=== PATIENT | female | born 1970 | race Caucasian/White ===

== ENCOUNTER 2017-09-28 15:01 | Emergency (ER) | payer OTHER, MEDICARE ==
[~2017-09-28] VITALS: Ht 165.1 cm; Wt 90.7 kg
[~2017-09-28 15:01] MED LIST: AMOXICILLIN125 MG PO; DEPLIN15 MG PO; DIAZEPAM2 MG PO; DOXYCYCLINE HY100 MG PO; FLAGYL500 MG PO; HYDROCODON-ACE1 EAC8 PO; KEPPRA500 MG PO; LEVEMIR FL100 UNIT/1 SQ; LEVEMIR100 UNIT/1 SUB-Q; LEVOTHYROXINE75 MCG PO; LYRICA75 MG PO; METANX CAPSULE1 EACH PO; METOPROLOL SUCC25 MG PO; OXYCODONE HCL5 M1 PO; PERCOCET 5-3251 EACH PO; SIMVASTATIN40 MG PO; UNIVASC15 MG PO; VALACYCLOVIR1000 MG PO; VERAPAMIL ER120 M1 PO; VITAMIN D5000 UNIT; [UNRECOGNIZED DRUG - OTHER] IM; [UNRECOGNIZED DRUG - OTHER] PO
== END 2017-09-28 18:55 | disposition home or self-care (01) ==
LOC: ED 15:01
DX: G43.909 Migraine, unspecified, not intractable, without status migrainosus (principal); F17.200 Nicotine dependence, unspecified, uncomplicated; Z90.710 Acquired absence of both cervix and uterus; Z90.49 Acquired absence of other specified parts of digestive tract; Z88.5 Allergy status to narcotic agent; Z88.8 Allergy status to other drugs, medicaments and biological substances; Z79.4 Long term (current) use of insulin; Z79.899 Other long term (current) drug therapy
CPT/HCPCS: 96374; 96375; 99282; J1200; J1885; J2405; J2765; J7030

== ENCOUNTER 2017-10-10 12:14 | Emergency (ER) | payer OTHER, MEDICARE ==
[~2017-10-10] VITALS: Ht 165.1 cm; Wt 86.2 kg
--- OUTSIDE RECORDS SUMMARY | ~2017-10-10 | XMS | Clinical Summary ---
Demographics + + + | Address | [address] | | | [place] [address] | + + + | Home Phone | | + + + | Preferred Language | Unknown | + + + | Marital Status | | + + + | Gnosticist Affiliation | Unknown | + + + | Race | White | + + + | Ethnic Group | Not or | + + + Author + + + | Author | [facility] | + + + | Organization | [facility] | + + + | Address | Unknown | + + + | Phone | Unavailable | + + + Support +------+ +---------+ + | Name | Relationship | Address | Phone | +------+ +---------+ + ECON | Unknown | | +------+ +---------+ + Care Team Providers + +------+ + | Care Performance Consultant Name | Role | Phone | + +------+ + PP | Unavailable | + +------+ + Source Comments [facility] is fully live on both [facility] and [facility] InPatient[facility] Allergies + + + + + + | Active Allergy | Reactions | Severity | Noted | Comments | | | | | Date | | + + + + + + | Codeine | | High | 12/26/19 | | | | | | 07 | | + + + + + + Current Medications + + +-------+---------+------+------+-------+ | Prescription | Sig. | Disp. | Refills | Star | End | Statu | | | | | | t | Date | s | | | | | | Date | | | + + +-------+---------+------+------+-------+ | INSULIN 70/30 SC | None Entered | | | | | Activ | | | | | | | | e | + + +-------+---------+------+------+-------+ | TOPAMAX 25 MG TAB | 2 tabs q am, 3 tabs | | | | | Activ | | | q hs | | | | | e | + + +-------+---------+------+------+-------+ | UNIVASC OR | 30 mg qd | | | | | Activ | | | | | | | | e | + + +-------+---------+------+------+-------+ | GABAPENTIN 100 MG | 2 tabs qid | | | | | Activ | | TAB | | | | | | e | + + +-------+---------+------+------+-------+ | CYMBALTA 30 MG CAP | 3 caps qd | | | | | Activ | | | | | | | | e | + + +-------+---------+------+------+-------+ | SEROQUEL 300 MG | take 1 tablet | | | | | Activ | | TAB | (300mg) by oral | | | | | e | | | route once daily | | | | | | + + +-------+---------+------+------+-------+ | VICODIN HP 10 | take 1 tablet by | | | | | Activ | | MG-660 MG TAB | oral route every 4-6 | | | | | e | | | hours as needed for | | | | | | | | pain | | | | | | + + +-------+---------+------+------+-------+ | alprazolam (XANAX) | Take 1 mg by mouth | | | | | Activ | | 1 mg Oral Tablet | as needed. | | | | | e | + + +-------+---------+------+------+-------+ | levothyroxine 75 | Take 75 mcg by mouth | | | | | Activ | | mcg Oral Tablet | once daily. | | | | | e | + + +-------+---------+------+------+-------+ | Albuterol, Refill, | Inhale. | | | | | Activ | | 90 mcg/Actuation | | | | | | e | | Inhalation Aerosol | | | | | | | + + +-------+---------+------+------+-------+ | pregabalin | Take by mouth two | | | | | Activ | | (LYRICA) 75 mg Oral | times daily. Max: | | | | | e | | Capsule | 600 mg/day | | | | | | + + +-------+---------+------+------+-------+ | tizanidine | Take 4 mg by mouth | | | | | Activ | | (ZANAFLEX) 4 mg Oral | every six hours as | | | | | e | | Tablet | needed. Max: 36 mg / | | | | | | | | day. | | | | | | + + +-------+---------+------+------+-------+ | metoprolol 25 mg | Take 25 mg by mouth | | | | | Activ | | Oral Tablet | two times daily. | | | | | e | + + +-------+---------+------+------+-------+ | promethazine | Take 25 mg by mouth | | | | | Activ | | (PHENERGAN) 25 mg | four times daily as | | | | | e | | Oral Tablet | needed for | | | | | | | | nausea/vomiting. | | | | | | + + +-------+---------+------+------+-------+ | immune globulin, | Inject into the | | | | | Activ | | IGG, 10 % | vein (IV) once. | | | | | e | | Intravenous | | | | | | | | Injectable | | | | | | | + + +-------+---------+------+------+-------+ | lansoprazole | Take 30 mg by mouth | | | | | Activ | | (PREVACID) 30 mg | once daily in the | | | | | e | | Oral Capsule, | morning. Administer | | | | | | | Delayed | before food; best if | | | | | | | Release(E.C.) | taken before | | | | | | | | breakfast. | | | | | | + + +-------+---------+------+------+-------+ | ergocalciferol | Take 1 Cap by mouth | 5 | 3 | 12/ | | Activ | | (VITAMIN D) 50,000 | every seven days. | | | 08/14 | | e | | unit Oral Capsule | | | | 09 | | | + + +-------+---------+------+------+-------+ Active Problems + + + | Problem | Noted Date | + + + | Myositis | 10/28/2009 | + + + | Acid reflux | | + + + Social History + +-------+ [...] on file | | + + + Last Filed Vital Signs + + + + | Vital Sign | Reading | Time Taken | + + + + | Blood Pressure | 157/73 | 10/28/2009 8:01 AM PST | + + + + | Pulse | 82 | 10/28/2009 8:01 AM PST | + + + + | Temperature | 37.3 C (99.1 F) | 12/26/2006 10:31 AM PST | + + + + | Respiratory Rate | 16 | 10/28/2009 8:01 AM PST | + + + + | Oxygen Saturation | - | - | + + + + | Inhaled Oxygen | - | - | | Concentration | | | + + + + | Weight | 112 kg (247 lb) | 10/28/2009 8:01 AM PST | + + + + | Height | 165.1 cm (5' 5") | 12/26/2006 10:31 AM PST | + + + + | Body Mass Index | 41.1 | 10/28/2009 8:01 AM PST | + + + + Plan of Treatment + + + + + | Health Maintenance | Due Date | Last Done | Comments | + + + + + | INFLUENZA VACCINE | | | | | (FLU SHOT) | 7 | | | + + + + + Results Not on filefrom Last 3 Months
[2017-10-10] MEDS ORDERED: ZITHROMAX250 MG PO (13:14)
--- NOTE | 2017-10-10 20:42 | EKG ---
[facility] [address] [facility] [facility] [address] [place] [address] Signed Normal sinus rhythm Normal ECG No previous ECGs available Confirmed by YOLIE SAAB MD ([id number]) on 10/10/2017 8:42:41 PM Electronically Signed By: YOLIE SAAB MD 10/10/172041 PATIENT NAME: RUCHI PRAJAPATI Electrocardiogram DATE OF : 68 PHYSICIAN: YOLIE SAAB MD REPORT #: [id number] REPORT IS CONFIDENTIAL AND NOT TO BE RELEASED WITHOUT AUTHORIZATION
== END 2017-10-10 13:32 | disposition home or self-care (01) ==
LOC: ED 12:14
DX: J40 Bronchitis, not specified as acute or chronic (principal); E11.65 Type 2 diabetes mellitus with hyperglycemia; F41.9 Anxiety disorder, unspecified; F17.200 Nicotine dependence, unspecified, uncomplicated; Z90.49 Acquired absence of other specified parts of digestive tract; Z88.5 Allergy status to narcotic agent; Z88.8 Allergy status to other drugs, medicaments and biological substances; Z79.899 Other long term (current) drug therapy; Z79.4 Long term (current) use of insulin
CPT/HCPCS: 71010; 80053; 84484; 85025; 93005; 93010; 99284

== ENCOUNTER 2019-01-07 06:50 | Day surgery (SDC) | payer OTHER, MEDICARE ==
[~2019-01-07] VITALS: Ht 165.1 cm; Wt 89.8 kg
[~2019-01-07 06:50] MED LIST changes: +ZITHROMAX250 MG PO
[2019-01-07] MEDS ORDERED: HYDROCODON-ACE1 EA11 PO (10:28)
[2019-01-07] MEDS ORDERED: CELECOXIB200 MG PO (10:28)
[2019-01-07] MEDS ORDERED: SENNA LAX8.6 MG PO (10:28)
--- NOTE | 2019-01-07 10:55 | NUR ---
01/07/19 1055 Uyen Hoyos 1033 PT ARRIVED IN PACU SLEEPY WITH NO C/O'S. L SHOULDER HAS IMMOBILIZER IN PLACE ON ARRIVAL. PLACED CRYO CUFF PER DR ORDERS. BLOOD SUGAR 91.
--- NOTE | 2019-01-07 12:56 | NUR ---
1115 PT ARRIVES FROM PACU. REPORT GIVEN TO WES RN. PT DOING WELL. AWAKE WATCHING TV. PT TOLERATING WATER AND CRACKER. NO FURTHER NEEDS AT THIS TIME, CALL LIGHT IN REACH.
--- NOTE | 2019-01-07 12:58 | NUR ---
1215 IN TO CHECK ON PT, DOING WELL. ASSISTED UP TO BATHROOM, PT TOLERATED WELL. STEADY ON FEET. PT DENIES PAIN AND NAUSEA. OFFERED FOOD, PT DECLINED. DISCUSS DISCHARGE CRITERIA, PT WOULD LIKE TO GO HOME. IV DC'D. PT DRESSED WITH ASSISTANCE FROM . DS DISCHARGE ALONG WITH DR. MCDANIELS DISCHARGE INSTRUCTIONS GIVEN. PT WHEELED OUT TO WAITING CAR.
--- NOTE | 2019-01-08 07:41 | OR ---
[facility] [address] [place] [address] Signed DATE OF OPERATION: 01/07/2019 SURGEON: Avila Bobo MD PREOPERATIVE DIAGNOSIS: Rotator cuff tear, left shoulder. POSTOPERATIVE DIAGNOSIS: Rotator cuff tear, left shoulder. PROCEDURE PERFORMED: Left shoulder arthroscopy with rotator cuff repair. MONOMER RECOVERY OPERATOR: Billie Mercado PA-C. Billie was present and critical for positioning, camera holding, and closure. ANESTHESIA: General with interscalene block. BLOOD LOSS: Minimal. IMPLANTS: One 4.75 SwiveLock with FiberTape. BRIEF HISTORY: Bing is a 48-year-old female with pain in her shoulder. Nonoperative treatment had failed to control symptoms. We did get an MRI, which showed a small full-thickness rotator cuff tear in the anterior supraspinatus. Risks and benefits of operative treatment were discussed with her and she elected to proceed. DESCRIPTION OF PROCEDURE: Once consent was obtained, she was taken to the operating room. After adequate anesthesia, she was placed in a beach chair position. All downside pressure points were well padded. The left shoulder was prepped and draped in a standard sterile fashion. Shoulder was injected with 15 mL 0.25% Marcaine with epinephrine under alcohol prep as was the subacromial space. The standard posterior portal was made and the scope was introduced in the shoulder. There was significant arthroscopic finding with some hemosiderin staining. There was a minor tear to the biceps right at the rotator cuff Electronically Signed By: AVILA BOBO MD 01/08/19 0741 PATIENT NAME: RUCHI PRAJAPATI OPERATIVE REPORT DATE OF : 68 REPORT #: [id number] PHYSICIAN: AVILA BOBO MD PCP: AMANDA SEVILLA MD REPORT IS CONFIDENTIAL AND NOT TO BE RELEASED WITHOUT AUTHORIZATION [facility] [address] [place], [place] [address] Signed interval. The glenohumeral surface was intact, a biceps anchor was intact, and the labrum was intact. Undersurface of the rotator cuff showed a full-thickness 1 cm to 1.5 cm tear. The diagnostic arthroscopy was undertaken as noted above. Standard anterior portal was made and partial synovectomy was performed. The rotator cuff tear was debrided on its undersurface of all the loose and devitalized tissue. Scope was then withdrawn, placed in subacromial space and the standard lateral and anterior lateral portals were made and the bursa was removed. The rotator cuff was easily identifiable. Bone was trimmed again any devitalized tissue. The tuberosity was then cleaned of soft tissue and decorticated slightly to create a bleeding bed. A FiberTape was then placed in inverted mattress configuration of the rotator cuff with about 1 cm of separation to the two limbs. The anchor was then placed in the tuberosity and under appropriate tension, the anchor was driven until it was well seated and it was screwed in. The FiberTape ends were then cut. There was still a little bit of a dog-ear rotator cuff in the posterior aspect. A suture passer was then placed through this and one of the #2 anchor sutures from the anchor were placed through this and it was tied using standard arthroscopic knot-tying techniques. The suture ends were cut. At the end of the procedure, we rotated the shoulder the cuff tear was quite stable and there was excellent crimson duvet. The scope was withdrawn. Portals closed with 3-0 nylon and dressed with ProWick dressing. She was awakened and taken to recovery room in satisfactory condition. All sponge, needle, and instrument counts were correct. Avila Bobo MD BA/MODL /[id number] Copies: ~ Electronically Signed By: AVILA BOBO MD 01/08/19 0741 PATIENT NAME: RUCHI PRAJAPATI OPERATIVE REPORT DATE OF : 68 REPORT #: [id number] PHYSICIAN: AVILA BOBO MD PCP: AMANDA SEVILLA MD REPORT IS CONFIDENTIAL AND NOT TO BE RELEASED WITHOUT AUTHORIZATION
== END 2019-01-07 12:45 | disposition home or self-care (01) ==
LOC: OPS 06:50 → DS 06:50 → OPS 11:15 → DS 11:15 → OPS 12:45
PROVIDERS: Specialist
PROC: 0LQ24ZZ Repair Left Shoulder Tendon, Percutaneous Endoscopic Approach (ICD-10-PCS; principal; 2019-01-07 11:15)
DX: S46.012A Strain of muscle(s) and tendon(s) of the rotator cuff of left shoulder, initial encounter (principal); E11.9 Type 2 diabetes mellitus without complications; I10 Essential (primary) hypertension; J45.909 Unspecified asthma, uncomplicated; G43.009 Migraine without aura, not intractable, without status migrainosus; M79.7 Fibromyalgia; G89.4 Chronic pain syndrome; E03.9 Hypothyroidism, unspecified; F33.9 Major depressive disorder, recurrent, unspecified; M17.11 Unilateral primary osteoarthritis, right knee; M81.8 Other osteoporosis without current pathological fracture; Z88.5 Allergy status to narcotic agent; Z88.8 Allergy status to other drugs, medicaments and biological substances; Z79.899 Other long term (current) drug therapy; Z79.4 Long term (current) use of insulin; Z87.891 Personal history of nicotine dependence; Z88.2 Allergy status to sulfonamides; W06.XXXA Fall from bed, initial encounter
CPT/HCPCS: 01630; 64415; 76942; C1713; J0690; J2250; J2405; J2704; J2765; J2795; J3010; J7120

== ENCOUNTER 2019-11-12 18:07 | Emergency (ER) | payer OTHER, MEDICARE ==
[~2019-11-12] VITALS: Ht 165.1 cm; Wt 89.8 kg
--- OUTSIDE RECORDS SUMMARY | ~2019-11-12 | XMS | Encounter Summary ---
Demographics + + + | Address | [address] | | | [place] [address] | + + + | Home Phone | | + + + | Preferred Language | Unknown | + + + | Marital Status | | + + + | Protestant Affiliation | Unknown | + + + | Race | White | + + + | Ethnic Group | Not or | + + + Author + + + | Organization | Unknown | + + + | Address | Unknown | + + + | Phone | Unavailable | + + + Support + + +---------+ + | Name | Relationship | Address | Phone | + + +---------+ + | Kourtney Galeas | ECON | Unknown | | + + +---------+ + Care Team Providers + +------+ + | Care Behavioral Sciences Instructor Name | Role | Phone | + +------+ + | Macho Graf MD | PCP | | + +------+ + Encounter Details +--------+ + + + + | Date | Type | Department | Care Team | Description | +--------+ + + + + | 02/12/ | [facility] | | Letter, Clinic | Letters | | 2006 | scribed | | | | +--------+ + + + + Social History + +-------+ +--------+------+ | Tobacco Use | Types | Packs/Day | Years | Date | | | | | Used | | + +-------+ +--------+------+ | Never Assessed | | | | | + +-------+ +--------+------+ + + + | Sex Assigned at | Date Recorded | | | | + + + | Not on file | | + + + + + + + | Job Start Date | Occupation | Industry | + + + + | Not on file | Not on file | Not on file | + + + + + + + + | Travel History | Travel Start | Travel End | + + + + + + | No recent travel history available. | + + documented as of this encounter Progress Notes Interface, Cow Puncher In - 02/14/2006 2:09 AM PST [id number] 02/12/2006 02/12/2006 [id number] GAIL [place] [address] [place] [address] or February 13, 2006 Juaquin Maguire MD [address] [place] [address]., [address] [place] [address] RE: HALI REYNOLDS MR #: [id number] Dear Dr. Maguire, Dr. Andrew Jones and I had the opportunity to see Hali Reynolds in the [facility] today. As you know, Mrs. Reynolds is a 35-year-old woman, with diabetes, hypothyroidism, migraines, history of carpal tunnel, as well as depression and anxiety, who presents with a 3-4 year history of ongoing weakness. She is referred for further evaluation for her weakness, and management of possible polymyositis. Per Mrs. Reynolds, she initially had a decline in her motor functioning in 2000, following a back injury. At that time, she was moving a heavy bale of papers, and subsequently sustained a back injury. Her initial symptoms included left hip pain. This later evolved to also include right hip pain. Since that time, she has been unable to work. One year later, Mrs. Reynolds began experiencing weakness throughout her body. She states that her weakness is both proximal and distal, and involves all four extremities. This weakness can randomly worsen, and does seem to fluctuate from day to day. On her bad days, she is unable to humble. She states that if she were to squat to garden for ten minutes, this would be followed by three days of worsening leg weakness, and back pain. Associated with her weakness, she also describes numbness and other sensory changes. Her numbness is mainly in her feet, but occasionally she also has symptoms in her hands. She has pins and needles sensations in the back of her legs. She denies any tingling in her fingers. A muscle biopsy was performed in July of 2005, and did reveal some inflammatory changes. At this time, given her weakness and muscle and inflammatory changes, there was a concern for polymyositis. She has now been on methotrexate for the last six months. She was not started on steroids secondary to her difficult to control diabetes. She states that she has not noted any improvement in her weakness while on methotrexate. Two weeks ago, she received an IVIG, a one-day treatment. She states that after receiving IVIG, her symptoms did improve for two days, and then returned. She was scheduled for a second treatment two days ago, but cancelled, awaiting this appointment. REVIEW OF SYSTEMS: As described above, from a neurological standpoint, she endorses frequent falls, incoordination, clumsiness, and a decline in her handwriting. She also notes mood changes. Her ongoing weakness and fatigue, is associated with sweats and chills. She feels that she "sweats too much." She will experience dizziness with postural changes. She continues to have ongoing headaches, which did improve when she was taking Topamax. She was recently seen by an toppiece chopper, and prescribed a new pair of glasses, which she has been unable to fill. She states that her current symptoms are associated with vision changes. She denies double vision. She does endorse some swallowing difficulties, particularly with solids, such as bread or rice. From a musculoskeletal standpoint, she describes pain in her joints, and occasional swelling, redness, and stiffness in her joints. Associated with her symptoms, which began in 2000, she has had a recurring "rash." These are small recurring papules, which are present both on her extremities, as well as in her scalp. The remainder of the ten-point review of systems are reviewed, and pertinents are as described above. PAST MEDICAL HISTORY: 1. Diabetes. This was diagnosed six years ago. She is insulin dependent. She notes that she has been difficult to control. 2. Hypertension for ten years. 3. Hypothyroidism for 15 years. 4. Asthma. 5. Lumpectomy, benign. 6. Cholecystectomy. 7. Hysterectomy. 8. Stomach ulcers. 9. Depression, anxiety, and PTSD. 10. Bipolar disorder. 11. History of sinus reconstruction. 12. Migraines. 13. Bilateral carpal tunnel release in . 14. A skin and muscle biopsy. MEDICATIONS: 1. Byetta 5 mg b.i.d. 2. Lantus insulin 40 mg b.i.d. 3. Humalog sliding scale three times a day. 4. Hydrocodone/APAP 10/325 mg, one tablet every 3-4 hours. 5. Alprazolam 0.5 mg, three per day. 6. Gabapentin 800 mg four times a day. 7. Clonazepam 0.5 mg as needed. 8. Topamax one in the morning, and two at night. 9. Zanaflex 4 mg as needed. 10. Seroquel 200 mg three times a day, and 400 mg at bedtime. 11. Prevacid 30 mg daily. 12. Paxil 60 mg daily. 13. Univasc 15 mg daily. 14. Synthroid 0.5 mg q.a.m. 15. Methotrexate eight pills once a week. ALLERGIES: CODEINE CAUSES HIVES, AND ITCHING. FAMILY HISTORY: There are no family members with known weakness or neuropathy. SOCIAL HISTORY: Currently, Mrs. Reynolds is disabled. 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 She does have a ten-pack year history of smoking, but has since quit. She was never a heavy drinker. She denies any HIV risk factors, and does endorse some stress. PHYSICAL EXAMINATION: Weight 227 pounds, height 5 feet 5 inches, blood pressure 122/78, pulse 82, respiratory rate of 20. GENERAL: Mrs. Reynolds was pleasant and cooperative. HEENT: Neck was supple. SKIN: There were discreet, erythematous papules noted on the extremities and the face. Some of these papules did appear pustular. They were not contiguous. NEUROLOGIC EXAMINATION: Mental Status - Alert and oriented x3, she was a good historian. She answered questions appropriately. Her speech was clear and fluent. Cranial Nerves - Funduscopic examination revealed normal disks. Pupils were equal, round, and reactive to light. Extraocular movements were intact. There was no evidence of ptosis or eye closure weakness. Ptosis could not be induced with sustained upgaze. No facial sensation loss. Her smile was symmetric. Hearing was normal to bedside testing. The palate lifted symmetrically. No dysphonia or dysarthria. Sternocleidomastoid strength was 5/5. The tongue was midline without atrophy or vesiculations. Motor - Normal tone and muscle bulk. No fasciculations were appreciated. Strength by manual muscle testing did reveal some mild weakness at 5 minus in the deltoids, biceps, and triceps. No distal upper extremity weakness was appreciated. In the lower extremities, again, mild weakness was present in the hip flexors at 5 minus. Leg extension and flexion, as well as ankle dorsiflexion and plantar flexion were 5/5. Reflexes - Reflexes were 2+ in the upper extremities. In the lower extremities, 3+ patellar reflexes were present. One plus ankle jerks were appreciated. Toes were downgoing. No clonus. Sensation - Sensation was reduced distally to vibration, pin prick, and position. Coordination - Xdmajt-un-xewl testing did not reveal any dysmetria. Fine finger movements were intact. Romberg was negative. Gait - She had a slow and more cautious gait, with no clear asymmetries noted. Functionally, she was unable to walk on her heels, as her left heel was painful. DIAGNOSTIC STUDIES: Prior investigations have included several laboratory studies. Her chemistries have been significant for an elevation in glucose at 229. Her AST and ALT were also elevated at 87 and 74 respectively. Her CBC has been normal. CPK was normal at 168. Sedimentation rate was elevated at 21, with a range of 0-20, and her aldolase was elevated at 15.8, with a range of 1-8. These laboratories were obtained in October of 2005. A prior CPK from August of 2005, was mildly elevated at 226, with a range of 27-210, however, a CK obtained two days prior, was in a normal range at 80. Her sedimentation rate from August of 2005, was in a normal range. An EMG performed in April of 2005 did not reveal any evidence of myopathy. I do not see where nerve conduction studies were performed. Her muscle biopsy from June of 2005, was read by Dr. Piper and noted to have rare lymphocytic collections, as well as some degenerating and regenerating fibers. There was a concern for inflammatory myositis, however, these changes were small in number, and not felt to be sufficient for a diagnosis of inflammatory myopathy. IMPRESSION: 1. Weakness. 2. Numbness and sensory changes. 3. Back and hip pain. Mrs. Reynolds is a 35-year-old lady, with difficult to control diabetes, hypothyroidism, and history of a back injury, who presents with a roughly three-year history of ongoing weakness, numbness, and sensory changes. With regards to her weakness, she has had a prior muscle biopsy, which was concerning for inflammatory features. Her EMG, however, did not reveal myopathic changes. Her CPK has only been mildly elevated on one occasion. Her examination and course is somewhat atypical for polymyositis. At this point, I would like to review her muscle biopsy in her upcoming conference, now knowing her clinical course, before deciding whether any other diagnostic testing should be performed. However, as mentioned, clinically she is atypical for polymyositis. Until her diagnosis can be further confirmed, interventions such as methotrexate or IVIG may not be warranted. From a motor function standpoint, Mrs. Reynolds seems to be most limited by her pain. She currently ambulates with a cane. I will have our physical therapist see her today. She may also be a good candidate for a pain clinic in the future. In addition, Mrs. Reynolds does endorse some numbness and dysesthesias in her distal extremities. Her examination is notable for distal sensory changes. She would have several reasons for having a neuropathy, including her history of difficult to control diabetes, as well as hypothyroidism. If she has not already been evaluated for a neuropathy, then we would recommend nerve conduction studies. This could be done locally. Should she have an underlying neuropathy, this may help with regards to choosing a neuropathic medication to treat her pain. Lastly, Mrs. Reynolds did describe some swallowing difficulty today. She primarily has difficulty with swallowing solids. I am uncertain at this point, if clinically, neurological dysphagia typically presents with difficulty with liquids. I have asked her to follow up with her primary care physician, with regards to her swallowing difficulty, as this may be related to her stomach and esophageal disease. RECOMMENDATIONS: 1. Review muscle biopsy. 2. Therapy assessment. 3. Follow up and further evaluation to be determined pending review of the biopsy. This patient was seen and examined with Dr. Andrew Jones. Eighty (80) minutes of clinic time was spent in consultation, with the patient, half of which was in counseling. Thank you for the opportunity to see Mrs. Reynolds today. Please feel free to contact us should you have any further questions. Sincerely, Karina Michelle M.D. Andrew Jones M.D. / [id number] / [id number] / [id number] / cc: Macho Graf MD P[address]OMar[address] [place] [address] Atul Pepper MD [address] [place] [address] Garry Ojeda MD [address] [place] [address] Jacques sweeney [address] [place] [id number] documented i n this encounter Plan of Treatment Not on filedocumented as of this encounter Visit Diagnoses Not on filedocumented in this encounter
--- OUTSIDE RECORDS SUMMARY | ~2019-11-12 | XMS | Encounter Summary ---
Demographics + + + | Address | [address] | | | [place] [address] | + + + | Home Phone | | + + + | Preferred Language | Unknown | + + + | Marital Status | | + + + | Uatsdin Affiliation | Unknown | + + + | Race | White | + + + | Ethnic Group | Not or | + + + Author + + + | Author | [facility] | + + + | Organization | [facility] | + + + | Address | Unknown | + + + | Phone | Unavailable | + + + Support + + +---------+ + | Name | Relationship | Address | Phone | + + +---------+ + | Kourtney Galeas | ECON | Unknown | | + + +---------+ + Care Team Providers + +------+ + | Care Sales Porter Name | Role | Phone | + +------+ + | Macho Graf MD | PCP | | + +------+ + Reason for Visit + + + | Reason | Comments | + + + | Return Patient | | + + + Encounter Details +--------+---------+ + + + | Date | Type | Department | Care Team | Description | +--------+---------+ + + + | 12/26/ | Office | Neurology at | Andrew Jones MD | Fibromyalgia | | 2006 | Visit | [facility] & | [address] | Syndrome (Primary | | | | [address] | [place], [place] | Dx) | | | | [address] [place] Mailcode: | [address] | | | | | [facility] | [phone] | | | | | Health and Healing, | | | | | | Building [address], | | | | | | Floor [place], [place] | | | | | | [address] | | | | | | [phone] | | | +--------+---------+ + + + Social History + +-------+ [...] + + documented as of this encounter Last Filed Vital Signs + + + + + | Vital Sign | Reading | Time Taken | Comments | + + + + + | Blood Pressure | 148/83 | 12/26/2006 10:31 AM | | | | | PST | | + + + + + | Pulse | 105 | 12/26/2006 10:31 AM | | | | | PST | | + + + + + | Temperature | 37.3 C (99.1 F) | 12/26/2006 10:31 AM | | | | | PST | | + + + + + | Respiratory Rate | 20 | 12/26/2006 10:31 AM | | | | | PST | | + + + + + | Oxygen Saturation | - | - | | + + + + + | Inhaled Oxygen | - | - | | | Concentration | | | | + + + + + | Weight | 102.5 kg (226 lb) | 12/26/2006 10:31 AM | | | | | PST | | + + + + + | Height | 165.1 cm (5' 5") | 12/26/2006 10:31 AM | | | | | PST | | + + + + + | Body Mass Index | 37.61 | 12/26/2006 10:31 AM | | | | | PST | | + + + + + documented in this encounter Progress Andrew Stephen - 12/26/2006 11:00 AM PSTThis office note has been dictated. documented in this encount er Plan of Treatment Not on filedocumented as of this encounter Visit Diagnoses + + | Diagnosis | + + | Fibromyalgia syndrome - Primary Mylagia and myositis, unspecified | + + documented in this encounter
--- OUTSIDE RECORDS SUMMARY | ~2019-11-12 | XMS | Encounter Summary ---
Demographics + + + | Address | [address] | | | [place] [address] | + + + | Home Phone | | + + + | Preferred Language | Unknown | + + + | Marital Status | | + + + | Anabaptist Affiliation | Unknown | + + + | Race | White | + + + | Ethnic Group | Not or | + + + Author + + + | Author | [facility] | + + + | Organization | [facility] | + + + | Address | Unknown | + + + | Phone | Unavailable | + + + Support + + +---------+ + | Name | Relationship | Address | Phone | + + +---------+ + | Kourtney Galeas | ECON | Unknown | | + + +---------+ + Care Team Providers + +------+ + | Care Access Database Developer Name | Role | Phone | + +------+ + | Macho Graf MD | PCP | | + +------+ + Encounter Details +--------+ + + + + | Date | Type | Department | Care Team | Description | +--------+ + + + + | 11/10/ | Clinical Education Academic Coordinator | Neurology at | Alexey Read MD | Myopathy (Primary | | 2008 | | [facility] & | | Dx) | | | | [address]aling [address] | | | | | | [place] Mailcode: | | | | | | [facility] | | | | | | Health and Healing, | | | | | | [facility] | | | | | | [place], [place] | | | | | | [address] | | | | | | [phone] | | | +--------+ + + + [...] + + documented as of this encounter Plan of Treatment Not on filedocumented as of this encounter Visit Diagnoses + + | Diagnosis | + + | Myopathy - Primary Myopathy, unspecified | + + documented in this encounter"
--- OUTSIDE RECORDS SUMMARY | ~2019-11-12 | XMS | Encounter Summary ---
Demographics + + + | Address | [address] | | | [place] [address] | + + + | Home Phone | | + + + | Preferred Language | Unknown | + + + | Marital Status | | + + + | Jew Affiliation | Unknown | + + + [...] Team Providers + +------+ + | Care Middle School Director Name | Role | Phone | + +------+ + | Macho Graf MD | PCP | | + +------+ + Encounter Details +--------+ + + + + | Date | Type | Department | Care Team | Description | +--------+ + + + + | 02/12/ | Office | | Rehab Therapist, P | | | 2005 | Visit - | | T | | | | Rehab | | | | +--------+ + + [...] Not on filedocumented as of this encounter Procedures + +--------+ + + + | Procedure Name | Priori | Date/Time | Associated Diagnosis | Comments | | | ty | | | | + +--------+ + + + | PHYSICAL THERAPY | Routin | 02/12/2006 | | Results for this | | EVAL | e | 5:43 PM | | procedure are in the | | | | PST | | results section. | + +--------+ + + + documented in this encounter Results PHYSICAL THERAPY EVVIRGILIO (02/12/2006 5:43 PM PST) + + + + + + | Component | Value | Ref Range | Performed | Pathologist | | | | | At | Signature | + + + + + + | PHYSICAL | [facility] | | [facility] | | | THERAPY | EVALUATION GAIL , | | REHABILITAT | | | EVAL | HALI [place] MR # [id number] | | [facility] | | | | Referring Practioner: | | | | | | MD Andrew Duarte | | | | | | MD Robert | | | | | | Referral/Treatment | | | | | | Diagnosis/ICD-9: 359.1 | | | | | | Primary | | | | | | Diagnosis/ICD-9: 359.1 | | | | | | Insurance: Commercial | | | | | | Start of care: | | | | | | 02/12/2006 Date of | | | | | | onset/surgery date: | | | | | | 11/25/2005 Visits | | | | | | used/authorized: 1/? | | | | | | | | | | | | Subjective: History of | | | | | | Presenting Problem: | | | | | | Additional problems: | | | | | | IDDM, hypothyroidism | | | | | | Patients current | | | | | | complaints are: | | | | | | weakness, numbness, | | | | | | tingling and | | | | | | pain,falling, dropping | | | | | | things, problems | | | | | | swallowing and choking, | | | | | | problems talkingat | | | | | | times, problems with | | | | | | memory. Previous | | | | | | treatment: medical | | | | | | care Concurrent | | | | | | treatment: PT and OT | | | | | | Current functional | | | | | | status: Lives in | | | | | | [place] with | | | | | | and threechildren, | | | | | | disabled and not | | | | | | employed, no longer able | | | | | | to do ADL's | | | | | | orrecreational things | | | | | | like crafts due to | | | | | | problems with fine motor | | | | | | skills.Reports DM is | | | | | | not well controlled in | | | | | | spite of multiple | | | | | | injectable insulinmeds. 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 Functional | | | | | | status prior to onset | | | | | | date: independent | | | | | | Patient's goals: | | | | | | decrease pain, safe | | | | | | walking/mobility, able | | | | | | to do more ADL and fine | | | | | | motor activities. | | | | | | Objective: Walks with | | | | | | cane slowly and point to | | | | | | left hip as site of | | | | | | pain. Treatment Today: | | | | | | brief eval | | | | | | Identified need for PT | | | | | | and OT for complete | | | | | | assessment and | | | | | | recommendations.Also | | | | | | needs ST for swallow | | | | | | eval and treatment. | | | | | | [place] [facility] [place]. | | | | | | Will get ST swallow eval | | | | | | there or here if not | | | | | | able to get itdone in | | | | | | [place]. | | | | | | Assessment: Treatment | | | | | | Diagnosis: same as | | | | | | above weakness, | | | | | | numbness, tingling and | | | | | | pain, falling, dropping | | | | | | things, | | | | | | problemsswallowing and | | | | | | choking, problems | | | | | | talking at times, | | | | | | problems with memory. | | | | | | Goals discussed with | | | | | | patient. Individual | | | | | | cultural needs | | | | | | addressed. Rehab | | | | | | Potential Good. | | | | | | Critical | | | | | | behavior/Cognitive | | | | | | Status: Patient | | | | | | understands treatment | | | | | | plan.Patient understands | | | | | | and follows directions. | | | | | | Co-morbidities that | | | | | | affect goals and | | | | | | treatment plan/Obstacles | | | | | | torehabilitation: | | | | | | medical condition. | | | | | | Patient's knowledge of | | | | | | disease process: | | | | | | fair. Plan: PT | | | | | | and OT and ST in | | | | | | [place] or [place] | | | | | | Frequency/Duration: as | | | | | | determined Treatment | | | | | | began: 2 Treatment | | | | | | ended: 2:30 This | | | | | | note is to serve as the | | | | | | discharge summary if the | | | | | | patient fails toattend | | | | | | further Physical | | | | | | Therapy appointments or | | | | | | contact the | | | | | | therapistregarding any | | | | | | change in their status. | | | | | | Yumiko Lawler, MS, PT | | | | | | License | | | | | | Number [id number] | | | | + + + + + + + + | Specimen | + + | | + + + + + + + | Performing | Address | City/State/Zipcode | Phone Number | | Organization | | | | + + + + + | [facility] | [address] | [place], [place] | | | REHABILITATION | [facility] | [address] | | | THERAPY | | | | + + + + + | [facility] | [address] | [place], [place] | | | REHABILITATION | [facility] | [address] | | | THERAPY | | | | + + + + + documented in this encounter Visit Diagnoses Not on filedocumented in this encounter"
--- OUTSIDE RECORDS SUMMARY | ~2019-11-12 | XMS | Encounter Summary ---
Demographics + + + | Address | [address] | | | [place] [address] | + + + | Home Phone | | + + + | Preferred Language | Unknown | + + + | Marital Status | | + + + | Christianity Affiliation | Unknown | + + + | Race | White | + + + | Ethnic Group | Not or | + + + Author + + + | Author | [facility] | + + + | Organization | [facility] | + + + | Address | Unknown | + + + | Phone | Unavailable | + + + Support + + +---------+ + | Name | Relationship | Address | Phone | + + +---------+ + | Kourtney Galeas | ECON | Unknown | | + + +---------+ + Care Team Providers + +------+ + | Care Meterman Name | Role | Phone | + +------+ + | Macho Graf MD | PCP | | + +------+ + Encounter Details +--------+ + + + + | Date | Type | Department | Care Team | Description | +--------+ + + + + | 10/28/ | Hospital | LAB REFERRED TESTS | | | | 2009 | Encounter | [address] | | | | | | [address] | | | | | | [place], [place] | | | | | | [address] | | | +--------+ + + + [...] + + documented as of this encounter Medications at Time of Discharge + + + +---------+ + + | Medication | Sig | Dispensed | Refills | Start | End Date | | | | | | Date | | + + + +---------+ + + | Albuterol, Refill, | Inhale. | | 0 | | | | 90 mcg/Actuation | | | | | | | Inhalation Aerosol | | | | | | + + + +---------+ + + | alprazolam (XANAX) | Take 1 mg by mouth | | 0 | | | | 1 mg Oral Tablet | as needed. | | | | | + + + +---------+ + + | CYMBALTA 30 MG CAP | 3 caps qd | | 0 | | | + + + +---------+ + + | ergocalciferol | Take 1 Cap by mouth | 5 | 3 | 11/02/20 | | | (VITAMIN D) 50,000 | every seven days. | | | 09 | | | unit Oral Capsule | | | | | | + + + +---------+ + + | GABAPENTIN 100 MG | 2 tabs qid | | 0 | | | | TAB | | | | | | + + + +---------+ + + | immune globulin, | Inject into the | | 0 | | | | IGG, 10 % | vein (IV) once. | | | | | | Intravenous | | | | | | | Injectable | | | | | | + + + +---------+ + + | INSULIN 70/30 SC | None Entered | | 0 | | | + + + +---------+ + + | lansoprazole | Take 30 mg by mouth | | 0 | | | | (PREVACID) 30 mg | once daily in the | | | | | | Oral Capsule, | morning. Administer | | | | | | Delayed | before food; best if | | | | | | Release(E.C.) | taken before | | | | | | | breakfast. | | | | | + + + +---------+ + + | levothyroxine 75 | Take 75 mcg by mouth | | 0 | | | | mcg Oral Tablet | once daily. | | | | | + + + +---------+ + + | metoprolol 25 mg | Take 25 mg by mouth | | 0 | | | | Oral Tablet | two times daily. | | | | | + + + +---------+ + + | pregabalin | Take by mouth two | | 0 | | | | (LYRICA) 75 mg Oral | times daily. Max: | | | | | | Capsule | 600 mg/day | | | | | + + + +---------+ + + | promethazine | Take 25 mg by mouth | | 0 | | | | (PHENERGAN) 25 mg | four times daily as | | | | | | Oral Tablet | needed for | | | | | | | nausea/vomiting. | | | | | + + + +---------+ + + | SEROQUEL 300 MG | take 1 tablet | | 0 | | | | TAB | (300mg) by oral | | | | | | | route once daily | | | | | + + + +---------+ + + | tizanidine | Take 4 mg by mouth | | 0 | | | | (ZANAFLEX) 4 mg Oral | every six hours as | | | | | | Tablet | needed. Max: 36 mg / | | | | | | | day. | | | | | + + + +---------+ + + | TOPAMAX 25 MG TAB | 2 tabs q am, 3 tabs | | 0 | | | | | q hs | | | | | + + + +---------+ + + | UNIVASC OR | 30 mg qd | | 0 | | | + + + +---------+ + + | VICODIN HP 10 | take 1 tablet by | | 0 | | | | MG-660 MG TAB | oral route every 4-6 | | | | | | | hours as needed for | | | | | | | pain | | | | | + + + +---------+ + + documented as of this encounter Plan of Treatment Not on filedocumented as of this encounter Procedures + +--------+ + + + | Procedure Name | Priori | Date/Time | Associated Diagnosis | Comments | | | ty | | | | + +--------+ + + + | LAB REPORTS | | 10/28/2009 | | Results for this | | | | 12:00 AM | | procedure are in the | | | | PST | | results section. | + +--------+ + + + documented in this encounter Results LAB REPORTS (10/28/2009 12:00 AM PST) + + + | Narrative | Performed At | + + + | | | + + + + + | Procedure Note | + + | Marcelo Castellon - 10/28/2009 12:00 AM PST | | | + + documented in this encounter Visit Diagnoses Not on filedocumented in this encounter"
--- OUTSIDE RECORDS SUMMARY | ~2019-11-12 | XMS | Encounter Summary ---
Demographics + + + | Address | [address] | | | [place] [address] | + + + | Home Phone | | + + + | Preferred Language | Unknown | + + + | Marital Status | | + + + | Mandaeism Affiliation | Unknown | + + + | Race | White | + + + | Ethnic Group | Not or | + + + Author + + + | Author | [facility] | + + + | Organization | [facility] | + + + | Address | Unknown | + + + | Phone | Unavailable | + + + Support + + +---------+ + | Name | Relationship | Address | Phone | + + +---------+ + | Kourtney Galeas | ECON | Unknown | | + + +---------+ + Care Team Providers + +------+ + | Care Mortgage Originator Name | Role | Phone | + +------+ + | Macho Graf MD | PCP | | + +------+ + Encounter Details +--------+ + + + + | Date | Type | Department | Care Team | Description | +--------+ + + + + | 01/23/ | Ancillary | Registration [id number] | Andrew Jones MD | | | 2005 | Registratio | [address] [facility] | [address] | | | | [address] | [address] Mailcode: [id number] | [place], [place] | | | | | [place], [place] | [address] | | | | | [address] | [phone] | | | | | [phone] | | | +--------+ + + + [...]
--- OUTSIDE RECORDS SUMMARY | ~2019-11-12 | XMS | Encounter Summary ---
Demographics + + + | Address | [address] | | | [place] [address] | + + + | Home Phone | | + + + | Preferred Language | Unknown | + + + | Marital Status | | + + + | Samaritan Affiliation | Unknown | + + + [...] Team Providers + +------+ + | Care Entry Level Truck Driver Name | Role | Phone | + [...] as of this encounter Progress Notes Interface, Generating Station Mechanic In - 02/14/2006 2:09 AM PST [id number] 02/12/2006 02/12/2006 [id number] [place] [address] [place] [address] or February 13, 2006 Juaquin Maguire MD [address] [place] [address]., [address] [place] [address] RE: HALI REYNOLDS MR #: [id number] Dear Dr. Maguire, Dr. Andrew Jones and [...] Topamax. She was recently seen by an afternoon nanny, and prescribed a new pair of glasses, [...] vibration, pin prick, and position. Coordination - Nzlshd-xk-nfzh testing did not reveal any dysmetria. Fine [...] Karina Michelle M.D. Andrew Jones M.D. / [id number] / [id number] / [id number] / cc: Macho Graf MD [address] [place] [address] Atul Pepper MD [address] [place] [address] Garry Ojeda MD [address] [place] [address] Jacques sweeney [address] [place] [id number] documented i n this encounter Plan of Treatment Not on filedocumented as of this encounter Visit Diagnoses Not on filedocumented in this encounter
--- OUTSIDE RECORDS SUMMARY | ~2019-11-12 | XMS | Encounter Summary ---
Demographics + + + | Address | [address] | | | [place] [address] | + + + | Home Phone | | + + + | Preferred Language | Unknown | + + + | Marital Status | | + + + | Mandaen Affiliation | Unknown | + + + [...] Team Providers + +------+ + | Care Telegraph Lineman Name | Role | Phone | + +------+ + | Macho Graf MD | PCP | | + +------+ + Encounter Details +--------+ + + + + | Date | Type | Department | Care Team | Description | +--------+ + + + + | 12/26/ | Telephone | Neurology at | Alexey Read MD | | | 2009 | | [facility] & | | | | | | [address] | | | | | [address] Mailcode: | | | | | | [facility] | | | | | | Health and Healing, | | | | | | [facility] | | | | | | [place], [place] | | | | | | [address] | | | | | | [phone] | | | +--------+ + + + [...]
--- OUTSIDE RECORDS SUMMARY | ~2019-11-12 | XMS | Encounter Summary ---
Demographics + + + | Address | [address] | | | [place] [address] | + + + | Home Phone | | + + + | Preferred Language | Unknown | + + + | Marital Status | | + + + | Anabaptism Affiliation | Unknown | + + + | Race | White | + + + | Ethnic Group | Not or | + + + Author + + + | Author | [facility] | + + + | Organization | [facility] | + + + | Address | Unknown | + + + | Phone | Unavailable | + + + Support + + +---------+ + | Name | Relationship | Address | Phone | + + +---------+ + | Kourtney Galeas | ECON | Unknown | | + + +---------+ + Care Team Providers + +------+ + | Care Mainspring Strip Gauger Name | Role | Phone | + +------+ + | Macho Graf MD | PCP | | + +------+ + Encounter Details +--------+ + + + + | Date | Type | Department | Care Team | Description | +--------+ + + + + | 10/23/ | Telephone | Neurology at | Karina Michelle MD | | | 2005 | | [facility] & | [address] | | | | | [address] | | | | | [address] Mailcode: | [place] [address] | | | | | [address] | [phone] | | | | | Health and Healing, | | | | | | | | | | | | Floor [place], [place] | | | | | | [address] | | | | | | [phone] | | | +--------+ + + + [...]
--- OUTSIDE RECORDS SUMMARY | ~2019-11-12 | XMS | Encounter Summary ---
Demographics + + + | Address | [address] | | | [place] [address] | + + + | Home Phone | | + + + | Preferred Language | Unknown | + + + | Marital Status | | + + + | Anabaptism Affiliation | Unknown | + + + | Race | White | + + + | Ethnic Group | Not or | + + + Author + + + | Author | [facility] | + + + | Organization | [facility] | + + + | Address | Unknown | + + + | Phone | Unavailable | + + + Support + + +---------+ + | Name | Relationship | Address | Phone | + + +---------+ + | Kourtney Galeas | ECON | Unknown | | + + +---------+ + Care Team Providers + +------+ + | Care Chip Loft Worker Name | Role | Phone | + +------+ + | Macho Graf MD | PCP | | + +------+ + Encounter Details +--------+ + + + + | Date | Type | Department | Care Team | Description | +--------+ + + + + | 11/14/ | District Leader | Neurology at | Alexey Read MD | Unspecified myalgia | | 2008 | | [facility] & | | and myositis | | | | [address] | | (Primary Dx) | | | | [address] Mailcode: | | | | | | [facility] | | | | | | Health and Healing, | | | | | | Building | | | | | | Floor [place], [place] | | | | | | [address] | | | | | | [phone] | | | +--------+ + + + [...] + | Diagnosis | + + | Myalgia and myositis, unspecified - Primary Mylagia and myositis, unspecified | + + documented in this encounter"
--- OUTSIDE RECORDS SUMMARY | ~2019-11-12 | XMS | Encounter Summary ---
Demographics + + + | Address | [address] | | | [place] [address] | + + + | Home Phone | | + + + | Preferred Language | Unknown | + + + | Marital Status | | + + + | Evangelical Affiliation | Unknown | + + + | Race | White | + + + | Ethnic Group | Not or | + + + Author + + + | Author | [facility] | + + + | Organization | [facility] | + + + | Address | Unknown | + + + | Phone | Unavailable | + + + Support + + +---------+ + | Name | Relationship | Address | Phone | + + +---------+ + | Kourtney Galeas | ECON | Unknown | | + + +---------+ + Care Team Providers + +------+ + | Care Bulb Brander Name | Role | Phone | + +------+ + | Macho Graf MD | PCP | | + +------+ + Encounter Details +--------+ + + + + | Date | Type | Department | Care Team | Description | +--------+ + + + + | 11/10/ | Documentati | Neurology at | Alexey Read MD | | | 2008 | on | [facility] & | | | | | | [address]aling [address] | | | | | | [address] Mailcode: | | | | | | [facility] | | | | | | Health and Healing, | | | | | | | | | | | | [place], [place] | | | | | | [address] | | | | | | [phone] | | | +--------+ + + + [...]
--- OUTSIDE RECORDS SUMMARY | ~2019-11-12 | XMS | Encounter Summary ---
Demographics + + + | Address | [address] | | | [place] [address] | + + + | Home Phone | | + + + | Preferred Language | Unknown | + + + | Marital Status | | + + + | Confucianism Affiliation | Unknown | + + + | Race | White | + + + | Ethnic Group | Not or | + + + Author + + + | Author | [facility] | + + + | Organization | [facility] | + + + | Address | Unknown | + + + | Phone | Unavailable | + + + Support + + +---------+ + | Name | Relationship | Address | Phone | + + +---------+ + | Kourtney Galeas | ECON | Unknown | | + + +---------+ + Care Team Providers + +------+ + | Care Belt Notcher Name | Role | Phone | + [...] | 2005 | Registratio | [address] [facility] | [address] | | | | [address] | [address] Mail[address]: [id number] | [place], [place] | | | | | [place], [place] | [address] | | | | | [address] | [phone] | | | | | [phone] | | | +--------+ + + + [...]
--- OUTSIDE RECORDS SUMMARY | ~2019-11-12 | XMS | Encounter Summary ---
Demographics + + + | Address | [address] | | | [place] [address] | + + + | Home Phone | | + + + | Preferred Language | Unknown | + + + | Marital Status | | + + + | Episcopal Affiliation | Unknown | + + + | Race | Unknown | + + + | Ethnic Group | Unknown | + + + Author + + + | Author | [facility] | | | and [place] | + + + | Organization | [facility] | | | and [place] | + + + | Address | Unknown | + + + | Phone | Unavailable | + + + Care Team Providers + +------+ + | Care Regional Clinical Research Associate Name | Role | Phone | + +------+ + PCP | Unavailable | + +------+ + Encounter Details +--------+ + + + + | Date | Type | Department | Care Team | Description | +--------+ + + + + | 01/25/ | Hospital | [facility] | Unknown, | | | 1991 | Encounter | MED CTR XRAY [address] | MD [place] | | | | | [place] | | | | | | [place] [address] | (Fax) | | | | | [phone] | | | +--------+ + + + [...]
--- OUTSIDE RECORDS SUMMARY | ~2019-11-12 | XMS | Clinical Summary ---
Demographics + + + | Address | [address] | | | [place] [address] | + + + | Home Phone | | + + + | Preferred Language | Unknown | + + + | Marital Status | | + + + | Oriental Orthodox Affiliation | 1073 | + + + | Race | Unknown | + + + | Ethnic Group | Unknown | + + + Author + + + | Author | [facility] (Historical as of | | | 07-11-19) | + + + | Organization | [facility] (Historical as of | | | 07-11-19) | + + + | Address | Unknown | + + + | Phone | Unavailable | + + + Support + + + + + | Name | Relationship | Address | Phone | + + + + + | Paul Reynolds | ECON | [address] | | | | | [place] | | | | | [address] | | + + + + + Care Team Providers + +------+ + | Care Electric Meter Repairer Apprentice Name | Role | Phone | + +------+ + | Macho Graf MD | PP | | + +------+ + Allergies Not on File Current Medications Not on file Active Problems Not on file Social History + +-------+ +--------+------+ | Tobacco [...] on file | | + + + Plan of Treatment + + + + + | Health Maintenance | Due Date | Last Done | Comments | + + + + + | Vaccine: | | | | | Dtap/Tdap/Td (1 - | 8 | | | | Tdap) | | | | + + + + + | Cervical Cancer | | | | | Screening (Pap) | 9 | | | + + + + + | Vaccine: Zoster (1 | | | | | of 2) | 9 | | | + + + + + | Vaccine: Influenza | | | | | (#1) | 9 | | | + + + + + Results Not on filefrom Last 3 Months"
--- OUTSIDE RECORDS SUMMARY | ~2019-11-12 | XMS | Encounter Summary ---
Demographics + + + | Address | [address] | | | [place] [address] | + + + | Home Phone | | + + + | Preferred Language | Unknown | + + + | Marital Status | | + + + | Pentecostal Affiliation | Unknown | + + + | Race | White | + + + | Ethnic Group | Not or | + + + Author + + + | Author | [facility] | + + + | Organization | [facility] | + + + | Address | Unknown | + + + | Phone | Unavailable | + + + Support + + +---------+ + | Name | Relationship | Address | Phone | + + +---------+ + | Kourtney Galeas | ECON | Unknown | | + + +---------+ + Care Team Providers + +------+ + | Care Lime Burner Name | Role | Phone | + +------+ + | Macho Graf MD | PCP | | + +------+ + Encounter Details +--------+ + + + + | Date | Type | Department | Care Team | Description | +--------+ + + + + | 06/11/ | Ancillary | Registration [id number] | Andrew Jones MD | | | 2005 | Registratio | [facility] | [address] | | | | [address] | [address] Mailcode: [address] | [place], [place] | | | | | [place], [place] | [address] | | | | | [address] | [phone] | | | | | [phone] | | | +--------+ + + + [...]
--- OUTSIDE RECORDS SUMMARY | ~2019-11-12 | XMS | Clinical Summary ---
Demographics + + + | Address | [address] | | | [place] [address] | + + + | Home Phone | | + + + | Preferred Language | Unknown | + + + | Marital Status | | + + + | Denominational Affiliation | Unknown | + + + | Race | Unknown | + + + | Ethnic Group | Unknown | + + + Author + + + | Author | [facility] | | | and [place] | + + + | Organization | [facility] | | | and [place] | + + + | Address | Unknown | + + + | Phone | Unavailable | + + + Care Team Providers + +------+ + | Care Roofing Subcontractor Name | Role | Phone | + +------+ + | Macho Graf | PCP | | | MD | | | + +------+ + Allergies Not on File Medications Not on file Active Problems Not [...] recent travel history available. | + + Last Filed Vital Signs Not on file Plan of Treatment + + + + + | Health Maintenance | Due Date | Last Done | Comments | + + + + + | Vaccine: | | | | | Dtap/Tdap/Td (1 - | 0 | | | | Tdap) | | | | + + + + + | Cervical Cancer | | | | | Screening (Pap) | 9 | | | + + + + + | Breast Cancer | | | | | Screening | 4 | | | + + + + + | Vaccine: Zoster (1 | | | | | of 2) | 9 | | | + + + + + | Vaccine: Influenza | | | | | (#1) | 9 | | | + + + + + Results Not on filefrom Last 3 Months"
--- OUTSIDE RECORDS SUMMARY | ~2019-11-12 | XMS | Encounter Summary ---
Demographics + + + | Address | [address] | | | [place] [address] | + + + | Home Phone | | + + + | Preferred Language | Unknown | + + + | Marital Status | | + + + | Restorationism Affiliation | Unknown | + + + | Race | White | + + + | Ethnic Group | Not or | + + + Author + + + | Author | [facility] | + + + | Organization | [facility] | + + + | Address | Unknown | + + + | Phone | Unavailable | + + + Support + + +---------+ + | Name | Relationship | Address | Phone | + + +---------+ + | Kourtney Galeas | ECON | Unknown | | + + +---------+ + Care Team Providers + +------+ + | Care Child Nutrition Director Name | Role | Phone | + +------+ + | Macho Graf MD | PCP | | + +------+ + Encounter Details +--------+ + + + + | Date | Type | Department | Care Team | Description | +--------+ + + + + | 02/14/ | Ancillary | Registration [id number] | | | | 2005 | Registrjessicao | [address] [address] | | | | | n | [address] Mailcode: [address] | | | | | | [place], [place] | | | | | | [address] | | | | | | [phone] | | | +--------+ + + + [...]
--- OUTSIDE RECORDS SUMMARY | ~2019-11-12 | XMS | Encounter Summary ---
Demographics + + + | Address | [address] | | | [place] [address] | + + + | Home Phone | | + + + | Preferred Language | Unknown | + + + | Marital Status | | + + + | Sikhism Affiliation | Unknown | + + + | Race | White | + + + | Ethnic Group | Not or | + + + Author + + + | Author | [facility] | + + + | Organization | [facility] | + + + | Address | Unknown | + + + | Phone | Unavailable | + + + Support + + +---------+ + | Name | Relationship | Address | Phone | + + +---------+ + | Kourtney Galeas | ECON | Unknown | | + + +---------+ + Care Team Providers + +------+ + | Care Hearing Instrument Specialist Name | Role | Phone | + +------+ + | Macho Graf MD | PCP | | + +------+ + Encounter Details +--------+ + + + + | Date | Type | Department | Care Team | Description | +--------+ + + + + | 10/19/ | Learning Support Services Director | Neurology at | Alexey Read MD | Pre-procedure lab | | 2008 | | [facility] & | | exam (Primary Dx) | | | | [address] | | | | | | [address] Mailcode: | | | | | | [facility] | | | | | | Health and Healing, | | | | | | Building | | | | | | Floor [place], [place] | | | | | | [address] | | | | | | [phone] | | | +--------+ + + + [...] + | Diagnosis | + + | Pre-procedure lab exam - Primary Pre-procedural laboratory examination | + + documented in this encounter"
--- OUTSIDE RECORDS SUMMARY | ~2019-11-12 | XMS | Encounter Summary ---
Demographics + + + | Address | [address] | | | [place] [address] | + + + | Home Phone | | + + + | Preferred Language | Unknown | + + + | Marital Status | | + + + | Mormon Affiliation | Unknown | + + + | Race | White | + + + | Ethnic Group | Not or | + + + Author + + + | Author | [facility] | + + + | Organization | [facility] | + + + | Address | Unknown | + + + | Phone | Unavailable | + + + Support + + +---------+ + | Name | Relationship | Address | Phone | + + +---------+ + | Kourtney Galeas | ECON | Unknown | | + + +---------+ + Care Team Providers + +------+ + | Care Clinical Operations Manager Name | Role | Phone | + +------+ + | Macho Graf MD | PCP | | + +------+ + Encounter Details +--------+ + + + + | Date | Type | Department | Care Team | Description | +--------+ + + + + | 12/07/ | Documentati | Neurology at | Alexey eRad MD | | | 2009 | on | [facility] & | | | | | | [address] | | | | | | [address] Mailcode: | | | | | | [facility] | | | | | | Health and Healing, | | | | | | | | | | | | [place], [place] | | | | | | [address] | | | | | | [phone] | | | +--------+ + + + [...]
--- OUTSIDE RECORDS SUMMARY | ~2019-11-12 | XMS | Encounter Summary ---
Demographics + + + | Address | [address] | | | [place] [address] | + + + | Home Phone | | + + + | Preferred Language | Unknown | + + + | Marital Status | | + + + | Hindu Affiliation | Unknown | + + + | Race | Unknown | + + + | Ethnic Group | Unknown | + + + Author + + + | Author | [facility] | | | and [place] | + + + | Organization | [facility] | | | and [place] | + + + | Address | Unknown | + + + | Phone | Unavailable | + + + Care Team Providers + +------+ + | Care Hem Inspector Name | Role | Phone | + +------+ + PCP | Unavailable | + +------+ + Encounter Details +--------+ + + + + | Date | Type | Department | Care Team | Description | +--------+ + + + + | 07/26/ | Hospital | [facility] | [facility], | | | 2010 | Encounter | CONVERSION [address] | [address] | | | | | [address] | [place] | | | | | [place], [place] | [place] [address] | | | | | [address] | [phone] | | | | | [phone] | | | +--------+ + + + [...] | + +--------+ + + + | MRI BRAIN WO | Routin | 07/26/2011 | | Results for this | | CONTRAST ANGIOGRAM | e | 9:34 AM | | procedure are in the | | HEAD WO CONTRAST | | PDT | | results section. | + +--------+ + + + documented in this encounter Results MRI Brain Wo MRA Head Wo (07/26/2011 9:34 AM PDT) + + | Specimen | + + | | + + + + + | Narrative | Performed At | + + + | [facility] [address] Ph: | | | Patient Name: RUCHI REYNOLDS Date of : | | | 1970 Medical Record: [id number] Account: [id number] | | | Exam Date/Time: 07/26/2011 09:15 Ordering | | | Physician: HUMBLE DOMINGO Order Detail: [id number] Exam | | | Description: MRI BRAIN AND MRA HEAD UN | | | | | | RUCHI REYNOLDS MRI BRAIN AND MRA HEAD UN 07/26/2011 9:15 AM | | | HISTORY: 41 years. Female. Migraines headaches. TECHNIQUE: | | | Imaging was performed on a 1.5 Lizeth MRI system. Multiplanar | | | sequences according to a standard department protocol were acquired | | | without contrast. Noncontrast [id number] MRA was acquired. | | | Multiplanar MIP reconstructions were performed. COMPARISON: | | | 07/09/2010. FINDINGS: The brain parenchyma demonstrates normal | | | architectural features and signal intensity on all sequences. The | | | ventricles, cisterns and sulci are normal in size and configuration. | | | No extraaxial fluid collections are noted. The midline structures | | | including the corpus callosum, milo, cerebellar vermis and pituitary | | | are normal. No masses are seen in the region of the | | | cerebellopontine angles or internal auditory canals. The orbits and | | | their contents are normal. Mild increased T2 signal seen within the | | | superior aspect of the frontal sinus that is stable. No fluid seen | | | in the mastoids. The osseous structures of the calvaria and upper | | | cervical spine demonstrate normal bone marrow signal intensity. The | | | soft tissues of the oropharynx and upper neck appear normal on the | | | sagittal sequences. The intracranial arteries demonstrate normal | | | flow voids on the T2 sequence. No large aneurysm is noted. The | | | dural venous sinuses also demonstrate normal flow-voids. MRA | | | There is a left dominant vertebral artery. origin of the left | | | posterior cerebral artery. Suggestion of a small patent right | | | posterior communicating artery. Patent anterior communicating artery. | | | No focal stenosis, dissection, or aneurysm in the anterior or | | | posterior circulation. IMPRESSION: 1. Mild chronic frontal | | | sinus disease, otherwise unremarkable MRI of the brain. 2. | | | Anatomic variation of the [place] of [place]. No stenosis, | | | occlusion, aneurysm or vasculitis noted. | | + + + + + | Procedure Note | + + | Anderson, Rad Conversion - 07/18/2019 4:41 PM PDT | | [facility] | | [facility] [address] | | | | | | Patient Name: RUCHI REYNOLDS | | Date of : 1970 | | Medical Record: [id number] | | Account: [id number] | | | | | | Exam Date/Time: 07/26/2011 09:15 | | Ordering Physician: HUMBLE DOMINGO | | Order Detail: [id number] | | Exam Description: MRI BRAIN AND MRA HEAD UN | | | | RUCHI REYNOLDS | | MRI BRAIN AND MRA HEAD UN | | 07/26/2011 9:15 AM | | | | HISTORY: | | 41 years. Female. Migraines headaches. | | | | TECHNIQUE: | | Imaging was performed on a 1.5 Lizeth MRI system. Multiplanar sequences | | according to a standard department protocol were acquired without contrast. | | Noncontrast [id number] MRA was acquired. Multiplanar MIP | | reconstructions were performed. | | | | COMPARISON: | | 07/09/2010. | | | | FINDINGS: | | The brain parenchyma demonstrates normal architectural features and signal | | intensity on all sequences. The ventricles, cisterns and sulci are normal | | in size and configuration. No extraaxial fluid collections are noted. The | | midline structures including the corpus callosum, milo, cerebellar vermis | | and pituitary are normal. No masses are seen in the region of the | | cerebellopontine angles or internal auditory canals. The orbits and their | | contents are normal. Mild increased T2 signal seen within the superior | | aspect of the frontal sinus that is stable. No fluid seen in the mastoids. | | The osseous structures of the calvaria and upper cervical spine demonstrate | | normal bone marrow signal intensity. The soft tissues of the oropharynx | | and upper neck appear normal on the sagittal sequences. The intracranial | | arteries demonstrate normal flow voids on the T2 sequence. No large | | aneurysm is noted. The dural venous sinuses also demonstrate normal | | flow-voids. | | | | | | MRA | | There is a left dominant vertebral artery. origin of the left | | posterior cerebral artery. Suggestion of a small patent right posterior | | communicating artery. Patent anterior communicating artery. No focal | | stenosis, dissection, or aneurysm in the anterior or posterior circulation. | | | | | | IMPRESSION: | | 1. Mild chronic frontal sinus disease, otherwise unremarkable MRI of | | the brain. | | 2. Anatomic variation of the [place] of [place]. No stenosis, occlusion, | | aneurysm or vasculitis noted. | | | | | + + documented in this encounter Visit Diagnoses Not on filedocumented in this encounter"
--- OUTSIDE RECORDS SUMMARY | ~2019-11-12 | XMS | Encounter Summary ---
Demographics + + + | Address | [address] | | | [place] [address] | + + + | Home Phone | | + + + | Preferred Language | Unknown | + + + | Marital Status | | + + + | Jehovah'S Witness Affiliation | Unknown | + + + | Race | White | + + + | Ethnic Group | Not or | + + + Author + + + | Author | [facility] | + + + | Organization | [facility] | + + + | Address | Unknown | + + + | Phone | Unavailable | + + + Support + + +---------+ + | Name | Relationship | Address | Phone | + + +---------+ + | Kourtney Galeas | ECON | Unknown | | + + +---------+ + Care Team Providers + +------+ + | Care Color Maker Formulator Name | Role | Phone | + +------+ + | Macho Graf MD | PCP | | + +------+ + Encounter Details +--------+ + + + + | Date | Type | Department | Care Team | Description | +--------+ + + + + | 12/26/ | Telephone | Neurology at | Alexey Read MD | | | 2009 | | [facility] & | | | | | | [address] | | | | | | [address] Mailcode: | | | | | | [facility] | | | | | | Health and Healing, | | | | | | [facility] | | | | | | [place], [place] | | | | | | [address] | | | | | | [phone] | | | +--------+ + + + [...]
--- OUTSIDE RECORDS SUMMARY | ~2019-11-12 | XMS | Encounter Summary ---
Demographics + + + | Address | [address] | | | [place] [address] | + + + | Home Phone | | + + + | Preferred Language | Unknown | + + + | Marital Status | | + + + | Oriental Orthodox Affiliation | Unknown | + + + | Race | White | + + + | Ethnic Group | Not or | + + + Author + + + | Author | [facility] | + + + | Organization | [facility] | + + + | Address | Unknown | + + + | Phone | Unavailable | + + + Support + + +---------+ + | Name | Relationship | Address | Phone | + + +---------+ + | Kourtney Galeas | ECON | Unknown | | + + +---------+ + Care Team Providers + +------+ + | Care Senior Assistant Manager Name | Role | Phone | + +------+ + | Macho Graf MD | PCP | | + +------+ + Encounter Details +--------+ + + + + | Date | Type | Department | Care Team | Description | +--------+ + + + + | 11/14/ | Fire Fighting Equipment Specialist | Neurology at | Alexey Read MD | Unspecified myalgia | | 2008 | | [facility] & | | and myositis | | | | [address] | | (Primary Dx) | | | | [address] Mailcode: | | | | | | [facility] | | | | | | Health and Healing, | | | | | | Building | | | | | | Floor [place], [place] | | | | | | [address] | | | | | | [phone] | | | +--------+ + + + [...]
--- OUTSIDE RECORDS SUMMARY | ~2019-11-12 | XMS | Encounter Summary ---
Demographics + + + | Address | [address] | | | [place] [address] | + + + | Home Phone | | + + + | Preferred Language | Unknown | + + + | Marital Status | | + + + | Cheondoism Affiliation | Unknown | + + + [...] Team Providers + +------+ + | Care Management Associate Name | Role | Phone | [...] as of this encounter Progress Notes Interface, Rental Clerk Tool And Equipment In - 02/14/2006 2:09 AM PST [id number] 02/12/2006 02/12/2006 [id number] GAIL [facility] [address] [place] [address] or February 12, 2006 Juaquin Maguire MD [address] [place] [address], [address] [place] [address] RE: HALI REYNOLDS MR #: [id number] Dear Dr. Maguire, I had the pleasure of seeing Hali Reynolds in [facility] today. As you know, Karina Michelle M.D. Andrew Jones M.D. / [id number] / [id number] / [id number] / cc: Macho Graf MD [address] [place] [address] Atul Pepper MD [address] [place] [address] Garry Ojeda MD [address] [place] [address] [address] documented i n this encounter Plan of Treatment Not on filedocumented as of this encounter Visit Diagnoses Not on filedocumented in this encounter"
--- OUTSIDE RECORDS SUMMARY | ~2019-11-12 | XMS | Encounter Summary ---
Demographics + + + | Address | [address] | | | [place] [address] | + + + | Home Phone | | + + + | Preferred Language | Unknown | + + + | Marital Status | | + + + | Methodist Affiliation | Unknown | + + + [...] Team Providers + +------+ + | Care Greeting Card Maker Name | Role | Phone | + +------+ + PCP | Unavailable | + +------+ + Encounter Details +--------+ + + + + | Date | Type | Department | Care Team | Description | +--------+ + + + + | 07/18/ | Results | | Other, Faculty | | | 2004 | Only | | [phone] | | +--------+ + + + + [...] | + +--------+ + + + | SURGICAL PATHOLOGY | Routin | 07/18/2005 | | Results for this | | | e | | | procedure are in the | | | | | | results section. | + +--------+ + + + documented in this encounter Results SURGICAL PATHOLOGY (07/18/2005) + + + + + + | Component | Value | Ref Range | Performed | Pathologist | | | | | At | Signature | + + + + + + | SURGICAL | THIS IS AN AMENDED | | [facility] | | | PATHOLOGY | REPORT SOURCE OF | | DEPARTMENT | | | | SPECIMEN:A Muscle | | OF | | | | Biopsy, MyopathySOURCE | | PATHOLOGY | | | | OF SPECIMEN:B Skin | | | | | | Biopsy Final Pathologic | | | | | | Diagnosis:This case is | | | | | | amended to report the | | | | | | results of a Dystrophin | | | | | | panel performedon | | | | | | specimen A. The | | | | | | diagnosis remains | | | | | | unchanged. A: Skeletal | | | | | | muscle, quadriceps, | | | | | | biopsy: - Sparse | | | | | | lymphocytic collections | | | | | | and rare degenerating | | | | | | andregenerating fibers | | | | | | concerning for | | | | | | inflammatory myositis | | | | | | (see Comment) B: Skin, | | | | | | left thigh, biopsy: | | | | | | - No diagnostic | | | | | | abnormalities. Amendment | | | | | | Comment: The | | | | | | currently available | | | | | | dystrophin panel | | | | | | ofimmunoperoxidase | | | | | | stains is performed | | | | | | using the following | | | | | | epitopes:Spectrin | | | | | | control, Dystrophin (N | | | | | | terminal, C terminal, | | | | | | and cas domain),alpha, | | | | | | beta, delta, and gamma- | | | | | | Sarcoglycans, | | | | | | beta-Dystroglycan, | | | | | | Utrophin,Merosin, | | | | | | Emerin, Caveolin-3, and | | | | | | Dysferlin. The Spectrin | | | | | | positive controlshows | | | | | | appropriate staining of | | | | | | the patient's muscle | | | | | | tissue and the | | | | | | controltissue. Changes | | | | | | in the three antibodies | | | | | | to dystrophin | | | | | | (Dystrophin I, II,and | | | | | | III) show normal | | | | | | subsarcolemmal staining. | | | | | | Stains for alpha-, | | | | | | beta-,gamma-, and | | | | | | delta-sarcoglycan show | | | | | | normal membranous | | | | | | staining. The stainfor | | | | | | beta-dystroglycan, | | | | | | Merosin, Caveolin-3, and | | | | | | Dysferlin also show | | | | | | anormal pattern of | | | | | | membranous staining. | | | | | | The Emerin stain shows | | | | | | normalnuclear staining. | | | | | | The Utrophin staining | | | | | | shows normal vascular | | | | | | staining,and does not | | | | | | demonstrate an increased | | | | | | amount of this protein | | | | | | in the musclefibers. | | | | | | The negative control | | | | | | is appropriate. (Analyte | | | | | | specific reagents are | | | | | | used in many laboratory | | | | | | tests necessary | | | | | | [facility] | | | | | | and generally do not | | | | | | require FDA approval. | | | | | | This testwas developed | | | | | | and its performance | | | | | | characteristics | | | | | | determined by | | | | | | [facility]. It has | | | | | | not been cleared or | | | | | | approved by the U.S. | | | | | | Food and | | | | | | DrugAdministration.) | | | | | | Comment: The small | | | | | | numbers of endomysial | | | | | | and perivascular | | | | | | lymphocytes arenot | | | | | | associated with reactive | | | | | | changes in their | | | | | | immediate vicinity and | | | | | | are ofsuch small numbers | | | | | | that they are not | | | | | | sufficient for a | | | | | | designation as | | | | | | aninflammatory myopathy. | | | | | | Nonetheless, there | | | | | | are a small number | | | | | | ofdegenerating and | | | | | | regenerating fibers | | | | | | present that further | | | | | | suggest amyopathic | | | | | | process. | | | | | | Perifascicular atrophy | | | | | | indicative of | | | | | | dermatomyositis isnot | | | | | | seen and no evidence of | | | | | | dermatomyositis is seen | | | | | | on the skin biopsy. | | | | | | Noevidence of a | | | | | | neurogenic process is | | | | | | identified. Deeper | | | | | | level sections failto | | | | | | identify any additional | | | | | | abnormalities. Amendment | | | | | | reviewed by:Arnaud | | | | | | Daja Gan | | | | | | /Neuropathology FellowS. | | | | | | Demetrius Fuentes M.D. | | | | | | /NeuropathologistT:07/11 | | | | | | / Case reviewed | | | | | | by:Gregory Piper M.D. | | | | | | / NeuropathologistPart | | | | | | A also seen by: S. | | | | | | Demetrius Fuentes M.D. / | | | | | | NeuropathologistPart B | | | | | | also seen by: Live. | | | | | | Daja Amato / | | | | | | DermatopathologistT: | | | | | | 04/29:lab I have reviewed | | | | | | all diagnostic slides | | | | | | and have edited the | | | | | | gross and/ormicroscopic | | | | | | portion of this report | | | | | | as part of my pathologic | | | | | | assessment andfinal | | | | | | diagnosis. Clinical | | | | | | History:The patient is a | | | | | | 34-year-old female with | | | | | | multiple rheumatologic | | | | | | complaintsas well, | | | | | | generalized muscle | | | | | | fatigue, pain, and | | | | | | stiffness. She | | | | | | hasexperienced rash | | | | | | involving the facial | | | | | | areas, legs, and back; | | | | | | this has notbeen well | | | | | | characterized. | | | | | | Clinicians suspect | | | | | | possible | | | | | | dermatomyositis. Gross | | | | | | Description:The specimen | | | | | | is received from | | | | | | [facility] | [facility] [place] [facility] [place] and consists of | | | | | | two parts. Specimen A: | | | | | | A fragment ofskeletal | | | | | | beefy red tissue that | | | | | | measures approximately | | | | | | 2.0 x 1.5 x 1.0 cm | | | | | | ingreatest dimension. | | | | | | Specimen B: The | | | | | | other consists of a | | | | | | fragment of skinthat | | | | | | appears to be an ellipse | | | | | | measuring approximately | | | | | | 2.5 x 0.6 x 0.6 cm.The | | | | | | skin is placed in | | | | | | formalin while the | | | | | | skeletal muscle is | | | | | | handled in theroutine | | | | | | fashion. Microscopic | | | | | | Description:Frozen | | | | | | sections are stained | | | | | | with hematoxylin and | | | | | | eosin, a | | | | | | modifiedtrichrome | | | | | | method, and for | | | | | | cytochrome oxidase, | | | | | | NADH, succinic | | | | | | dehydrogenaseand ATPase | | | | | | (pH 4.5 and 9.4). The | | | | | | hematoxylin and | | | | | | eosin-stained sections | | | | | | of the | | | | | | formalin-fixed,paraffin- | | | | | | embedded, as well as the | | | | | | snap frozen material | | | | | | generally showssimilar | | | | | | features and are | | | | | | described together. | | | | | | There are | | | | | | minimal,nonspecific | | | | | | changes consisting | | | | | | principally of a | | | | | | variation in fiber | | | | | | sizeswith rare atrophic | | | | | | fibers of approximately | | | | | | 30 microns in diameter | | | | | | with theremaining fibers | | | | | | typically of 80-90 | | | | | | microns in diameter. | | | | | | Deeper levelsections | | | | | | of the frozen material | | | | | | reveals rare small | | | | | | endomysial collectionsof | | | | | | lymphocytes without | | | | | | degenerative changes in | | | | | | the adjacent fibers. | | | | | | Inaddition, there is a | | | | | | sparse perimysial | | | | | | perivascular collection | | | | | | oflymphocytes, again not | | | | | | associated with | | | | | | degenerative changes or | | | | | | evidence ofvasculitis. | | | | | | These collections are | | | | | | of unclear significance. | | | | | | The frozenmaterial | | | | | | additionally shows a | | | | | | rare degenerating fiber | | | | | | as well as very | | | | | | smallnumbers of | | | | | | regenerating fibers. | | | | | | Inflammation is not | | | | | | associated with | | | | | | theseparticular fibers. | | | | | | The rare atrophic | | | | | | fibers do not show | | | | | | evidence ofgrouping, and | | | | | | there is no | | | | | | perivesicular atrophy. | | | | | | There is no increase | | | | | | incentral nuclei and no | | | | | | subsarcolemmal nuclear | | | | | | collections are | | | | | | present.There is no | | | | | | significant fibrosis. | | | | | | There is no evidence | | | | | | of | | | | | | epimysialinflammation. | | | | | | Similar features are | | | | | | present on the trichrome | | | | | | stain, | | | | | | whichadditionally shows | | | | | | no evidence of ragged | | | | | | red fibers, rimmed | | | | | | vacuoles,nemaline rods, | | | | | | or intranuclear | | | | | | inclusions. The SDH | | | | | | stain shows a | | | | | | normalnumber and | | | | | | distribution of | | | | | | mitochondria. The NADH | | | | | | stain shows no | | | | | | evidenceof central | | | | | | cores, targets, or | | | | | | moth-eaten fibers. No | | | | | | cytochrome | | | | | | oxidasedeficient fibers | | | | | | are identified. ATPase | | | | | | stains show a type | | | | | | I:type II fiberratio of | | | | | | approximately 1-2:1. | | | | | | There is no evidence | | | | | | of | | | | | | neurogenicrearrangement. | | | | | | The acid phosphatase | | | | | | stain shows mild | | | | | | staining of | | | | | | theregenerative fibers, | | | | | | but there is no | | | | | | staining. Alkaline | | | | | | phosphatase showssparse | | | | | | staining with no | | | | | | significance. | | | | | | Immunoperoxidase stain | | | | | | for CD3 is performed on | | | | | | a portion of the | | | | | | skeletalmuscle reveals | | | | | | only a small collection | | | | | | of endomysial | | | | | | lymphocytes that arenot | | | | | | associated with | | | | | | degenerative changes. | | | | | | This collection is | | | | | | also ofunclear | | | | | | significance. (Analyte | | | | | | specific reagents are | | | | | | used in many laboratory | | | | | | tests necessary | | | | | | [facility] | | | | | | and generally do not | | | | | | require FDA approval. | | | | | | This testwas developed | | | | | | and its performance | | | | | | characteristics | | | | | | determined by | | | | | | [facility]. It | | | | | | has not been cleared or | | | | | | approved by the U.S. | | | | | | Food andDrug | | | | | | Administration.) | | | | | | Hematoxylin and | | | | | | eosin-stained sections | | | | | | of the portion of skin | | | | | | reveal nodiagnostic | | | | | | abnormalities. No | | | | | | inflammation or | | | | | | epidermal changes | | | | | | suggestiveof | | | | | | dermatomyositis are | | | | | | identified.Rendering | | | | | | Diagnostician: Gregory | | | | | | Feliz | | | | | | M.D.,Ph.D.PathologistEle | | | | | | ctronically Signed | | | | | | 08/03/2005Rendering | | | | | | Diagnostician: S. | | | | | | Demetrius Fuentes | | | | | | M.D.PathologistElectroni | | | | | | [place] Signed 07/15/2006 | | | | + + + + + + + + | Specimen | + + | | + + + + + | Narrative | Performed At | + + + | Ordered by Carla Nicole MD | [facility] | | | DEPARTMENT OF | | | PATHOLOGY | + + + + + + + + | Performing | Address | City/State/Zipcode | Phone Number | | Organization | | | | + + + + + | [facility] | [address] | [place] [address] | | | PATHOLOGY | [address] | | | + + + + + | [facility] | [address] | [place] [address] | | | PATHOLOGY | [address] | | | + + + + + documented in this encounter Visit Diagnoses Not on filedocumented in this encounter"
--- OUTSIDE RECORDS SUMMARY | ~2019-11-12 | XMS | Encounter Summary ---
Demographics + + + | Address | [address] | | | [place] [address] | + + + | Home Phone | | + + + | Preferred Language | Unknown | + + + | Marital Status | | + + + | Sikh Affiliation | Unknown | + + + | Race | White | + + + | Ethnic Group | Not or | + + + Author + + + | Author | [facility] | + + + | Organization | [facility] | + + + | Address | Unknown | + + + | Phone | Unavailable | + + + Support + + +---------+ + | Name | Relationship | Address | Phone | + + +---------+ + | Kourtney Galeas | ECON | Unknown | | + + +---------+ + Care Team Providers + +------+ + | Care Public Health Dietitian Name | Role | Phone | + +------+ + | Macoh Graf MD | PCP | | + +------+ + Encounter Details +--------+ + + + + | Date | Type | Department | Care Team | Description | +--------+ + + + + | 02/12/ | Ancillary | Registration [id number] | Andrew Jones MD | | | 2005 | Registratio | [facility] | [address] | | | | [address] | [address] Mailcode: [address] | [place], [place] | | | | | [place], [place] | [address] | | | | | [address] | [phone] | | | | | [phone] | | | +--------+ + + + [...]
--- OUTSIDE RECORDS SUMMARY | ~2019-11-12 | XMS | Encounter Summary ---
Demographics + + + | Address | [address] | | | [place] [address] | + + + | Home Phone | | + + + | Preferred Language | Unknown | + + + | Marital Status | | + + + | Gnosticism Affiliation | Unknown | + + + | Race | Unknown | + + + | Ethnic Group | Unknown | + + + Author + + + | Author | [facility] | | | and Abhishekana | + + + | Organization | [facility] | | | and Abhishekana | + + + | Address | Unknown | + + + | Phone | Unavailable | + + + Care Team Providers + +------+ + | Care Receiver Stocker Name | Role | Phone | + +------+ + PCP | Unavailable | + +------+ + Encounter Details +--------+ + + + + | Date | Type | Department | Care Team | Description | +--------+ + + + + | 01/25/ | Hospital | [facility] | Unknown, | | | 1991 | Encounter | MED CTR XRAY [address] | MD Eleonora | | | | | [place] | | | | | | [place] [id number] | (Fax) | | | | | [phone] | | | +--------+ + + + [...]
--- OUTSIDE RECORDS SUMMARY | ~2019-11-12 | XMS | Encounter Summary ---
Demographics + + + | Address | [address] | | | [place] [address] | + + + | Home Phone | | + + + | Preferred Language | Unknown | + + + | Marital Status | | + + + | Muslim Affiliation | Unknown | + + + | Race | White | + + + | Ethnic Group | Not or | + + + Author + + + | Author | [facility] | + + + | Organization | [facility] | + + + | Address | Unknown | + + + | Phone | Unavailable | + + + Support + + +---------+ + | Name | Relationship | Address | Phone | + + +---------+ + | Kourtney Galeas | ECON | Unknown | | + + +---------+ + Care Team Providers + +------+ + | Care Glass Pulverizer Equipment Operator Name | Role | Phone | + [...] | 2005 | Registratio | [facility] | [address] | | | | [address] | [address]: [address] | [place], [place] | | | | | [place], [place] | [address] | | | | | [address] | [phone] | | | | | [phone] | | | +--------+ + + + [...]
--- OUTSIDE RECORDS SUMMARY | ~2019-11-12 | XMS | Encounter Summary ---
Demographics + + + | Address | [address] | | | [place] [address] | + + + | Home Phone | | + + + | Preferred Language | Unknown | + + + | Marital Status | | + + + | Anabaptism Affiliation | Unknown | + + + | Race | White | + + + | Ethnic Group | Not or | + + + Author + + + | Author | [facility] | + + + | Organization | [facility] | + + + | Address | Unknown | + + + | Phone | Unavailable | + + + Support + + +---------+ + | Name | Relationship | Address | Phone | + + +---------+ + | Kourtney Galeas | ECON | Unknown | | + + +---------+ + Care Team Providers + +------+ + | Care Real Estate Legal Assistant Name | Role | Phone | + +------+ + | Macho Graf MD | PCP | | + +------+ + Encounter Details +--------+ + + + + | Date | Type | Department | Care Team | Description | +--------+ + + + + | 12/07/ | Documentati | Neurology at | Alexey Read MD | | | 2009 | on | [facility] & | | | | | | Healing [address] | | | | | | [address] Mailcode: | | | | | | [facility] | | | | | | Health and Healing, | | | | | | | | | | | | [place], [place] | | | | | | [address] | | | | | | [phone] | | | +--------+ + + + [...]
--- OUTSIDE RECORDS SUMMARY | ~2019-11-12 | XMS | Encounter Summary ---
Demographics + + + | Address | [address] | | | [place] [address] | + + + | Home Phone | | + + + | Preferred Language | Unknown | + + + | Marital Status | | + + + | Scientology Affiliation | Unknown | + + + | Race | White | + + + | Ethnic Group | Not or | + + + Author + + + | Author | [facility] | + + + | Organization | [facility] | + + + | Address | Unknown | + + + | Phone | Unavailable | + + + Support + + +---------+ + | Name | Relationship | Address | Phone | + + +---------+ + | Kourtney Galeas | ECON | Unknown | | + + +---------+ + Care Team Providers + +------+ + | Care Fell Cutter Name | Role | Phone | + +------+ + | Macho Graf MD | PCP | | + +------+ + Encounter Details +--------+------+ + + + | Date | Type | Department | Care Team | Description | +--------+------+ + + + | 10/27/ | Lab | Laboratory at [facility] | | Myalgia | | 2008 | | [address] | | | | | | [place], [place] | | | | | | [address] | | | | | | [phone] | | | +--------+------+ + + + Social History + +-------+ [...] | + +--------+ + + + | VITAMIN D, | Routin | 10/27/2009 | Myalgia | Results for this | | 25-HYDROXY, SERUM | e | 9:02 AM | | procedure are in the | | | | PST | | results section. | + +--------+ + + + | C-REACTIVE PROTEIN | Routin | 10/27/2009 | Myalgia | Results for this | | | e | 9:02 AM | | procedure are in the | | | | PST | | results section. | + +--------+ + + + | SEDIMENTATION RATE | Routin | 10/27/2009 | Myalgia | Results for this | | | e | 9:02 AM | | procedure are in the | | | | PST | | results section. | + +--------+ + + + | ALDOLASE, SERUM | Routin | 10/27/2009 | Myalgia | Results for this | | | e | 9:02 AM | | procedure are in the | | | | PST | | results section. | + +--------+ + + + | CK, PLASMA | Routin | 10/27/2009 | Myalgia | Results for this | | | e | 9:02 AM | | procedure are in the | | | | PST | | results section. | + +--------+ + + + documented in this encounter Results VITAMIN D, 25-HYDROXY, SERUM (10/27/2009 9:02 AM PST) + + + + + + | Component | Value | Ref Range | Performed | Pathologist | | | | | At | Signature | + + + + + + | VITAMIN D | 26 (L)Comment: TEST | 30 - 80 ng/mL | | | | 25 HYDROXY | INFORMATION: VITAMIN D, | | | | | | 25-HYDROXYThis assay | | | | | | accurately quantifies | | | | | | the sum of vitamin | | | | | | D3,25-hydroxy and | | | | | | vitamin D2, 25-hydroxy. | | | | | | Deficiency: Less than | | | | | | 20 ng/mL Insufficiency: | | | | | | 20-29 ng/mL Optimum | | | | | | Level: 30-80 ng/mL | | | | | | Possible Toxicity: | | | | | | Greater than 80 | | | | | | ng/mLPerformed by [facility] | | | | | | Jun,Tyron Caruso | | | | | | [address], [place] [address] | | | | | | [phone]. | | | | | | Charisse ignacio, | | | | | | , Lab. Director | | | | + + + + + + + + | Specimen | + + | Blood - Blood | + + + + + + + | Performing | Address | City/State/Zipcode | Phone Number | | Organization | | | | + + + + + | [facility] | [address] | [place], [place] | | | [facility] | | [address] | | + + + + + ALDOLASE, SERUM (10/27/2009 9:02 AM PST) + + + + + + | Component | Value | Ref Range | Performed | Pathologist | | | | | At | Signature | + + + + + + | ALDOLASE | 6.9Comment: Performed by | 1.5 - 8.1 U/L | | | | SERUM | [address] | | | | | | [address], [facility] [place] | | | | | | [address] | | | | | | [phone]. | | | | | | mateus, Charisse Victor, | | | | | | , Lab. Director New | | | | | | reference ranges | | | | | | effective 10/10/09. | | | | + + + + + + + + | Specimen | + + | Blood - Blood | + + + + + + + | Performing | Address | City/State/Zipcode | Phone Number | | Organization | | | | + + + + + | [facility] | [address] | [place], [place] | | | [facility] | | [address] | | + + + + + C-REACT PRTN (FOR INFLAMMATION) (10/27/2009 9:02 AM PST) + +-------+ + + + | Component | Value | Ref Range | Performed | Pathologist | | | | | At | Signature | + +-------+ + + + | C-REACTIVE | 0.5 | <0.6 mg/dl | [facility] | | | PROTEIN | | | REGIONAL | | | | | | LABORATORY | | + +-------+ + + + + + | Specimen | + + | Blood - Blood | + + + + + | Narrative | Performed At | + + + | Reference Range Change effective 12/21/08 | [facility] | | [facility] | REGIONAL | | [place] [address] [facility] | LABORATORY | | [place] [address] | | + + + + + + + + | Performing | Address | City/State/Zipcode | Phone Number | | Organization | | | | + + + + + | [facility] | [address] | [place] [address] | | | LABORATORY | | | | + + + + + SEDIMENTATION RATE (10/27/2009 9:02 AM PST) + +--------+ + + + | Component | Value | Ref Range | Performed | Pathologist | | | | | At | Signature | + +--------+ + + + | SEDIMENTATI | 30 (H) | <21 mm/hr | [facility] | | | ON RATE | | | DEPARTMENT | | | | | | OF | | | | | | PATHOLOGY | | + +--------+ + + + + + | Specimen | + + | Blood - Blood | + + + + + + + | Performing | Address | City/State/Zipcode | Phone Number | | Organization | | | | + + + + + | [facility] DEPARTMENT OF | [address] | [place] [address] | | | PATHOLOGY | [address] | | | + + + + + CK, PLASMA (10/27/2009 9:02 AM PST) + +-------+ + + + | Component | Value | Ref Range | Performed | Pathologist | | | | | At | Signature | + +-------+ + + + | CK | 181 | 38 - 234 U/L | [facility] | | | | | | DEPARTMENT | | | | | | OF | | | | | | PATHOLOGY | | + +-------+ + + + + + | Specimen | + + | Blood - Blood | + + + + + + + | Performing | Address | City/State/Zipcode | Phone Number | | Organization | | | | + + + + + | [facility] | [address] | [place] [address] | | | PATHOLOGY | [address] | | | + + + + + documented in this encounter Visit Diagnoses + + | Diagnosis | + + | Myalgia Mylagia and myositis, unspecified | + + documented in this encounter"
--- OUTSIDE RECORDS SUMMARY | ~2019-11-12 | XMS | Encounter Summary ---
Demographics + + + | Address | [address] | | | [place] [address] | + + + | Home Phone | | + + + | Preferred Language | Unknown | + + + | Marital Status | | + + + | Congregational Affiliation | Unknown | + + + | Race | White | + + + | Ethnic Group | Not or | + + + Author + + + | Author | [facility] | + + + | Organization | [facility] | + + + | Address | Unknown | + + + | Phone | Unavailable | + + + Support + + +---------+ + | Name | Relationship | Address | Phone | + + +---------+ + | Kourtney Galeas | ECON | Unknown | | + + +---------+ + Care Team Providers + +------+ + | Care Repair Manager Name | Role | Phone | + +------+ + | Macho Graf MD | PCP | | + +------+ + Encounter Details +--------+ + + + + | Date | Type | Department | Care Team | Description | +--------+ + + + + | 10/19/ | Night Shift Manager | Neurology at | Alexey Read MD | Pre-procedure lab | | 2008 | | [facility] & | | exam (Primary Dx) | | | | Healing [address] | | | | | | [address] Mailcode: | | | | | | [facility] | | | | | | Health and Healing, | | | | | | Building | | | | | | Floor [place], [place] | | | | | | [address] | | | | | | [phone] | | | +--------+ + + + [...]
--- OUTSIDE RECORDS SUMMARY | ~2019-11-12 | XMS | Encounter Summary ---
Demographics + + + | Address | [address] | | | [place] [address] | + + + | Home Phone | | + + + | Preferred Language | Unknown | + + + | Marital Status | | + + + | Gnosticism Affiliation | Unknown | + + + | Race | White | + + + | Ethnic Group | Not or | + + + Author + + + | Author | [facility] | + + + | Organization | [facility] | + + + | Address | Unknown | + + + | Phone | Unavailable | + + + Support + + +---------+ + | Name | Relationship | Address | Phone | + + +---------+ + | Kourtney Galeas | ECON | Unknown | | + + +---------+ + Care Team Providers + +------+ + | Care Geriatric Physical Therapist Name | Role | Phone | + +------+ + | Macho Graf MD | PCP | | + +------+ + Reason for Visit + + + | Reason | Comments | + + + | BX - Biopsy | | + + + Encounter Details +--------+ + + + + | Date | Type | Department | Care Team | Description | +--------+ + + + + | 10/28/ | Procedure | Neurology at | Alexey Read MD | BX - Biopsy | | 2008 | | [facility] & | | | | | | Healing [address] | | | | | | [place] Mailcode: | | | | | | [facility] | [facility], | | | | | | Building | | | | | | Floor [place], [place] | | | | | | [address] | | | | | | [phone] | | | +--------+ + + + [...] Pressure | 157/73 | 10/28/2009 8:01 AM | | | | | PST | | + + + + + | Pulse | 82 | 10/28/2009 8:01 AM | | | | | PST | | + + + + + | Temperature | - | - | | + + + + + | Respiratory Rate | 16 | 10/28/2009 8:01 AM | | | | | PST | | + + + + + | Oxygen Saturation | - | - | | + + + + + | Inhaled Oxygen | - | - | | | Concentration | | | | + + + + + | Weight | 112 kg (247 lb) | 10/28/2009 8:01 AM | | | | | PST | | + + + + + | Height | - | - | | + + + + + | Body Mass Index | 41.1 | 12/26/2006 10:31 AM | | | | | PST | | + + + + + documented in this encounter Patient Instructions Patient Instructions Paul Nayak MD - 10/28/2009 12:[address] [address] [email or web address] Muscle Biopsy Care Sheet Because of your symptoms you and your doctor have decided that a muscle biopsy will help diagnose the problem that you are experiencing. The biopsy was performed on a muscle either in your arm or in your leg depending on your symptoms. After having a muscle biopsy you will find the area covered with a sterile bandage wrapp ed with an elastic wrap. Prior to going to bed on the same day as the muscle biopsy, the leonardo stic wrap should be removed. The sterile bandage, however, must remain covering the incision site for 5 days. After 5 days the sterile bandage may be removed and the incision need not be covered. You will see small strips of tape covering the incision; these should NOT be pul led off. They will fall off on their own. For two weeks after the biopsy the incision should not get wet. Should you want to take a shower, you should cover the incision with plastic f ood wrap, shower quickly (1-2 minutes) and afterwards you should inspect the site. If it has gotten wet you should dry it with a blow spray drier operator helper set on the cool setting. Activities such as swimming and tub bathing should be avoided for 3-4 weeks after the biopsy. The stitches shou ld not be removed. They will dissolve on their own. The knots may need to be cut or trimmed. Mild amounts of pain may be experienced after the muscle biopsy however; Acetaminophen i s usually all that is required for relief. You should avoid aspirin or aspirin containing me dications for 7 days after the biopsy. If you notice drainage, wound separation, marked redn ess, severe pain, or other signs of infection please contact your doctor immediately. If you have any questions or concerns please call Britany Morin at [phone] or Paul Nayak MD at [phone] (Toll Free ext. [phone]). After regular business hours pleas e call [phone] and ask for the Neurology Resident auto suspension and steering mechanic. documented in this encounter Progress Notes Paul Nayak MD - 10/28/2009 12:10 PM PSTI was personally present and observed for the entire muscle biopsy procedure. Alexey Chen MD - 9:20 AM PSTName: Tosin Reynolds : 1970 Gender: female Med Rec #: [id number] Visit date: 10/28/2009 Clinic: [facility] Procedure: Left Vastus lateralis muscle biopsy Preoperative diagnosis: Myositis Postoperative diagnosis: Myositis Circulating Nurse: None Anesthesia: Lidocaine 1 without epinephrine 10 ml subcutaneously Closure: 3-0 Polysorb Estimated blood loss 3 ml Complications: None BP 157/73 | Pulse 82 | Resp 16 | Wt 112.038 kg (247 lb) Description of procedure: After obtaining informed consent, the patient was prepared in the usual sterile manner. Lidocaine 1% was injected over the belly of the Left Vastus lateralis muscle. A 4 cm incision was made. A blunt dissection was preformed. The muscle fascia was i dentified. It was sectioned with a 15-blade scalpel. 4 specimens of tissue were removed and sent to the [facility] Department of Pathology for analysis. The fascia was closed with #3-0 Polys orb. A subcutaneous suture was also placed with #3-0 Polysorb. Steri-strips and a sterile dr essing were applied. The patient tolerated the procedure well, and there were no complicatio ns. A take home care sheet was given to the patient. Follow-up was scheduled documented in this encoun ter Plan of Treatment + + +--------+ + + | Name | Type | Priori | Associated Diagnoses | Order Schedule | | | | ty | | | + + +--------+ + + | IA DEEP MUSCLE | Procedures | Routin | Myositis | Ordered: 10/28/2009 | | BIOPSY | | e | | | + + +--------+ + + documented as of this encounter Procedures + +--------+ + + + | Procedure Name | Priori | Date/Time | Associated Diagnosis | Comments | | | ty | | | | + +--------+ + + + | LAB REPORTS | | 11/15/2009 | | Results for this | | | | 12:00 AM | | procedure are in the | | | | PST | | results section. | + +--------+ + + + | ORDERS OTHER | | 11/10/2009 | | Results for this | | | | 12:00 AM | | procedure are in the | | | | PST | | results section. | + +--------+ + + + | LAB OTHER | Routin | 10/28/2009 | | Results for this | | | e | 1:26 PM | | procedure are in the | | | | PST | | results section. | + +--------+ + + + | SURGICAL PATHOLOGY | Routin | 10/28/2009 | | Results for this | | | e | | | procedure are in the | | | | | | results section. | + +--------+ + + + | LAB REPORTS | | 10/25/2009 | | Results for this | | | | 12:00 AM | | procedure are in the | | | | PST | | results section. | + +--------+ + + + documented in this encounter Results LAB REPORTS (11/15/2009 12:00 AM PST) + + + | Narrative | Performed At | + + + | | | + + + + + | Procedure Note | + + | Marcelo Castellon - 11/15/2009 12:00 AM PST | | | + + ORDERS OTHER (11/10/2009 12:00 AM PST) + + + | Narrative | Performed At | + + + | | | + + + + + | Procedure Note | + + | Other, Faculty - 11/10/2009 12:00 AM PST | | | + + LAB OTHER (10/28/2009 1:26 PM PST) + + + + + + | Component | Value | Ref Range | Performed | Pathologist | | | | | At | Signature | + + + + + + | MISC REF | Fatty Acid Transport, | | [facility] | | | TEST NAME | Muscle Biopsy collected | | DEPARTMENT | | | | 10/28/09 | | OF | | | | | | PATHOLOGY | | + + + + + + | MISC REF | Report to be scanned | | [facility] | | | TEST RESULT | into [facility]. | | DEPARTMENT | | | | | | OF | | | | | | PATHOLOGY | | + + + + + + | REFERRAL | Molecular Genetics | | [facility] | | | LAB NAME | [facility] | | DEPARTMENT | | | | [facility] | | OF | | | | [address] | | PATHOLOGY | | | | [id number], [place] [address] | | | | + + + + + + + + | Specimen | + + | | + + + + + + + | Performing | Address | City/State/Zipcode | Phone Number | | Organization | | | | + + + + + | [facility] DEPARTMENT | [address] | [place] [address] | | | PATHOLOGY | [address] | | | + + + + + SURGICAL PATHOLOGY (10/28/2009) + + + + + + | Component | Value | Ref Range | Performed | Pathologist | | | | | At | Signature | + + + + + + | SURGICAL | THIS IS AN AMENDED | | [facility] | | | PATHOLOGY | REPORT SOURCE OF | | DEPARTMENT | | | | SPECIMEN:A Muscle | | OF | | | | Biopsy, Myopathy | | PATHOLOGY | | | | Final Pathologic | | | | | | Diagnosis:Amendment: | | | | | | This case is amended | | | | | | to correct the clerical | | | | | | errors in theGross | | | | | | Description. The | | | | | | diagnosis remains | | | | | | unchanged. | | | | | | Skeletal muscle, left | | | | | | quadriceps, biopsy: | | | | | | - Skeletal muscle | | | | | | with markedly increased | | | | | | intracellular lipid | | | | | | (Seecomment) - | | | | | | Mild type II atrophy | | | | | | Comment: The muscle | | | | | | for the most part is | | | | | | histologically | | | | | | unremarkable. | | | | | | Theincreased lipid is | | | | | | probably most pronounced | | | | | | in type I fibers, but | | | | | | bothfiber types appear | | | | | | effected. The increase | | | | | | could in muscle lipid | | | | | | could be areflection of | | | | | | a lipid utilization | | | | | | disorder, such as | | | | | | carnitinepalmitoyltransf | | | | | | erase 1 deficiency. | | | | | | Increased lipid can also | | | | | | be seen inassociation | | | | | | with a mitochondrial | | | | | | disorder. However, the | | | | | | SDH and NDIAYE | | | | | | arecompletely | | | | | | unremarkable. There are | | | | | | no ragged-red fibers. | | | | | | Case seen byMark | | | | | | Daja Treviño / | | | | | | Neuropathology FellowS. | | | | | | Demetrius Fuentes M.D. / | | | | | | | | | | | | NeuropathologistT:10/28/ | | | | | | 09: Amendment | | | | | | seen by :Christopher Treviño, | | | | | | Daja/Neuropathology | | | | | | FellowS. Humsajan | | | | | | Alfredo | | | | | | MJanice/PathologistT :10/25 | | | | | | 05/03 :michelle | | | | | | Clinical History:Per | | | | | | Epic: The patient is a | | | | | | 39-year-old woman with | | | | | | a previous diagnosis | | | | | | ofpossible polymyositis | | | | | | [id number]. She | | | | | | developed fluctuating | | | | | | weakness atabout age 31 | | | | | | following a back injury | | | | | | that she sustained in | | | | | | 2000.Initially, she had | | | | | | left hip pain and later | | | | | | right hip pain. Within a | | | | | | year,she began | | | | | | experiencing a sense of | | | | | | generalized fatigue. A | | | | | | muscle biopsy | | | | | | wasperformed in | | | | | | July 2005 and | | | | | | revealed some minimal | | | | | | changes | | | | | | somewhatsuggestive of | | | | | | but certainly not | | | | | | diagnostic of | | | | | | inflammation. Based on | | | | | | that,she was put on | | | | | | methotrexate which did | | | | | | not seem to help at all. | | | | | | She was thenswitched to | | | | | | IVIG which she feels | | | | | | may help some at least | | | | | | for a day or 2 | | | | | | withmaking her feel more | | | | | | energetic overall, | | | | | | though she tends to | | | | | | worsen quickly. | | | | | | Currently, her | | | | | | complaints are mostly of | | | | | | diffuse body aches and | | | | | | pains whichseem to be | | | | | | deep rather than | | | | | | superficial in nature. | | | | | | Walking up stairs | | | | | | isdifficult because it | | | | | | increases pain | | | | | | especially in her toes, | | | | | | feet, ankles,and lower | | | | | | legs, and to a lesser | | | | | | extent in her thighs.She | | | | | | has never noticed | | | | | | rashes. Confrontational | | | | | | strength exam shows 5/5 | | | | | | inall groups. Most | | | | | | recent CK that is | | | | | | available was 159 | | | | | | units/L. ESRs havebeen | | | | | | slightly elevated in the | | | | | | past. Aldolase was | | | | | | 15.8, which is | | | | | | elevated,when checked in | | | | | | 2004. An EMG was | | | | | | performed in April 2005 | | | | | | and did not showany | | | | | | evidence of myopathy. | | | | | | EMG/NCS performed in | | | | | | 11/02 at [facility] ( | | | | | | Misti)showed no evidence | | | | | | of myopathy, neuropathy | | | | | | or polyradiculopathy. | | | | | | Theimpression is of | | | | | | possible primary | | | | | | myopathy such as | | | | | | myositis, vs vitamin | | | | | | Ddeficiency, obstructive | | | | | | sleep apnea, or other | | | | | | non-neuromuscular cause | | | | | | ofgeneralized fatigue | | | | | | and weakness. | | | | | | Gross Description:The | | | | | | specimen is received | | | | | | fresh from Dr. Miller | | | | | | [facility] Department | | | | | | ofNeurology, [place], | | | | | | [place], delivered via | | | | | | union laborer on moist gauze | | | | | | over ice,labeled with | | | | | | the patient's name | | | | | | (initials AL) and "left | | | | | | quad." It consistsof a | | | | | | piece of light red | | | | | | tissue with attached | | | | | | fat, and measuring 2.0 x | | | | | | 1.0 x0.5 cm. A | | | | | | portion of the specimen | | | | | | is fixed in formalin | | | | | | forparaffin-embedding as | | | | | | block A2, a small | | | | | | fragment is fixed in | | | | | | glutaraldehydefor | | | | | | possible electron | | | | | | microscopy, and the | | | | | | remainder is frozen | | | | | | forhistochemical | | | | | | studies. Another | | | | | | fragment measuring cm is | | | | | | snap frozen forpossible | | | | | | future biochemical | | | | | | studies. Specimens | | | | | | InvolvedSpecimens: | | | | | | A: Muscle Biopsy, | | | | | | Myopathy | | | | | | HistologyTissue | | | | | | preservation | | | | | | goodMyofiber size : | | | | | | Variable: 30-100 | | | | | | micronsNo increase in | | | | | | internalized | | | | | | nucleiAngular atrophic | | | | | | myofibersComment(s): | | | | | | RarePyknotic nuclear | | | | | | clumpsComment(s): | | | | | | RareInflammation: No | | | | | | inflammation | | | | | | presentHistochemistryTri | | | | | | chome: Unremarkable with | | | | | | no ragged red fibers, | | | | | | nemaline rods or | | | | | | rimmedvacuolesNADH: | | | | | | Unremarkable with no | | | | | | targets, targetoids, | | | | | | ring fibers or | | | | | | tubularaggregatesSDH: No | | | | | | mitochondrial | | | | | | changesATPase (pH 9.4 | | | | | | and pH 4.5): | | | | | | Selective type 2 fiber | | | | | | atrophyComment(s): | | | | | | Minimal.Cytochrome | | | | | | Oxidase: Normal | | | | | | mitochondrial | | | | | | labelingPAS: Normal | | | | | | glycogen content and | | | | | | distributionPAS-D: | | | | | | Digested by | | | | | | ilniazboOry-Rzp-P: | | | | | | Increased lipid content | | | | | | in both fiber typesAcid | | | | | | Phosphatase: | | | | | | Unremarkable | | | | | | subsarcolemmalAlkaline | | | | | | Phosphatase: | | | | | | Unremarkable vascular | | | | | | labelingNon-specific | | | | | | Esterase: | | | | | | UnremarkableMyophosphory | | | | | | lase: | | | | | | PresentMyoadenylate | | | | | | Deaminase: | | | | | | PresentImmunohistochem | | | | | | istryMHC-1: | | | | | | Negative(Analyte | | | | | | specific reagents are | | | | | | used in many laboratory | | | | | | tests necessary | | | | | | [facility] | | | | | | [...] Administration.) | | | | | | My electronic signature | | | | | | indicates that I have | | | | | | personally reviewed | | | | | | alldiagnostic slides, | | | | | | the gross and/or | | | | | | microscopic portion of | | | | | | thisreport and | | | | | | formulated the final | | | | | | diagnosis. | | | | | | Rendering Diagnostician: | | | | | | Mariana Fuentes | | | | | | Betyi | | | | | | kolton Signed 11/09/2009 | | | | + + + + + + + + | Specimen | + + | Other | + + + + + + + | Performing | Address | City/State/Zipcode | Phone Number | | Organization | | | | + + + + + | [facility] | [address] | [place] [address] | | | PATHOLOGY | [address] | | | + + + + + LAB REPORTS (10/25/2009 12:00 AM PST) + + + | Narrative | Performed At | + + + | | | + + + + + | Procedure Note | + + | Marcelo Castellon - 10/25/2009 12:00 AM PST | | | + + documented in this encounter Visit Diagnoses + + | Diagnosis | + + | Myositis - Primary Mylagia and myositis, unspecified | + + documented in this encounter
--- OUTSIDE RECORDS SUMMARY | ~2019-11-12 | XMS | Encounter Summary ---
Demographics + + + | Address | [address] | | | [place] [address] | + + + | Home Phone | | + + + | Preferred Language | Unknown | + + + | Marital Status | | + + + | Yazdanism Affiliation | Unknown | + + + [...] Team Providers + +------+ + | Care Circulation Librarian Name | Role | Phone | + +------+ + PCP | Unavailable | + +------+ + Encounter Details +--------+ + + + + | Date | Type | Department | Care Team | Description | +--------+ + + + + | 07/18/ | Results | | Other, Faculty | | | 2004 | Only | | [phone] | | +--------+ + + + + [...] necessary | | | | | | [facility] | | | | | | and [...] [place] | | | | | | [place], | | | | | | [place], and consists of | | | | [...] necessary | | | | | | [facility] | | | | | | and [...] | Ordered by Carla Nicole MD | [facility] | | | DEPARTMENT OF | | | PATHOLOGY | + + + + + + + + | Performing | Address | City/State/Zipcode | Phone Number | | Organization | | | | + + + + + | [facility] DEPARTMENT OF | [address] | [place] [address] | | | PATHOLOGY | [address] | | | + + + + + | [facility] DEPARTMENT OF | [address] | [place] [address] | | | PATHOLOGY | [address] | | | + + + + + documented in this encounter Visit Diagnoses Not on filedocumented in this encounter"
--- OUTSIDE RECORDS SUMMARY | ~2019-11-12 | XMS | Encounter Summary ---
Demographics + + + | Address | [address] | | | [place] [address] | + + + | Home Phone | | + + + | Preferred Language | Unknown | + + + | Marital Status | | + + + | Mu-Ism Affiliation | Unknown | + + + [...] Team Providers + +------+ + | Care Shipping Technician Name | Role | Phone | + [...] | EVAL | HALI Montgomery MR # [id number] | | [facility] | | | [...] | | | | | | a training intern. Functional | | | | | | [...] in | | | | | | [place]. | | | | | | Assessment: [...] in | | | | | | [place] or [place] | | | | | | Frequency/Duration: [...] | [facility] | [address] | [place], [place] | | | REHABILITATION | [facility] | [address] | | | THERAPY | | | | + + + + + | [facility] | [address] | [place], [place] | | | REHABILITATION | [address] | [address] | | | THERAPY | | | | + + + + + documented in this encounter Visit Diagnoses Not on filedocumented in this encounter"
--- OUTSIDE RECORDS SUMMARY | ~2019-11-12 | XMS | Encounter Summary ---
Demographics + + + | Address | [address] | | | [place] [address] | + + + | Home Phone | | + + + | Preferred Language | Unknown | + + + | Marital Status | | + + + | Yazdanism Affiliation | Unknown | + + + | Race | White | + + + | Ethnic Group | Not or | + + + Author + + + | Author | [facility] | + + + | Organization | [facility] | + + + | Address | Unknown | + + + | Phone | Unavailable | + + + Support + + +---------+ + | Name | Relationship | Address | Phone | + + +---------+ + | Kourtney Galeas | ECON | Unknown | | + + +---------+ + Care Team Providers + +------+ + | Care Auger Operator Name | Role | Phone | + +------+ + | Macho Graf MD | PCP | | + +------+ + Encounter Details +--------+ + + + + | Date | Type | Department | Care Team | Description | +--------+ + + + + | 08/13/ | Telephone | Neurology | Karina Michelle MD | | | 2005 | | [facility] | [address] | | | | | [address] | [place], | | | | | [place] Mailcode: | [place] [address] | | | | | [address] Outpatient | [phone] | | | | | Clinic Building | | | | | | [place], [place] | | | | | | [address] | | | | | | [phone] | | | +--------+ + + + [...]
--- OUTSIDE RECORDS SUMMARY | ~2019-11-12 | XMS | Encounter Summary ---
Demographics + + + | Address | [address] | | | [place] [address] | + + + | Home Phone | | + + + | Preferred Language | Unknown | + + + | Marital Status | | + + + | Scientology Affiliation | Unknown | + + + | Race | White | + + + | Ethnic Group | Not or | + + + Author + + + | Author | [facility] | + + + | Organization | [facility] | + + + | Address | Unknown | + + + | Phone | Unavailable | + + + Support + + +---------+ + | Name | Relationship | Address | Phone | + + +---------+ + | Kourtney Galeas | ECON | Unknown | | + + +---------+ + Care Team Providers + +------+ + | Care Class B Truck Driver Name | Role | Phone | + +------+ + | Macho Graf MD | PCP | | + +------+ + Encounter Details +--------+------+ + + + | Date | Type | Department | Care Team | Description | +--------+------+ + + + | 10/27/ | Lab | Laboratory at [facility] | | Myalgia | | 2008 | | [address] | | | | | | [place], [place] | | | | | | [address] | | | | | | [phone] | | | +--------+------+ + + + [...] | | | | | | [address], [place] [address] | | | | | | [phone]. | | | | | | Charisse [...] [facility] | [address] | [place], [place] | | | [facility] | | [address] | | + + + + + ALDOLASE, SERUM (10/27/2009 9:02 AM PST) + + + + + + | Component | Value | Ref Range | Performed | Pathologist | | | | | At | Signature | + + + + + + | ALDOLASE | 6.9Comment: Performed by | 1.5 - 8.1 U/L | | | | SERUM | [employer],[address] | | | | | | [address], [facility] [place] [facility],[place] | | | | | | [address] | | | | | | [phone]. | | | | | | mateus, [...] [facility] | [address] | [place], [place] | | | [facility] | | [address] | | + + + + + [...] [facility] | REGIONAL | | [place] [address] [facility] | LABORATORY | | [place] [address] | | + + + + + + + + | Performing | Address | City/State/Zipcode | Phone Number | | Organization | | | | + + + + + | [facility] | [address] | [place] [address] | | | LABORATORY | | | [...] DEPARTMENT OF | [address] | [place] [address] | | | PATHOLOGY | [address] [...] + + + | [facility] | [address] | [place] [address] | | | PATHOLOGY | [address] | | | + + + + + documented in this encounter Visit Diagnoses + + | Diagnosis | + + | Myalgia Mylagia and myositis, unspecified | + + documented in this encounter"
--- OUTSIDE RECORDS SUMMARY | ~2019-11-12 | XMS | Encounter Summary ---
Demographics + + + | Address | [address] | | | [place] [address] | + + + | Home Phone | | + + + | Preferred Language | Unknown | + + + | Marital Status | | + + + | Orthodoxy Affiliation | Unknown | + + + [...] Team Providers + +------+ + | Care Database Marketing Specialist Name | Role | Phone | [...] [address] | | | | | | [place], [place] | | | | | | [address] | | | +--------+ + + + [...]
--- OUTSIDE RECORDS SUMMARY | ~2019-11-12 | XMS | Encounter Summary ---
Demographics + + + | Address | [address] | | | [place] [address] | + + + | Home Phone | | + + + | Preferred Language | Unknown | + + + | Marital Status | | + + + | Christian Affiliation | Unknown | + + + | Race | White | + + + | Ethnic Group | Not or | + + + Author + + + | Author | [facility] | + + + | Organization | [facility] | + + + | Address | Unknown | + + + | Phone | Unavailable | + + + Support + + +---------+ + | Name | Relationship | Address | Phone | + + +---------+ + | Kourtney Galeas | ECON | Unknown | | + + +---------+ + Care Team Providers + +------+ + | Care Family Manager Name | Role | Phone | [...] - Biopsy | | 2008 | | [facility] & | | | | | | Healing [address] | | | | | | [address] Mailcode: | | | | | | [facility] | [facility], | | | | | | Building | | | | | | Floor [place], [place] | | | | | | [address] | | | | | | [phone] | | | +--------+ + + + [...] Paul Nayak MD - 10/28/2009 12:[address] [address] [email or web address] Muscle Biopsy Care Sheet Because of your [...] you should dry it with a blow platen drier operator set on the cool setting. Activities such [...] or concerns please call Britany Morin at [phone] or Paul Nayak MD at [phone] (Toll Free ext. [phone]). After regular business hours pleas e call [phone] and ask for the Neurology Resident health and physical education teacher. documented in this encounter Progress Notes Paul Nayak MD - 10/28/2009 12:10 PM PSTI was personally present and observed for the entire muscle biopsy procedure. Alexey Chen MD - 9:20 AM PSTName: Tosin Reynolds : 1970 Gender: female Med Rec #: [id number] Visit date: 10/28/2009 Clinic: Neuromuscular Disease Clinic Procedure: Left Vastus lateralis muscle biopsy Preoperative diagnosis: Myositis Postoperative diagnosis: Myositis Log Washer: None Anesthesia: Lidocaine 1 without epinephrine 10 [...] tissue were removed and sent to the [facility] Department of Pathology for analysis. The fascia [...] | + + +--------+ + + | MT DEEP MUSCLE | Procedures | Routin | [...] | | | TEST RESULT | into [facility]. | | DEPARTMENT | | | | | | OF | | | | | | PATHOLOGY | | + + + + + + | REFERRAL | Molecular Genetics | | [facility] | | | LAB NAME [facility] | DEPARTMENT | | | | [facility] | | OF | | | | [address] | | PATHOLOGY | | | | [id number] [address] | | | | + + + + + + + + | Specimen | + + | | + + + + + + + | Performing | Address | City/State/Zipcode | Phone Number | | Organization | | | | + + + + + | [facility] DEPARTMENT | [address] | [place] [address] | | | PATHOLOGY | [address] | | | + + + + + SURGICAL PATHOLOGY (10/28/2009) + + + + + + | Component | Value | Ref Range | Performed | Pathologist | | | | | At | Signature | + + + + + + | SURGICAL | THIS IS AN AMENDED | | [facility] | | | PATHOLOGY | REPORT SOURCE [...] polymyositis | | | | | | [id number]. She | | | | | | [...] | | | | | 11/02 at [facility] ( | | | | | | [...] Miller | | | | | | [facility] Department | | | | | | ofNeurology, [place], | | | | | | [place], delivered via | | | | | | energy administrator on moist gauze | | | | [...] by | | | | | | pvrivqhbJfl-Vkv-E: | | | | | | Increased [...] necessary | | | | | | [facility] | | | | | | and [...] + + + + | [facility] | [address] | [place] [address] | | | PATHOLOGY | [address] [...]
--- OUTSIDE RECORDS SUMMARY | ~2019-11-12 | XMS | Encounter Summary ---
Demographics + + + | Address | [address] | | | [place] [address] | + + + | Home Phone | | + + + | Preferred Language | Unknown | + + + | Marital Status | | + + + | Yarsani Affiliation | Unknown | + + + | Race | Unknown | + + + | Ethnic Group | Unknown | + + + Author + + + | Author | [facility] | | | and Abhishekana | + + + | Organization | [facility] | | | and Abhishekana | + + + | Address | Unknown | + + + | Phone | Unavailable | + + + Care Team Providers + +------+ + | Care Civil Engineering Draftsperson Name | Role | Phone | + [...] [address] | | | | | [place], [place] | [place] [address] | | | | | [address] | [phone] | | | | | [phone] | | | +--------+ + + + [...] Performed At | + + + | [facility] [address] Ph: | | | Patient Name: RUCHI REYNOLDS Date of : | | | 1970 Medical Record: [id number] Account: [id number] | | | Exam Date/Time: 07/26/2011 09:15 [...] acquired | | | without contrast. Noncontrast vpeg-jl-vrhrnp MRA was acquired. | | | Multiplanar [...] | | | Anatomic variation of the chalkyitsik of Cline. No stenosis, | | | occlusion, aneurysm or vasculitis noted. | | + + + + + | Procedure Note | + + | Anderson, Rad Conversion - 07/18/2019 4:41 PM PDT | | [facility] | | [facility] [place] [address] | | | | | | Patient Name: RUCHI REYNOLDS | | Date of : 1970 | | Medical Record: [id number] | | Account: [id number] | | | | | | Exam [...] were acquired without contrast. | | Noncontrast tuaw-td-zucyfq MRA was acquired. Multiplanar MIP | | [...] | | 2. Anatomic variation of the chalkyitsik of Cline. No stenosis, occlusion, | | aneurysm or vasculitis noted. | | | | | + + documented in this encounter Visit Diagnoses Not on filedocumented in this encounter"
--- OUTSIDE RECORDS SUMMARY | ~2019-11-12 | XMS | Encounter Summary ---
Demographics + + + | Address | [address] | | | [place] [address] | + + + | Home Phone | | + + + | Preferred Language | Unknown | + + + | Marital Status | | + + + | Buddhist Affiliation | Unknown | + + + | Race | White | + + + | Ethnic Group | Not or | + + + Author + + + | Author | [facility] | + + + | Organization | [facility] | + + + | Address | Unknown | + + + | Phone | Unavailable | + + + Support + + +---------+ + | Name | Relationship | Address | Phone | + + +---------+ + | Kourtney Galeas | ECON | Unknown | | + + +---------+ + Care Team Providers + +------+ + | Care Special Education Resource Teacher Name | Role | Phone | + +------+ + | Macho Graf MD | PCP | | + +------+ + Encounter Details +--------+ + + + + | Date | Type | Department | Care Team | Description | +--------+ + + + + | 10/27/ | Hospital | Neurophysiology | Andre Chappell, | | | 2008 | Encounter | [facility] at [facility] 8th Floor | ,PhD Karrie, | | | | | [address] | [address] | | | | | Mailcode: CH[address] | [address] | | | | | [facility] | [place] [address] | | | | | and [place], | [phone] | | | | | | | | | | | Floor [place], [place] | | | | | | [address] | | | | | | [phone] | | | +--------+ + + + [...] | + +--------+ + + + | EMG/NERVE CONDUCTION | | 10/27/2009 | | Results for this | | STUDIES,ADULT - | | 11:59 PM | | procedure are in the | | NEUROLOGY | | PST | | results section. | + +--------+ + + + documented in this encounter Results EMG/NERVE CONDUCTION STUDIES,ADULT - NEUROLOGY (10/27/2009 11:59 PM PST) + + + | Narrative | Performed At | + + + | | | + + + + + | Procedure Note | + + | Marcelo Castellon - 10/27/2009 11:59 PM PST | | | + + documented in this encounter Visit Diagnoses Not on filedocumented in this encounter"
--- OUTSIDE RECORDS SUMMARY | ~2019-11-12 | XMS | Encounter Summary ---
Demographics + + + | Address | [address] | | | [place] [address] | + + + | Home Phone | | + + + | Preferred Language | Unknown | + + + | Marital Status | | + + + | Nondenominational Affiliation | Unknown | + + + | Race | White | + + + | Ethnic Group | Not or | + + + Author + + + | Author | [facility] | + + + | Organization | [facility] | + + + | Address | Unknown | + + + | Phone | Unavailable | + + + Support + + +---------+ + | Name | Relationship | Address | Phone | + + +---------+ + | Kourtney Galeas | ECON | Unknown | | + + +---------+ + Care Team Providers + +------+ + | Care Electrocardiograph Operator Name | Role | Phone | [...] | 2005 | Registratio | [address] [facility] | [address] | | | | [address] | [address] Mailcode: [address] | [place], [place] | | | | | [place], [place] | [address] | | | | | [address] | [phone] | | | | | [phone] | | | +--------+ + + + [...]
--- OUTSIDE RECORDS SUMMARY | ~2019-11-12 | XMS | Encounter Summary ---
Demographics + + + | Address | [address] | | | [place] [address] | + + + | Home Phone | | + + + | Preferred Language | Unknown | + + + | Marital Status | | + + + | Shinto Affiliation | Unknown | + + + | Race | White | + + + | Ethnic Group | Not or | + + + Author + + + | Author | [facility] | + + + | Organization | [facility] | + + + | Address | Unknown | + + + | Phone | Unavailable | + + + Support + + +---------+ + | Name | Relationship | Address | Phone | + + +---------+ + | Kourtney Galeas | ECON | Unknown | | + + +---------+ + Care Team Providers + +------+ + | Care Data Modeling Architect Name | Role | Phone | + +------+ + | Macho Graf MD | PCP | | + +------+ + Encounter Details +--------+ + + + + | Date | Type | Department | Care Team | Description | +--------+ + + + + | 12/26/ | Letter-[facility] | Allergy Clinic at | Letter, Clinic | Letters | | 2006 | scribed | [facility] [address] | | | | | | [address] | | | | | | Mailcode: [address] | | | | | | [address] | | | | | | [facility] | | | | | | [place] [address] | | | | | | [phone] | | | +--------+ + + + [...] as of this encounter Progress Notes Interface, Occup Therapist In - 12/28/2006 2:34 AM PST [id number] 12/26/2006 12/26/2006 [id number] GAIL Lee [id number] [address] [address] or Division of Pediatric Neurology 5 [facility], [address] [address] , December 26, 2006 Macho Graf M.D. [address] [place], [address] RE: RUCHI PRAJAPATI MR #: [id number] Dear Dr. Graf, I just had the opportunity to reevaluate Ana Maria Gail. Since we last saw her almost a year ago she has had several courses of MTX and IVIG for her pain. The last treatment was about 5 months ago. She basically states her major problem is pain. Although she complains of muscle weakness, I could not validate these symptoms (see below). She lives at home with her and 2 children, ages 8 and 12. She has trouble doing her homework because of pain, especially in her neck and pain. She went to PT and did say this was helpful. Her review of systems basically is unremarkable. She complains of a rare headache and a rare dizzy spell. She does have asthma but has not had a significant problem with that. She complains of some nausea but she has not had any episodes of vomiting. She has no problems with stools. She has no problems with urination. She did have a hysterectomy about 6 years ago, and therefore menses is not an issue. On the exam the extraocular movements and the pupils, as well as fundi and visual nogueira, are perfectly normal. There are no facial asymmetries. Tongue and palate move normally. She has give-away weakness of the neck flexors and extensors. She has a little give-away weakness of the distal muscles of the upper and lower extremities. Otherwise I did not detect any abnormalities on the motor exam. Yhtkkd-yc-fkct testing is normal. She cannot really walk on her toes and heels but I think this is more of a balance issue. The deep tendon reflexes are 2+ on a scale of a 4 and the toes are downgoing. I do not feel that she has a neuromuscular problem. I feel that her symptoms are pain-related and not neurological in nature. I would like to ensure I am not missing something, and therefore would you kindly forward to me the recent blood tests she had. Unfortunately, she did not bring the results to the appointment today. I would be very happy to review her issues with you over the phone. We did not give her a followup appointment at this time in the Neuromuscular Clinic at [facility]. One might consider referring her to the Pain Clinic if pain continues to be her major problem. Sincerely, Andrew Jones M.D. BSR / RODOLFO [id number] / [id number] / [id number] / cc: Torito Maguire M.D. [address] [place] [address], [address] documented in this encounter Plan of Treatment Not on filedocumented as of this encounter Visit Diagnoses Not on filedocumented in this encounter"
--- OUTSIDE RECORDS SUMMARY | ~2019-11-12 | XMS | Encounter Summary ---
Demographics + + + | Address | [address] | | | [place] [address] | + + + | Home Phone [...] + + + | Author | [facility] | + + + | Organization | [facility] | + + + | Address | Unknown | + + + | Phone | Unavailable | + + + Support + + +---------+ + | Name | Relationship | Address | Phone | + + +---------+ + | Kourtney Galeas | ECON | Unknown | | + + +---------+ + Care Team Providers + +------+ + | Care Rn Float Name | Role | Phone | + [...] [id number] | | | | | | [place], [place] | | | | | | [address] | | | | | | [phone] | | | +--------+ + + + [...]
--- OUTSIDE RECORDS SUMMARY | ~2019-11-12 | XMS | Encounter Summary ---
Demographics + + + | Address | [address] | | | [place] [address] | + + + | Home Phone | | + + + | Preferred Language | Unknown | + + + | Marital Status | | + + + | Scientology Affiliation | Unknown | + + + | Race | White | + + + | Ethnic Group | Not or | + + + Author + + + | Author | [facility] | + + + | Organization | [facility] | + + + | Address | Unknown | + + + | Phone | Unavailable | + + + Support + + +---------+ + | Name | Relationship | Address | Phone | + + +---------+ + | Kourtney Galeas | ECON | Unknown | | + + +---------+ + Care Team Providers + +------+ + | Care Skilled Trades Teacher Name | Role | Phone | + +------+ + | Macho Graf MD | PCP | | + +------+ + Encounter Details +--------+ + + + + | Date | Type | Department | Care Team | Description | +--------+ + + + + | 11/10/ | Test Engine Mechanic | Neurology at | Alexey Read MD | Myopathy (Primary | | 2008 | | [facility] & | | Dx) | | | | Healing [address] | | | | | | [address] Mailcode: | | | | | | [facility] | | | | | | Health and Healing, | | | | | | [facility] | | | | | | [place], [place] | | | | | | [address] | | | | | | [phone] | | | +--------+ + + + [...]
--- OUTSIDE RECORDS SUMMARY | ~2019-11-12 | XMS | Encounter Summary ---
Demographics + + + | Address | [address] | | | [place] [address] | + + + | Home Phone | | + + + | Preferred Language | Unknown | + + + | Marital Status | | + + + | Zoroastrian Affiliation | Unknown | + + + | Race | White | + + + | Ethnic Group | Not or | + + + Author + + + | Author | [facility] | + + + | Organization | [facility] | + + + | Address | Unknown | + + + | Phone | Unavailable | + + + Support + + +---------+ + | Name | Relationship | Address | Phone | + + +---------+ + | Kourtney Galeas | ECON | Unknown | | + + +---------+ + Care Team Providers + +------+ + | Care Senior Storage Engineer Name | Role | Phone | + +------+ + | Macho Graf MD | PCP | | + +------+ + Encounter Details +--------+ + + + + | Date | Type | Department | Care Team | Description | +--------+ + + + + | 10/27/ | Hospital | Neurophysiology | Andre Chappell, | | | 2008 | Encounter | EMG at [facility] 8th Floor | ,PhD Karrie, | | | | | [address] | [address] | | | | | Mailcode: [address] | [address] | | | | | [facility] | [place] [address] | | | | | and [address], | [phone] | | | | | | | | | | | Floor [place], [place] | | | | | | [address] | | | | | | [phone] | | | +--------+ + + + [...]
--- OUTSIDE RECORDS SUMMARY | ~2019-11-12 | XMS | Encounter Summary ---
Demographics + + + | Address | [address] | | | [place] [address] | + + + | Home Phone [...] Team Providers + +------+ + | Care Direct Service Provider Name | Role | Phone | + [...] as of this encounter Progress Notes Interface, Tow Driver In - 02/14/2006 2:09 AM PST [id number] 02/12/2006 02/12/2006 [id number] GAIL Montgomery [facility] [address] [place] [address] or February 12, 2006 Juaquin Maguire MD [address] [place] [address], [address] [place] [address] RE: HALI REYNOLDS MR #: [id number] Dear Dr. Maguire, I had the pleasure of seeing Hali Reynolds in Neuromuscular Clinic today. As you know, Karina Michelle M.D. Andrew Jones M.D. / [id number] / [id number] / [id number] / cc: Macho Graf MD [address] [place] [address] Atul Pepper MD [address] [place] [address] Garry Ojeda MD [address] [place] [address] [address] documented i n this encounter Plan of Treatment Not on filedocumented as of this encounter Visit Diagnoses Not on filedocumented in this encounter"
--- OUTSIDE RECORDS SUMMARY | ~2019-11-12 | XMS | Clinical Summary ---
Demographics + + + | Address | [address] | | | [place] [address] | + + + | Home Phone | | + + + | Preferred Language | Unknown | + + + | Marital Status | | + + + | Baptist Affiliation | 1073 | + + + | Race | Unknown | + + + | Ethnic Group | Unknown | + + + Author + + + | Author | [facility] (Historical as of | | | 07-11-19) | + + + | Organization | [facility] (Historical as of | | | 07-11-19) [...] [place] | | | | | [address] | | + + + + + Care Team Providers + +------+ + | Care Registered Private Duty Nurse Name | Role | Phone | + [...]
--- OUTSIDE RECORDS SUMMARY | ~2019-11-12 | XMS | Encounter Summary ---
Demographics + + + | Address | [address] | | | [place] [address] | + + + | Home Phone | | + + + | Preferred Language | Unknown | + + + | Marital Status | | + + + | Sikhism Affiliation | Unknown | + + + | Race | White | + + + | Ethnic Group | Not or | + + + Author + + + | Author | [facility] | + + + | Organization | [facility] | + + + | Address | Unknown | + + + | Phone | Unavailable | + + + Support + + +---------+ + | Name | Relationship | Address | Phone | + + +---------+ + | Kourtney Galeas | ECON | Unknown | | + + +---------+ + Care Team Providers + +------+ + | Care Commercial Real Estate Lender Name | Role | Phone | + +------+ + | Macho Graf MD | PCP | | + +------+ + Encounter Details +--------+ + + + + | Date | Type | Department | Care Team | Description | +--------+ + + + + | 12/26/ | Letter-[facility] | Allergy Clinic at | Letter, Clinic | Letters | | 2006 | scribed | [facility] [address] | | | | | | [address] | | | | | | Mailcode: [address] | | | | | | [address] | | | | | | [place] [facility] | | | | | | [place] [address] | | | | | | [phone] | | | +--------+ + + + [...] as of this encounter Progress Notes Interface, Broadloom Weaver In - 12/28/2006 2:34 AM PST [id number] 12/26/2006 12/26/2006 [id number] GAIL Lee [id number] [address] [address] or Division of Pediatric Neurology 5 [facility], [address] [address] , December 26, 2006 Macho Graf M.D. [address] [place], [address] RE: RUCHI PRAJAPATI MR #: [id number] Dear Dr. Graf, I just had the [...] detect any abnormalities on the motor exam. Lageso-la-jovl testing is normal. She cannot really walk [...] this time in the Neuromuscular Clinic at [facility]. One might consider referring her to the Pain Clinic if pain continues to be her major problem. Sincerely, Andrew Jones M.D. BSR / RODOLFO [id number] / [id number] / [id number] / cc: Torito Maguire M.D. [address] [place] [address], [address] documented in this encounter Plan of Treatment Not on filedocumented as of this encounter Visit Diagnoses Not on filedocumented in this encounter"
--- OUTSIDE RECORDS SUMMARY | ~2019-11-12 | XMS | Encounter Summary ---
Demographics + + + | Address | [address] | | | [place] [address] | + + + | Home Phone | | + + + | Preferred Language | Unknown | + + + | Marital Status | | + + + | Shinto Affiliation | Unknown | + + + | Race | Unknown | + + + | Ethnic Group | Unknown | + + + Author + + + | Author | [facility] | | | and Abhishekana | + + + | Organization | [facility] | | | and Abhishek[place] | + + + | Address | Unknown | + + + | Phone | Unavailable | + + + Care Team Providers + +------+ + | Care Clinic Lead Name | Role | Phone | + +------+ + PCP | Unavailable | + +------+ + Encounter Details +--------+ + + + + | Date | Type | Department | Care Team | Description | +--------+ + + + + | 07/09/ | Hospital | [facility] | Yasir Pettit | [facility] NOS-unspec | | 2009 - | Encounter | [facility] | MD [address] | | | | [address] [place], [place] | | | 07/13/ | | [address] | [address] | | | 2009 | | [place], [place] | | | | | | [address] | Cara Deal MD | | | | | [phone] | [address] | | | | | | [place] [address] | | | | | | [phone] | | | | | | | | +--------+ + + [...] + +--------+ + + + | MRI THORACIC SPINE | Routin | 07/09/2010 | | Results for this | | WO CONTRAST | e | 5:21 PM | | procedure are in the | | | | PDT | | results section. | + +--------+ + + + | MRI CERVICAL SPINE | Routin | 07/09/2010 | | Results for this | | WO CONTRAST | e | 5:21 PM | | procedure are in the | | | | PDT | | results section. | + +--------+ + + + | MRI BRAIN WO | Routin | 07/09/2010 | | Results for this | | CONTRAST | e | 4:30 PM | | procedure are in the | | | | PDT | | results section. | + +--------+ + + + | CT HEAD CERVICAL | Routin | 07/09/2010 | | Results for this | | SPINE WO CONTRAST | e | 11:31 AM | | procedure are in the | | | | PDT | | results section. | + +--------+ + + + | MRI LUMBAR SPINE WO | Routin | 07/09/2010 | | Results for this | | CONTRAST | e | 10:15 AM | | procedure are in the | | | | PDT | | results section. | + +--------+ + + + documented in this encounter Results MRI Thoracic Spine wo Contrast (07/09/2010 5:21 PM PDT) + + | Specimen | + + | | + + + + + | Narrative | Performed At | + + + | [id number] [facility] | | | [facility] [address] | | | , | | | Diagnostic Outsourced Patient Name: RUCHI REYNOLDS Date of | | | : 1970 Medical Record: [id number] Account: | | | [id number] I/P/6RP [id number]/ Exam Date/Time: | | | 07/09/2010 02:08 P Ordering Provider: KENDAL DAVENPORT | | | Detail: 1340 / / R Exam Description: MRI THORACIC SPINE | | | UNENHANCED | | | | | | MRI OF THE THORACIC SPINE UNENHANCED 07/09/2010 CLINICAL HISTORY | | | Right lower extremity weakness and numbness with several falls. | | | COMPARISON None. TECHNIQUE Multiplanar, multiweighted MRI | | | sequences were obtained of the thoracic spine without contrast. | | | FINDINGS No abnormal signal is seen in the spinal canal. Mild | | | multilevel endplate osteophytes are noted in the thoracic spine. | | | No acute bone findings. No fracture. Alignment is within normal | | | limits. No disk bulges or protrusions. No central or neural | | | foraminal stenosis. IMPRESSION Mild diffuse degenerative disk | | | disease with mild anterior osteophytes. No disk bulges or | | | protrusions. No central or neural foraminal stenosis. No acute | | | findings. Read by JASVIR ADDISON MD 07/09/2010 06:40 P | | | Electronically Signed by JASVIR ADDISON MD 07/10/2010 10:53 A DD: | | | 07/09/2010 06:[address] [facility]/ccv/[id number]/ | | + + + + + | Procedure Note | + + | Ez Barron Conversion - 07/19/2019 9:05 PM PDT | | [id number] | | [facility] | | [facility] [address] | | , | | Diagnostic Outsourced | | | | Patient Name: RUCHI REYNOLDS | | Date of : 1970 | | Medical Record: [id number] | | Account: [id number] | | I/P/6RP [id number]/ | | | | | | Exam Date/Time: 07/09/2010 02:08 P | | Ordering Provider: KENDAL DAVENPORT | | Order Detail: 1340 / / HMR | | Exam Description: MRI THORACIC SPINE UNENHANCED | | | | MRI OF THE THORACIC SPINE UNENHANCED 07/09/2010 | | | | CLINICAL HISTORY | | Right lower extremity weakness and numbness with several falls. | | | | COMPARISON | | None. | | | | TECHNIQUE | | Multiplanar, multiweighted MRI sequences were obtained of the thoracic | | spine without contrast. | | | | FINDINGS | | No abnormal signal is seen in the spinal canal. | | | | Mild multilevel endplate osteophytes are noted in the thoracic spine. | | | | No acute bone findings. No fracture. Alignment is within normal limits. | | | | No disk bulges or protrusions. No central or neural foraminal stenosis. | | | | IMPRESSION | | Mild diffuse degenerative disk disease with mild anterior osteophytes. | | No disk bulges or protrusions. No central or neural foraminal stenosis. | | No acute findings. | | | | Read by | | JASVIR ADDISON MD 07/09/2010 06:40 P | | Electronically Signed by | | JASVIR ADDISON MD 07/10/2010 10:53 A | | P | | A | | J/[id number]/[id number]/ | + + MRI Cervical Spine wo Contrast (07/09/2010 5:21 PM PDT) + + | Specimen | + + | | + + + + + | Narrative | Performed At | + + + | [id number] [facility] | | | [facility] [address] | | | , | | | Diagnostic Outsourced Patient Name: RUCHI REYNOLDS Date of | | | : 1970 Medical Record: [id number] Account: | | | [id number] I/P/6RP [id number]/ Exam Date/Time: | | | 07/09/2010 01:57 P Ordering Provider: LUIS DANIEL DOBBINS Order | | | Detail: 1220 / / HMR Exam Description: MRI CERVICAL SPINE | | | UNENHANCED | | | | | | MRI OF THE CERVICAL SPINE UNENHANCED 07/09/2010 HISTORY Right | | | lower extremity weakness. Several falls. COMPARISON CT of the | | | cervical spine from 07/09/[address] images were | | | obtained through the cervical spine without IV contrast. FINDINGS | | | Mild endplate osteophytes are noted at C5-C6 as seen with mild | | | degenerative disk disease. Mild diffuse facet arthropathy is | | | noted. As a result, there is mild right neural foraminal narrowing at | | | the levels of C3-C4, C4-C5 and C5-C6. No central stenosis. No | | | abnormal signal is seen in the spinal cord. No acute fracture. | | | Alignment is within normal limits. No worrisome bone lesion is seen. | | | Specifically, no focal bone lesion is seen at C3. IMPRESSION: 1. | | | Mild diffuse bilateral facet arthropathy. Mild right-sided C3 to C6 | | | neural foraminal narrowing. No central stenosis. 2. No acute | | | findings. See above. Read by JASVIR ADDISON MD 07/09/2010 06:50 | | | P Electronically Signed by JASVIR ADDISON MD 07/10/2010 10:53 A | | | P A [facility]/ccv/[id number]/ | | + + + + + | Procedure Note | + + | AndersonEz mi Conversion - 07/19/2019 9:05 PM PDT | | [id number] | | [facility] | | [facility] [address] | | , | | Diagnostic Outsourced | | | | Patient Name: RUCHI REYNOLDS | | Date of : 1970 | | Medical Record: [id number] | | Account: [id number] | | I/P/6RP [id number]/ | | | | | | Exam Date/Time: 07/09/2010 01:57 P | | Ordering Provider: LUIS DANIEL DOBBINS | | Order Detail: 1220 / / HMR | | Exam Description: MRI CERVICAL SPINE UNENHANCED | | | | MRI OF THE CERVICAL SPINE UNENHANCED 07/09/2010 | | | | HISTORY | | Right lower extremity weakness. Several falls. | | | | COMPARISON | | CT of the cervical spine from 07/09/2010 | | | | TECHNIQUE | | Axial CT images were obtained through the cervical spine without IV | | contrast. | | | | FINDINGS | | Mild endplate osteophytes are noted at C5-C6 as seen with mild | | degenerative disk disease. | | | | Mild diffuse facet arthropathy is noted. As a result, there is mild | | right neural foraminal narrowing at the levels of C3-C4, C4-C5 and | | C5-C6. No central stenosis. | | | | No abnormal signal is seen in the spinal cord. | | | | No acute fracture. Alignment is within normal limits. No worrisome bone | | lesion is seen. Specifically, no focal bone lesion is seen at C3. | | | | IMPRESSION: | | 1. Mild diffuse bilateral facet arthropathy. Mild right-sided C3 to C6 | | neural foraminal narrowing. No central stenosis. | | 2. No acute findings. See above. | | | | Read by | | JASVIR ADDISON MD 07/09/2010 06:50 P | | Electronically Signed by | | JASVIR ADDISON MD 07/10/2010 10:53 A | | P | | A | | AN[facility]/[id number]/[id number]/ | + + MRI Brain wo Contrast (07/09/2010 4:30 PM PDT) + + | Specimen | + + | | + + + + + | Narrative | Performed At | + + + | [id number] [facility] | | | [facility] [address] | | | , | | | Diagnostic Outsourced Patient Name: RUCHI REYNOLDS Date of | | | : 1970 Medical Record: [id number] Account: | | | [id number] I/P/6RP [id number]/ Exam Date/Time: | | | 07/09/2010 01:57 P Ordering Provider: LUIS DANIEL DOBBINS Order | | | Detail: 980 / / HMR Exam Description: MRI BRAIN | | | | | | MRI OF THE BRAIN UNENHANCED 07/09/2010 CLINICAL HISTORY | | | Dizziness. Right lower extremity weakness. COMPARISON None. | | | TECHNIQUE Multiplanar, multiweighted MRI sequences were obtained of | | | the brain without contrast. FINDINGS On the T1W sagittal | | | sequence, the midline structures (upper cervical cord, brainstem, | | | corpus callosum, sella, aqueduct and posterior fossa) appear normal | | | in configuration, signal intensity, and position. The ventricles, | | | sulci and cisterns are normal in size for age. No mass or mass | | | effect, intra- or extra-axial fluid collection or area of abnormal | | | signal intensity is identified. No congenital malformations | | | evident. The internal auditory canals and cerebellopontine angles | | | are unremarkable. IMPRESSION Normal MRI of the brain without IV | | | contrast. Read by JASVIR ADDISON MD 07/09/2010 08:42 P | | | Electronically Signed by JASVIR ADDISON MD 07/10/2010 10:53 A DD: | | | 07/09/2010 08:42 P A [facility]/ccv/[id number]/ | | + + + + + | Procedure Note | + + | Ez Barron - 07/19/2019 9:05 PM PDT | | [id number] | | [facility] | | [facility] [address] | | , | | Diagnostic Outsourced | | | | Patient Name: RUCHI REYNOLDS | | Date of : 1970 | | Medical Record: [id number] | | Account: [id number] | | I/P/6RP [id number]/ | | | | | | Exam Date/Time: 07/09/2010 01:57 P | | Ordering Provider: LUIS DANIEL DOBBINS | | Order Detail: 980 / / HMR | | Exam Description: MRI BRAIN | | | | MRI OF THE BRAIN UNENHANCED 07/09/2010 | | | | CLINICAL HISTORY | | Dizziness. Right lower extremity weakness. | | | | COMPARISON | | None. | | | | TECHNIQUE | | Multiplanar, multiweighted MRI sequences were obtained of the brain | | without contrast. | | | | FINDINGS | | On the T1W sagittal sequence, the midline structures (upper cervical | | cord, brainstem, corpus callosum, sella, aqueduct and posterior fossa) | | appear normal in configuration, signal intensity, and position. | | | | The ventricles, sulci and cisterns are normal in size for age. No mass | | or mass effect, intra- or extra-axial fluid collection or area of | | abnormal signal intensity is identified. No congenital malformations | | evident. | | | | The internal auditory canals and cerebellopontine angles are | | unremarkable. | | | | IMPRESSION | | Normal MRI of the brain without IV contrast. | | | | Read by | | JASVIR ADDISON MD 07/09/2010 08:42 P | | Electronically Signed by | | JASVIR ADDISON MD 07/10/2010 10:53 A | | P | | A | | ANUR[facility]HA/[id number]/ | + + CT Head Cervical Spine wo Contrast (07/09/2010 11:31 AM PDT) + + | Specimen | + + | | + + + + + | Narrative | Performed At | + + + | [facility] [address] Ph: | | | Patient Name: RUCHI REYNOLDS Date of : | | | 1970 Medical Record: [id number] Account: [id number] | | | Exam Date/Time: 07/09/2010 11:11 Ordering | | | Physician: LUIS DANIEL DOBBINS Order Detail: [id number] Exam Description: | | | CT HEAD/CERVICAL SPINE | | | | | | RUCHI REYNOLDS CT HEAD/CERVICAL SPINE HISTORY: 40 years. | | | Female. Fell and hit head with right leg weakness/numbness and | | | headache. TECHNIQUE: CT examination of the head and cervical | | | spine was performed. Sagittal and coronal images of the cervical | | | spine was also obtained. COMPARISON: None. FINDINGS HEAD: | | | There are no abnormal areas of increased or decreased density seen | | | throughout the brain. The ventricles are normal in size and occupy | | | midline position. The basilar cisterns are preserved. The mastoid | | | and paranasal sinuses are clear. C-SPINE: There is straightening | | | of the normal cervical lordosis. There is a 5-mm fairly well | | | circumscribed lucency within the C3 vertebral body that is | | | nonspecific but favors a nonaggressive bone lesion. There is mild | | | straightening of the normal cervical lordosis . No cervical spine | | | fracture. The prevertebral soft tissues are unremarkable. There are | | | scattered nonenlarged lymph nodes throughout the neck. C2-3: | | | There is mild uncovertebral joint hypertrophy with mild bilateral | | | degenerative facet disease. No central canal stenosis or | | | neuroforaminal narrowing. C3-4: There is mild bilateral vertebral | | | joint hypertrophy without to disc herniation or central canal | | | stenosis is mild degenerative facet disease on the left side. | | | C4-5: There is mild degenerative disc disease with endplate spurring | | | and. There is bilateral vertebral joint hypertrophy. There is no | | | central canal stenosis or neuroforaminal narrowing. C5-6: There | | | is no disc herniation, central canal stenosis or neuroforaminal | | | narrowing. C6-7: There is no disc herniation, central canal | | | stenosis, or neuroforaminal narrowing. IMPRESSION: 1. | | | Unremarkable CT head without contrast. 2. Mild degenerative | | | change of the cervical spine without evidence of fracture. 3. 5-mm | | | lucency within the C3 vertebral body that favors a nonaggressive | | | bone lesion. MRI of the cervical spine could be performed to further | | | evaluate on a nonemergent basis. | | + + + + + | Procedure Note | + + | Ez Barron - 07/19/2019 9:05 PM PDT | | [facility] | | [facility] [address] | | | | | | Patient Name: RUCHI REYNOLDS | | Date of : 1970 | | Medical Record: [id number] | | Account: [id number] | | | | | | Exam Date/Time: 07/09/2010 11:11 | | Ordering Physician: LUIS DANIEL DOBBINS | | Order Detail: [id number] | | Exam Description: CT HEAD/CERVICAL SPINE | | | | RUCHI REYNOLDS | | CT HEAD/CERVICAL SPINE | | | | HISTORY: | | 40 years. Female. Fell and hit head with right leg weakness/numbness and | | headache. | | | | TECHNIQUE: | | CT examination of the head and cervical spine was performed. Sagittal and | | coronal images of the cervical spine was also obtained. | | | | COMPARISON: | | None. | | | | FINDINGS | | HEAD: There are no abnormal areas of increased or decreased density seen | | throughout the brain. The ventricles are normal in size and occupy midline | | position. The basilar cisterns are preserved. | | | | The mastoid and paranasal sinuses are clear. | | | | C-SPINE: There is straightening of the normal cervical lordosis. There is a | | 5-mm fairly well circumscribed lucency within the C3 vertebral body that is | | nonspecific but favors a nonaggressive bone lesion. There is mild | | straightening of the normal cervical lordosis . No cervical spine fracture. | | The prevertebral soft tissues are unremarkable. There are scattered | | nonenlarged lymph nodes throughout the neck. | | | | C2-3: There is mild uncovertebral joint hypertrophy with mild bilateral | | degenerative facet disease. No central canal stenosis or neuroforaminal | | narrowing. | | | | C3-4: There is mild bilateral vertebral joint hypertrophy without to disc | | herniation or central canal stenosis is mild degenerative facet disease on | | the left side. | | | | C4-5: There is mild degenerative disc disease with endplate spurring and. | | There is bilateral vertebral joint hypertrophy. There is no central canal | | stenosis or neuroforaminal narrowing. | | | | C5-6: There is no disc herniation, central canal stenosis or neuroforaminal | | narrowing. | | | | C6-7: There is no disc herniation, central canal stenosis, or | | neuroforaminal narrowing. | | | | IMPRESSION: | | 1. Unremarkable CT head without contrast. | | 2. Mild degenerative change of the cervical spine without evidence of | | fracture. | | 3. 5-mm lucency within the C3 vertebral body that favors a | | nonaggressive bone lesion. MRI of the cervical spine could be performed to | | further evaluate on a nonemergent basis. | | | | | + + MRI Lumbar Spine wo Contrast (07/09/2010 10:15 AM PDT) + + | Specimen | + + | | + + + + + | Narrative | Performed At | + + + | [facility] [address] Ph: | | | Patient Name: RUCHI REYNOLDS Date of : | | | 1970 Medical Record: [id number] Account: [id number] | | | Exam Date/Time: 07/09/2010 09:23 Ordering | | | Physician: LUIS DANIEL DOBBINS Order Detail: [id number] Exam Description: | | | MRI LUMBAR SPINE UNENHANCED | | | | | | RUCHI REYNOLDS MRI LUMBAR SPINE UNENHANCED 07/09/2010 9:23 AM | | | HISTORY: 40 years. Female. Right lower extremity weakness and | | | numbness with several falls this a.m. TECHNIQUE: Imaging was | | | performed on a 1.5 Lizeth MRI system. Multiplanar sequences of the | | | lumbar spine was performed according to a standard department protocol | | | without contrast. COMPARISON: None. FINDINGS: The | | | vertebral height and alignment is normal. There is no focal | | | worrisome marrow signal abnormality. The conus medullaris | | | terminates at the level of T12-L1. The paraspinal soft tissues are | | | normal. L1-L2: Normal. L2-L3: Normal. L3-L4: Normal. | | | L4-L5: Normal. L5-S1: There is disc desiccation with moderate disc | | | space narrowing and associated degenerative endplate change. There | | | is a mild diffuse disc bulge with a more focal central disc | | | protrusion that efface the ventral thecal sac without significant | | | central canal stenosis. There is mild bilateral neuroforaminal | | | narrowing without compression of the exiting nerve roots. There is | | | mild bilateral degenerative facet disease. IMPRESSION: 1. | | | Degenerative disc and facet disease at L5-S1 with a small central | | | disc protrusion without central canal stenosis or compression the | | | exiting nerve roots. | | + + + + + | Procedure Note | + + | Anderson, Rad Conversion - 07/19/2019 9:05 PM PDT | | [facility] | | [facility] [address] | | | | | | Patient Name: RUCHI REYNOLDS | | Date of : 1970 | | Medical Record: [id number] | | Account: [id number] | | | | | | Exam Date/Time: 07/09/2010 09:23 | | Ordering Physician: LUIS DANIEL DOBBINS | | Order Detail: [id number] | | Exam Description: MRI LUMBAR SPINE UNENHANCED | | | | RUCHI REYNOLDS | | MRI LUMBAR SPINE UNENHANCED | | 07/09/2010 9:23 AM | | | | HISTORY: | | 40 years. Female. Right lower extremity weakness and numbness with | | several falls this a.m. | | | | TECHNIQUE: | | Imaging was performed on a 1.5 Lizeth MRI system. Multiplanar sequences of | | the lumbar spine was performed according to a standard department protocol | | without contrast. | | | | COMPARISON: | | None. | | | | FINDINGS: | | The vertebral height and alignment is normal. | | | | There is no focal worrisome marrow signal abnormality. | | | | The conus medullaris terminates at the level of T12-L1. | | | | The paraspinal soft tissues are normal. | | | | L1-L2: Normal. | | | | L2-L3: Normal. | | | | L3-L4: Normal. | | | | L4-L5: Normal. | | | | L5-S1: There is disc desiccation with moderate disc space narrowing and | | associated degenerative endplate change. There is a mild diffuse disc bulge | | with a more focal central disc protrusion that efface the ventral thecal | | sac without significant central canal stenosis. There is mild bilateral | | neuroforaminal narrowing without compression of the exiting nerve roots. | | There is mild bilateral degenerative facet disease. | | | | IMPRESSION: | | 1. Degenerative disc and facet disease at L5-S1 with a small central | | disc protrusion without central canal stenosis or compression the exiting | | nerve roots. | | | | | + + documented in this encounter Visit Diagnoses + + | Diagnosis | + + | Osteoarthrosis, unspecified whether generalized or localized, unspecified site | + + documented in this encounter"
--- OUTSIDE RECORDS SUMMARY | ~2019-11-12 | XMS | Clinical Summary ---
Demographics + + + | Address | [address] | | | [place] [address] | + + + | Home Phone | | + + + | Preferred Language | Unknown | + + + | Marital Status | | + + + | Moravian Affiliation | Unknown | + + + | Race | Unknown | + + + | Ethnic Group | Unknown | + + + Author + + + | Author | [facility] | | | and Abhishekana | + + + | Organization | [facility] | | | and [place] | + + + | Address | Unknown | + + + | Phone | Unavailable | + + + Care Team Providers + +------+ + | Care Rollway Worker Name | Role | Phone | [...]
--- OUTSIDE RECORDS SUMMARY | ~2019-11-12 | XMS | Encounter Summary ---
Demographics + + + | Address | [address] | | | [place] [address] | + + + | Home Phone | | + + + | Preferred Language | Unknown | + + + | Marital Status | | + + + | Worship Affiliation | Unknown | + + + | Race | White | + + + | Ethnic Group | Not or | + + + Author + + + | Author | [facility] | + + + | Organization | [facility] | + + + | Address | Unknown | + + + | Phone | Unavailable | + + + Support + + +---------+ + | Name | Relationship | Address | Phone | + + +---------+ + | Kourtney Galeas | ECON | Unknown | | + + +---------+ + Care Team Providers + +------+ + | Care Film Rental Clerk Name | Role | Phone | + [...] Description | +--------+---------+ + + + | 10/27/ | Office | Neurology at | Alexey Read MD | Myalgia (Primary | | 2008 | Visit | [facility] & | | Dx); Vitamin D | | | | [address] | | deficiency; Muscle | | | | [place] Mailcode: | | weakness | | | | [facility] | | | | | | Health and Healing, | | | | | | Building | | | | | | Floor [place], [place] | | | | | | [address] | | | | | | [phone] | | | +--------+---------+ + + + [...] + + + | Blood Pressure | 151/73 | 10/27/2009 7:53 AM | | | | | PST | | + + + + + | Pulse | 80 | 10/27/2009 7:53 AM | | | | | PST | | + + + + + | Temperature | - | - | | + + + + + | Respiratory Rate | 17 | 10/27/2009 7:53 AM | | | | | PST | | + + + + + | Oxygen Saturation | - | - | | + + + + + | Inhaled Oxygen | - | - | | | Concentration | | | | + + + + + | Weight | 112 kg (247 lb) | 10/27/2009 7:53 AM | | | | | PST | | + + + + + | Height | - | - | | + + + + + | Body Mass Index | 41.1 | 12/26/2006 10:31 AM | | | | | PST | | + + + + + documented in this encounter Progress Notes Alexey Read MD - 10/27/2009 8:52 AM [facility] NEUROMUSCULAR CLINIC FELLOW CONSULTATION NOTE Tosin Ana Maria Reynolds is a 39-year-old woman with a previous diagnosis of possible polymyo sitis who returns for revisitation of the diagnosis. She was last seen by Dr. Michelle and Dr Marcy Jones in 2005. I will recapitulate the pertinent aspects of her history. She developed weakness at about age 31 or 32 which would have been about 7-8 years ago. Th is seemed to follow closely after a back injury that she sustained in 2000, when moving a he nilay object. Initially, she had left hip pain and later right hip pain. Within a year, she began experiencing weakness throughout her body, though she really does not describe any cer tain activities which were more difficult for her but rather describes a sense of generalize d fatigue. There is quite a bit of fluctuation in severity of weakness from day to day and even from hour to hour. A muscle biopsy was performed in July 2005 and revealed some m inimal changes somewhat suggestive of but certainly not diagnostic of inflammation. Based o n that, she was put on methotrexate which did not seem to help at all. She was then switche d to IVIG which she feels may help some at least for a day or 2 with making her feel more en ergetic overall, though she tends to worsen quickly. Currently, her complaints are mostly of diffuse body aches and pains which seem to be deep rather than superficial in nature. There is not a burning component. She describes that sulaiman may be particularly severe even while she is at rest and has not been active, though in general activity makes them worse. The pain is especially prominent in her lower back as we ll as up around her neck and shoulder region. She notes that washing dishes is difficult be cause it makes her lower back hurt, and to a lesser extent it makes her shoulders, neck, and head hurt. Walking up stairs is difficult because it increases pain especially in her toes , feet, ankles, and lower legs, and to a lesser extent in her thighs. She has never noticed rashes. Medications: Albuterol inhaler, Xanax p.r.n., Cymbalta 90 mg daily, gabapentin 200 mg 4 ti mes a day, IVIG every 2 weeks, insulin injections, lansoprazole 30 mg daily, levothyroxine 7 5 mcg daily, metoprolol 25 mg b.i.d., pregabalin 75 mg b.i.d., Phenergan 25 mg p.r.n., Seroq uel 300 mg daily, Tizanidine 4 mg p.r.n., Topamax 125 mg daily, Univasc 30 mg daily, Vicodin p.r.n. Allergies: CODEINE. Past Medical History: Hypothyroidism, hypertension, hyperlipidemia, gastroesophageal reflu x disease, headaches, depression, asthma, "bipolar disorder," obesity, left and right carpal tunnel releases in 1993, sinus surgery in 1991, hysterectomy in 2003, cholecystectomy in . Family History: Mother had hypertension. Father had hypertension and stroke. Social History: She has a remote smoking history, but currently does not use cigarettes. She does not drink alcohol. 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 She uses a cane 25% of the time. Review of Systems: A 14-point review of systems was completed by the patient and is negati ve except: Recent weight gain of 40 pounds, weakness, fatigue, fever, sweats, chills, decre ased appetite, difficulty sleeping, hypersomnolence, skin sores, itching, dryness, excessive sweating, changes in nails and hair, strange hair distribution, increased thirst, acne, hea dache, eye pain, sensitivity to light, use of eye drops, dry mouth, breast lumps, wheezing, chest pain, abdominal pain, pain with swallowing, heartburn, indigestion, bloating, nausea, poor sexual libido, hot and cold intolerance, diabetes, and stiffness. EXAMINATION: VITALS - BP 151/73 | Pulse 80 | Resp 17 | Wt 112.038 kg (247 lb) GENERAL - This is a pleasant, obese woman. Undilated fundoscopic exam: normal bilaterally. Eyelid exam: normal. Cardiovascular exam: cor regular rate and rhythm, no murmur, pulses f ull. Lungs clear bilaterally with full excursion. MENTAL STATUS - Alert, attentive. Short-term memory intact for current events. Language is appropriate for confrontational naming, following 3-step commands, reading, and writing. CRANIAL NERVES - Near visual acuity is grossly normal. Peripheral visual nogueira are intac t to confrontation OU. Pupils are isocoric and equally reactive. Horizontal and vertical s accades are normal without pathologic nystagmus. Facial sensation is intact and symmetric f or touch and cold. Facial strength is full and air can be held in cheeks. Hearing is intac t to finger rub bilaterally. Palate elevation is symmetric. Shoulder shrug strength is fu ll and symmetric. Tongue protrusion is midline. MOTOR - Tone: normal. Bulk: normal. Confrontational strength exam (complicated by superi mposed give-way): neck flexion 5, neck extension 5, deltoids 5, biceps 5, triceps 5, wrist e xtension 5, finger extension 5, finger flexion 5, finger abduction 5; hip flexion 5, knee ex tension 5, knee flexion 5, ankle dorsiflexion 5, ankle plantarflexion 5. REFLEXES - Biceps 2+, brachioradialis 2+, triceps 2+, knee 2+, and ankle jerks 2+. Planta r responses are flexor bilaterally. SENSORY - Sensation of pinprick is normal without distal gradation. Sensation of vibratio n (Rydel-Seiffer value): hallux IP 3, medial malleolus 4, knee 5, index DIP 6. Romberg's si gn is absent. COORDINATION - Rbwwnf-qjkk-jebtxn and heel-taveras tests are normal bilaterally. GAIT/STATION - Gait is normal. REVIEW OF ANCILLARY DATA / MEDICAL RECORDS: I reviewed the results of the previous [facility] evaluation as well as the pathologist report of the muscle biopsy: "The small numbers of endomysial and perivascular lymphocytes are not as sociated with reactive changes in their immediate vicinity and are of such small numbers ovidio t they are not sufficient for designation as an inflammatory myopathy. Nonetheless, there a re a small number of degenerating and regenerating fibers present that further suggests a my opathic process. Perifascicular atrophy indicative of dermatomyositis is not seen and no e vidence of dermatomyositis is seen on the skin biopsy. No evidence of a neurogenic process is identified. Deeper level sections fail to identify any additional abnormalities." I also reviewed notes from her respiratory medicine physician Dr. Maguire, and her PCP Dr. Graf. Most r ecent CK that is available to me was 159 units/L. That was in April 2009. Dr. Jones notes that she had 1 slightly elevated CPK in the past, at 226 units/L (range of normal at that l ab was 27 to 210). Interestingly, a CK obtained three days prior to the elevated value was only 80. All of the CKs were from August 2005. She has had ESRs which have been slightly elevated in the past. Aldolase was 15.8, which is elevated, when checked in 2004. An EMG w as performed in April 2005 and did not show any evidence of myopathy, per Dr. Jones's note. DIAGNOSIS: Possible primary myopathy such as myositis, vs vitamin D deficiency, obstructive sleep apne a, or other non-neuromuscular cause of generalized fatigue and weakness She will have an EMG and a muscle biopsy as part of her [facility] evaluation. Hopefully, we can settle the question as to whether or not this represents polymyositis or less likely dermat omyositis. Currently, the diagnosis is not at all secure and it is quite possible that she does not have a primary neuromuscular disorder. Other possibilities would include vitamin D deficiency or obstructive sleep apnea. RECOMMENDATIONS/PLAN: - EMG/NCS - muscle biopsy Alexey Read MD [facility] Neuromuscular Fellow I spent 80 minutes with Tosin Reynolds, 50% of which was in counseling regarding po lymyositis and IVIG. I have discussed this case with Paul Nayak MD, who participated in the formulation of e plan. documented in this e ncounter Plan of Treatment Not on filedocumented as of this encounter Procedures + +--------+ + + + | Procedure Name | Priori | Date/Time | Associated Diagnosis | Comments | | | ty | | | | + +--------+ + + + | ORDERS OTHER | | 10/27/2009 | | Results for this | | | | 3:01 PM | | procedure are in the | | | | PST | | results section. | + +--------+ + + + documented in this encounter Results ORDERS OTHER (10/27/2009 3:01 PM PST) + + + | Narrative | Performed At | + + + | | | + + + + + | Procedure Note | + + | Marcelo Castellon - 10/27/2009 3:01 PM PST | | | + + VITAMIN D, 25-HYDROXY, SERUM (10/27/2009 9:02 AM [...] [facility] | | | | | | [facility],[address] [facility] | | | | | | [place] [address] | | | | | | [phone]. | | | | | | Charisse [...] [facility] | [address] | [place], [place] | | | [facility] | | [address] | | + + + + + ALDOLASE, SERUM (10/27/2009 9:02 AM PST) + + + + + + | Component | Value | Ref Range | Performed | Pathologist | | | | | At | Signature | + + + + + + | ALDOLASE | 6.9Comment: Performed by | 1.5 - 8.1 U/L | | | | SERUM | [facility] | | | | | | [address]a, [facility] [place] | | | | | | [address] | | | | | | [phone]. | | | | | | Charisse [...] + + | [facility] | [address] | [place], [place] | | | [address] [facility] | | [address] | | + + + + + C-REACT PRTN (FOR INFLAMMATION) (10/27/2009 9:02 AM PST) + +-------+ + + + | Component | Value | Ref Range | Performed | Pathologist | | | | | At | Signature | + +-------+ + + + | C-REACTIVE | 0.5 | <0.6 mg/dl | [facility] | | | [facility] | | | [facility] | | | | | | LABORATORY | | + +-------+ + + + + + | Specimen | + + | Blood - Blood | + + + + + | Narrative | Performed At | + + + | Reference Range Change effective 12/21/08 | [facility] | | [facility] | [facility]IONAL | | [place] [place] [address] [facility] | LABORATORY | | [facility] [place] [address] | | + + + + + + + + | Performing | Address | City/State/Zipcode | Phone Number | | Organization | | | | + + + + + | [facility] | [address] | [place] [address] | | | LABORATORY | | | [...] | + + + + + | [facility] DEPARTMENT | [address] | [place] [address] | | | PATHOLOGY | [address] [...] | + + + + + | [facility] | [address] | [place] [address] | | | PATHOLOGY | [address] | | | + + + + + documented in this encounter Visit Diagnoses + + | Diagnosis | + + | Myalgia - Primary Mylagia and myositis, unspecified | + + | Vitamin d deficiency Unspecified vitamin D deficiency | + + | Muscle weakness Muscle weakness (generalized) | + + documented in this encounter
--- OUTSIDE RECORDS SUMMARY | ~2019-11-12 | XMS | Encounter Summary ---
Demographics + + + | Address | [address] | | | [place] [address] | + + + | Home Phone | | + + + | Preferred Language | Unknown | + + + | Marital Status | | + + + | Advent Affiliation | Unknown | + + + | Race | White | + + + | Ethnic Group | Not or | + + + Author + + + | Author | [facility] | + + + | Organization | [facility] | + + + | Address | Unknown | + + + | Phone | Unavailable | + + + Support + + +---------+ + | Name | Relationship | Address | Phone | + + +---------+ + | Kourtney Galeas | ECON | Unknown | | + + +---------+ + Care Team Providers + +------+ + | Care Tool Specialist Name | Role | Phone | [...] Fibromyalgia | | 2006 | Visit | [facility] & | [address] | Syndrome (Primary | | | | [address] | [place], [place] | Dx) | | | | [place] Mailcode: | [address] | | | | | [facility] | [phone] | | | | | Health and Healing, | | | | | | [address], | | | | | | Floor [place], [place] | | | | | | [address] | | | | | | [phone] | | | +--------+---------+ + + + [...]
--- OUTSIDE RECORDS SUMMARY | ~2019-11-12 | XMS | Encounter Summary ---
Demographics + + + | Address | [address] | | | [place] [address] | + + + | Home Phone | | + + + | Preferred Language | Unknown | + + + | Marital Status | | + + + | Restorationism Affiliation | Unknown | + + + | Race | White | + + + | Ethnic Group | Not or | + + + Author + + + | Author | [facility] | + + + | Organization | [facility] | + + + | Address | Unknown | + + + | Phone | Unavailable | + + + Support + + +---------+ + | Name | Relationship | Address | Phone | + + +---------+ + | Kourtney Galeas | ECON | Unknown | | + + +---------+ + Care Team Providers + +------+ + | Care Grain Scooper Name | Role | Phone | + +------+ + | Macho Graf MD | PCP | | + +------+ + Encounter Details +--------+ + + + + | Date | Type | Department | Care Team | Description | +--------+ + + + + | 10/23/ | Telephone | Neurology at | Karina Michelle MD | | | 2005 | | [facility] & | [address] | | | | | [address] | [address] | | | | | [place] Mailcode: | [place] [address] | | | | | [address] | [phone] | | | | | Health and Healing, | | | | | | | | | | | | Floor [place], [place] | | | | | | [address] | | | | | | [phone] | | | +--------+ + + + [...]
--- OUTSIDE RECORDS SUMMARY | ~2019-11-12 | XMS | Encounter Summary ---
Demographics + + + | Address | [address] | | | [place] [address] | + + + | Home Phone [...] + +------+ + | Care Public Health Inspector Name | Role | Phone | + +------+ + | Macho Graf MD | PCP | | + +------+ + Encounter Details +--------+ + + + + | Date | Type | Department | Care Team | Description | +--------+ + + + + | 11/10/ | Documentati | Neurology at | Alexey Read MD | | | 2008 | on | [facility] & | | | | | | [address] | | | | | | [place] Mailcode: | | | | | | [facility] | | | | | | Health and Healing, | | | | | | | | | | | | [place], [place] | | | | | | [address] | | | | | | [phone] | | | +--------+ + + + [...]
--- OUTSIDE RECORDS SUMMARY | ~2019-11-12 | XMS | Encounter Summary ---
Demographics + + + | Address | [address] | | | [place] [address] | + + + | Home Phone | | + + + | Preferred Language | Unknown | + + + | Marital Status | | + + + | Restorationist Affiliation | Unknown | + + + | Race | Unknown | + + + | Ethnic Group | Unknown | + + + Author + + + | Author | [facility] | | | and [place] | + + + | Organization | [facility] | | | and [place]his[place] | + + + | Address | Unknown | + + + | Phone | Unavailable | + + + Care Team Providers + +------+ + | Care Leak Patcher Name | Role | Phone | + +------+ + PCP | Unavailable | + +------+ + Encounter Details +--------+ + + + + | Date | Type | Department | Care Team | Description | +--------+ + + + + | 07/09/ | Hospital | [facility] | Yasir Pettit | [facility] NOS-unspec | | 2009 - | Encounter | [facility] | MD [place] [address] | | | | | [address] [place], [place] | | | 07/13/ | | [address] | [address] | | | 2009 | | [place], [place] | | | | | | [address] | Cara Dael MD | | | | | [phone] | [address] | | | | | | [place] [address] | | | | | | [phone] | | | | | | | [...] Performed At | + + + | [id number] [facility] | | | [facility] [address] | | | , | | | Diagnostic Outsourced Patient Name: RUCHI REYNOLDS Date of | | | : 1970 Medical Record: [id number] Account: | | | [id number] I/P/6RP [id number]/ Exam Date/Time: | | | 07/09/2010 02:08 [...] | | | 07/09/2010 06:40 P A [facility]/ccv/[id number]/ | | + + + + + | Procedure Note | + + | Ez Barron Conversion - 07/19/2019 9:05 PM PDT | | [id number] | | [facility] | | [facility] [address] | | , | | Diagnostic Outsourced | | | | Patient Name: RUCHI REYNOLDS | | Date of : 1970 | | Medical Record: [id number] | | Account: [id number] | | I/P/6RP [id number]/ | | | | | | Exam [...] | P | | A | | J/sophiav/[id number]/ | + + MRI Cervical Spine wo Contrast (07/09/2010 5:21 PM PDT) + + | Specimen | + + | | + + + + + | Narrative | Performed At | + + + | [id number] [facility] | | | [facility] [address] | | | , | | | Diagnostic Outsourced Patient Name: RUCHI REYNOLDS Date of | | | : 1970 Medical Record: [id number] Account: | | | [id number] I/P/6RP [id number]/ Exam Date/Time: | | | 07/09/2010 01:57 [...] 10:53 A | | | P A ANURADHA/ccv/[id number]/ | | + + + + + | Procedure Note | + + | AndersonEz mi Conversion - 07/19/2019 9:05 PM PDT | | [id number] | | [facility] | | [facility] [address] | | , | | Diagnostic Outsourced | | | | Patient Name: RUCHI REYNOLDS | | Date of : 1970 | | Medical Record: [id number] | | Account: [id number] | | I/P/6RP [id number]/ | | | | | | Exam [...] | P | | A | | ANURADHA/sophiav/[id number]/ | + + MRI Brain wo Contrast (07/09/2010 4:30 PM PDT) + + | Specimen | + + | | + + + + + | Narrative | Performed At | + + + | [id number] [facility] | | | [facility] [address] | | | , | | | Diagnostic Outsourced Patient Name: RUCHI REYNOLDS Date of | | | : 1970 Medical Record: [id number] Account: | | | [id number] I/P/6RP [id number]/ Exam Date/Time: | | | 07/09/2010 01:57 [...] | | | 07/09/2010 08:42 P A ANUR[facility]HA/ccv/[id number]/ | | + + + + + | Procedure Note | + + | Ez Barron - 07/19/2019 9:05 PM PDT | | [id number] | | [facility] | | [facility] [address] | | , | | Diagnostic Outsourced | | | | Patient Name: RUCHI REYNOLDS | | Date of : 1970 | | Medical Record: [id number] | | Account: [id number] | | I/P/6RP [id number]/ | | | | | | Exam [...] | P | | A | | ANURADHA/lenoa/[id number]/ | + + CT Head Cervical Spine wo Contrast (07/09/2010 11:31 AM PDT) + + | Specimen | + + | | + + + + + | Narrative | Performed At | + + + | [facility] [address] Ph: | | | Patient Name: RUCHI REYNOLDS Date of : | | | 1970 Medical Record: [id number] Account: [id number] | | | Exam Date/Time: 07/09/2010 11:11 [...] - 07/19/2019 9:05 PM PDT | | [facility] | | [facility] [address] | | | | | | Patient Name: RUCHI REYNOLDS | | Date of : 1970 | | Medical Record: [id number] | | Account: [id number] | | | | | | Exam [...] Performed At | + + + | [facility] [address] Ph: | | | Patient Name: RUCHI REYNOLDS Date of : | | | 1970 Medical Record: [id number] Account: [id number] | | | Exam Date/Time: 07/09/2010 09:23 [...] - 07/19/2019 9:05 PM PDT | | [facility] | | [facility] [address] | | | | | | Patient Name: RUCHI REYNOLDS | | Date of : 1970 | | Medical Record: [id number] | | Account: [id number] | | | | | | Exam [...]
--- OUTSIDE RECORDS SUMMARY | ~2019-11-12 | XMS | Clinical Summary ---
Demographics + + + | Address | [address] | | | [place] [address] | + + + | Home Phone | | + + + | Preferred Language | Unknown | + + + | Marital Status | | + + + | Catholic Affiliation | Unknown | + + + [...] Team Providers + +------+ + | Care Investigation Division Captain Name | Role | Phone | + +------+ + PCP | Unavailable | + +------+ + Source Comments [facility] is fully live on both [facility] and [facility] InPatient[facility] Allergies + + + + + + | Active Allergy | Reactions | Severity | Noted | Comments | | | | | Date | | + + + + + + | Codeine | | High | 12/26/19 | | | | | | 07 | | + + + + + + Medications + + + +---------+------+------+-------+ | Medication | Sig | Dispensed | Refills | Star | End | Statu | | | | | | t | Date | s | | | | | | Date | | | + + + +---------+------+------+-------+ | INSULIN 70/30 SC | None Entered | | 0 | | | Activ | | | | | | | | e | + + + +---------+------+------+-------+ | TOPAMAX 25 MG TAB | 2 tabs q am, 3 tabs | | 0 | | | Activ | | | q hs | | | | | e | + + + +---------+------+------+-------+ | UNIVASC OR | 30 mg qd | | 0 | | | Activ | | | | | | | | e | + + + +---------+------+------+-------+ | GABAPENTIN 100 MG | 2 tabs qid | | 0 | | | Activ | | TAB | | | | | | e | + + + +---------+------+------+-------+ | CYMBALTA 30 MG CAP | 3 caps qd | | 0 | | | Activ | | | | | | | | e | + + + +---------+------+------+-------+ | SEROQUEL 300 MG | take 1 tablet | | 0 | | | Activ | | TAB | (300mg) by oral | | | | | e | | | route once daily | | | | | | + + + +---------+------+------+-------+ | VICODIN HP 10 | take 1 tablet by | | 0 | | | Activ | | MG-660 MG TAB | oral route every 4-6 | | | | | e | | | hours as needed for | | | | | | | | pain | | | | | | + + + +---------+------+------+-------+ | alprazolam (XANAX) | Take 1 mg by mouth | | 0 | | | Activ | | 1 mg Oral Tablet | as needed. | | | | | e | + + + +---------+------+------+-------+ | levothyroxine 75 | Take 75 mcg by mouth | | 0 | | | Activ | | mcg Oral Tablet | once daily. | | | | | e | + + + +---------+------+------+-------+ | Albuterol, Refill, | Inhale. | | 0 | | | Activ | | 90 mcg/Actuation | | | | | | e | | Inhalation Aerosol | | | | | | | + + + +---------+------+------+-------+ | pregabalin | Take by mouth two | | 0 | | | Activ | | (LYRICA) 75 mg Oral | times daily. Max: | | | | | e | | Capsule | 600 mg/day | | | | | | + + + +---------+------+------+-------+ | tizanidine | Take 4 mg by mouth | | 0 | | | Activ | | (ZANAFLEX) 4 mg Oral | every six hours as | | | | | e | | Tablet | needed. Max: 36 mg / | | | | | | | | day. | | | | | | + + + +---------+------+------+-------+ | metoprolol 25 mg | Take 25 mg by mouth | | 0 | | | Activ | | Oral Tablet | two times daily. | | | | | e | + + + +---------+------+------+-------+ | promethazine | Take 25 mg by mouth | | 0 | | | Activ | | (PHENERGAN) 25 mg | four times daily as | | | | | e | | Oral Tablet | needed for | | | | | | | | nausea/vomiting. | | | | | | + + + +---------+------+------+-------+ | immune globulin, | Inject into the | | 0 | | | Activ | | IGG, 10 % | vein (IV) once. | | | | | e | | Intravenous | | | | | | | | Injectable | | | | | | | + + + +---------+------+------+-------+ | lansoprazole | Take 30 mg by mouth | | 0 | | | Activ | | (PREVACID) [...] | | | | + + + +---------+------+------+-------+ | ergocalciferol | Take 1 Cap by mouth | 5 | 3 | 12/0 | | Activ | | (VITAMIN D) 50,000 | every seven days. | | | 08/14 | | e | | unit Oral Capsule | | | | 09 | | | + + + +---------+------+------+-------+ Active Problems + + + | Problem [...] | + + Last Filed Vital Signs + [...] | | + + + + + Plan of Treatment + + + + + | Health Maintenance | Due Date | Last Done | Comments | + + + + + | Influenza (Flu) | | | | | vaccination (#1) | 9 | | | + + + + + | Pneumococcal | Aged Out | | No longer eligible | | vaccination | | | based on patient's | | | | | age to complete this | | | | | topic | + + + + + Results Not on filefrom Last 3 Months Insurance + +--------+ +--------+ + +--------+ | Payer | Benefi | Subscriber | Effect | Phone | Address | Type | | | t Plan | ID | lary | | | | | | / | | Dates | | | | | | Group | | | | | | + +--------+ +--------+ + +--------+ | MEDICARE | MEDICA | xxxxxxxxxx | 04/25/20 | [id number] | [address] | Medica | | | RE A & | | 08-Pre | 1 | [phone] | [address] | | | B | | sent | | [place] | | | | | | | | [phone] | | + +--------+ +--------+ + +--------+ + +--------+ +--------+ + + | Guarantor Name | Accoun | Relation to | Date | Phone | Billing Address | | | t Type | Patient | of | | | | | | | | | | + +--------+ +--------+ + + | Ruchi Reynolds | Person | Self | [birth year] | | [address] | | [place] | al/Fam | | 1970 | [phone] | [place] [address] | | | [place]lin | | | 7 (Home) | | + +--------+ +--------+ + + | [id number] | Indust | Other | [birth year] | | [address] | | | rial | | 1876 | [phone] | [place] [address] | | | | | | 5 (Home) | | + +--------+ +--------+ + + | RUCHI REYNOLDS | Grzegorz | Self | [birth year] | [address] | | [address] | micah | | 1970 | [phone] | [place] [address] | | | [place] | | | 7 (Home) | | | | g | | | | | + +--------+ +--------+ + + Advance Directives + + + + + | Type | Date Recorded | Patient | Explanation | | | | Domestic Travel Consultant | | + + + + + | Advance | | | | | Directives and | | | | | Living Will | | | | + + + + + | Power of | | | | | Local Operator | | | | + + + + +
--- OUTSIDE RECORDS SUMMARY | ~2019-11-12 | XMS | Encounter Summary ---
Demographics + + + | Address | [address] | | | [place] [address] | + + + | Home Phone | | + + + | Preferred Language | Unknown | + + + | Marital Status | | + + + | Jain Affiliation | Unknown | + + + | Race | White | + + + | Ethnic Group | Not or | + + + Author + + + | Author | [facility] | + + + | Organization | [facility] | + + + | Address | Unknown | + + + | Phone | Unavailable | + + + Support + + +---------+ + | Name | Relationship | Address | Phone | + + +---------+ + | Kourtney Galeas | ECON | Unknown | | + + +---------+ + Care Team Providers + +------+ + | Care Detective Private Eye Name | Role | Phone | + [...] (Primary | | 2008 | Visit | [facility] & | | Dx); Vitamin D | | | | Healing [address] | | deficiency; Muscle | | | | [place] Mailcode: | | weakness | | | | [facility] | | | | | | Health and Healing, | | | | | | Building | | | | | | Floor [place], [place] | | | | | | [address] | | | | | | [phone] | | | +--------+---------+ + + + [...] Alexey Read MD - 10/27/2009 8:52 AM [facility] FELLOW CONSULTATION NOTE Tosin Ana [...] 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 COORDINATION - Iqovfx-dsgf-trjnxo and heel-taveras tests are normal bilaterally. GAIT/STATION - Gait is normal. REVIEW OF ANCILLARY DATA / MEDICAL RECORDS: I reviewed the results of the previous [facility] evaluation as well as the pathologist report [...] abnormalities." I also reviewed notes from her passenger service manager Dr. Maguire, and her PCP Dr. Graf. [...] a muscle biopsy as part of her [facility] evaluation. Hopefully, we can settle the question as to whether or not this represents polymyositis or less likely dermat omyositis. Currently, the diagnosis is not at all secure and it is quite possible that she does not have a primary neuromuscular disorder. Other possibilities would include vitamin D deficiency or obstructive sleep apnea. RECOMMENDATIONS/PLAN: - EMG/NCS - muscle biopsy Alexey Read MD [facility] Neuromuscular Fellow I spent 80 minutes with [...] | | | | | | Laboratories,[address] | | | | | | [place] [address] | | | | | | [phone]. | | | | | | Charisse [...] [facility] | [address] | [place], [place] | | | [facility] | | [address] | | + + + + + [...] | | | | | Shadia Reyna, [facility] [place] | | | | | | [address] | | | | | | [phone]. | | | | | | [...] [facility] | [address] | [place], [place] | | | [facility] | | [address] | | + + + + + [...] [facility] | REGIONAL | | [place] [address] | LABORATORY | | [place] [address] | | + + + + + + + + | Performing | Address | City/State/Zipcode | Phone Number | | Organization | | | | + + + + + | [facility] | [address] | [place] [address] | | | LABORATORY | | | [...] | + + + + + | [facility] DEPARTMENT | [address] | [place] [address] | | | PATHOLOGY | [address] [...] + | [facility] | [address] | [place] [address] | | | PATHOLOGY | [address] [...]
--- OUTSIDE RECORDS SUMMARY | ~2019-11-12 | XMS | Clinical Summary ---
Demographics + + + | Address | [address] | | | [place] [address] | + + + | Home Phone | | + + + | Preferred Language | Unknown | + + + | Marital Status | | + + + | Anglican Affiliation | Unknown | + + + [...] Team Providers + +------+ + | Care Manager Php Name | Role | Phone | + +------+ + PCP | Unavailable | + +------+ + Source Comments [facility] is [facility] and [facility] Allergies + + + + + [...] | | | | | | | [address] | | + +--------+ +--------+ + +--------+ [...] Hali | al/Fam | | 1970 | [phone] | [place] [address] | | | [place] | | | 7 (Home) | | + +--------+ +--------+ + + | [id number] | Indust | Other | [birth year] | | [address] | | | rial | | 1876 | [phone] | [place] [address] | | | | | | 5 (Home) | | + +--------+ +--------+ + + | RUCHI REYNOLDS | Grzegorz | Self | [birth year] | [address] | | [address] | micah | | 1970 | [phone] | [place] [address] | | | [place] | | | 7 (Home) | | | | g | | | | | + +--------+ +--------+ + + Advance Directives + + + + + | Type | Date Recorded | Patient | Explanation | | | | Lead Miner | | + + + + + | Advance | | | | | Directives and | | | | | Living Will | | | | + + + + + | Power of | | | | | Adjuster Piano Action | | | | + + + + +
--- OUTSIDE RECORDS SUMMARY | ~2019-11-12 | XMS | Encounter Summary ---
Demographics + + + | Address | [address] | | | [place] [address] | + + + | Home Phone [...] Team Providers + +------+ + | Care Skimmer Name | Role | Phone | + +------+ + | Macho Graf MD | PCP | | + +------+ + Encounter Details +--------+ + + + + | Date | Type | Department | Care Team | Description | +--------+ + + + + | 10/31/ | Telephone | Neurology at | Paul Nayak, | | | 2008 | | [facility] & | | | | | | Healing [address] | | | | | | [place]ie [place] Mailcode: | | | | | | [facility] | | | | | | Health and Healing, | | | | | | [facility] | | | | | | [place], [place] | | | | | | [address] | | | | | | [phone] | | | +--------+ + + + [...]
--- OUTSIDE RECORDS SUMMARY | ~2019-11-12 | XMS | Encounter Summary ---
Demographics + + + | Address | [address] | | | [place] [address] | + + + | Home Phone | | + + + | Preferred Language | Unknown | + + + | Marital Status | | + + + | Sabianism Affiliation | Unknown | + + + | Race | White | + + + | Ethnic Group | Not or | + + + Author + + + | Author | [facility] | + + + | Organization | [facility] | + + + | Address | Unknown | + + + | Phone | Unavailable | + + + Support + + +---------+ + | Name | Relationship | Address | Phone | + + +---------+ + | Kourtney Galeas | ECON | Unknown | | + + +---------+ + Care Team Providers + +------+ + | Care Yard Crane Operator Name | Role | Phone | + +------+ + | Macho Graf MD | PCP | | + +------+ + Encounter Details +--------+ + + + + | Date | Type | Department | Care Team | Description | +--------+ + + + + | 10/31/ | Telephone | Neurology at | Paul Nayak, | | | 2008 | | [facility] & | | | | | | Healing [address] | | | | | | [place] Mailcode: | | | | | | [facility] | | | | | | Health and Healing, | | | | | | [facility] | | | | | | [place], [place] | | | | | | [address] | | | | | | [phone] | | | +--------+ + + + [...]
--- OUTSIDE RECORDS SUMMARY | ~2019-11-12 | XMS | Encounter Summary ---
Demographics + + + | Address | [address] | | | [place] [address] | + + + | Home Phone | | + + + | Preferred Language | Unknown | + + + | Marital Status | | + + + | Congregational Affiliation | Unknown | + + + | Race | White | + + + | Ethnic Group | Not or | + + + Author + + + | Author | [facility] | + + + | Organization | [facility] | + + + | Address | Unknown | + + + | Phone | Unavailable | + + + Support + + +---------+ + | Name | Relationship | Address | Phone | + + +---------+ + | Kourtney Galeas | ECON | Unknown | | + + +---------+ + Care Team Providers + +------+ + | Care Tawer Name | Role | Phone | + [...] | [address] | [place], | | | | | [place] Mailcode: | [place] [address] | | | | | [address] Outpatient | [phone] | | | | | Clinic Building | | | | | | [place], [place] | | | | | | [address] | | | | | | [phone] | | | +--------+ + + + [...]
[~2019-11-12 18:07] MED LIST changes: +CELECOXIB200 MG PO; +HYDROCODON-ACE1 EA11 PO; +SENNA LAX8.6 MG PO
--- OUTSIDE RECORDS SUMMARY | 2019-11-12 18:10 | XMS ---
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 Amy VISIT COUNT (12 MO.) 1 PATSY Bustos TOTAL 1 NOTE: Visits indicate total known visits. ED/UCC VISIT TRACKING (12 MO.) 11/12/2019 18:09 PATSY Terry [place] TYPE: Emergency COMPLAINT: - MEDICAL CLEARANCE INPATIENT VISIT TRACKING (12 MO.) No inpatient visits to display in this time frame [email or web address]
[2019-11-12] MEDS ORDERED: CLEOCIN HCL300 MG PO (18:35)
== END 2019-11-12 20:45 | disposition home or self-care (01) ==
LOC: ED 18:07
DX: S51.812D Laceration without foreign body of left forearm, subsequent encounter (principal); G43.909 Migraine, unspecified, not intractable, without status migrainosus; F41.9 Anxiety disorder, unspecified; F17.200 Nicotine dependence, unspecified, uncomplicated; X78.1XXD Intentional self-harm by knife, subsequent encounter
CPT/HCPCS: 80053; 80176; 81001; 84443; 85025; 99283; G0480

== ENCOUNTER 2025-03-16 16:44 | Inpatient (IN) | payer MEDICARE, OTHER ==
[~2025-03-16] VITALS: Ht 165.1 cm; Wt 104.7 kg
[~2025-03-16 16:44] MED LIST changes: +ALPRAZOLAM1 MG PO; +AMLODIPINE BESYL5 MG PO; +ARTHRITIS PAIN650 MG PO; +CEFDINIR300 MG PO; +CLEOCIN HCL300 MG PO; +CLONAZEPAM1 MG PO; +CYMBALTA60 MG PO; +DULOXETINE HCL60 MG PO; +EZETIMIBE10 MG PO; +FLONASE ALLERG9.9 ML NAS; +KEPPRA XR500 MG PO; +LOSARTAN POTAS100 MG PO; +METHYL B12-MET1 EACH PO; -METOPROLOL SUCC25 MG PO; +METOPROLOL TART25 MG PO; +NYSTATIN15 GM TOP; +OXYCODONE HCL5 MG PO; +PIOGLITAZONE HC30 MG PO; +PRAZOSIN HCL2 MG PO; +PREGABALIN100 MG PO; +PRILOSEC OTC20 MG PO; +TACROLIMUS30 G1 TOP; +TIZANIDINE HCL4 MG PO; +TRIAMCINOLONE A15 G1 TOP; +TUMS200 MG PO; +VENTOLIN HFA18 GM INH; -[UNRECOGNIZED DRUG - OTHER] PO
[2025-03-16] MEDS ORDERED: HYDROmorphone HCL 1 MG/ML SYR IV PRN ×2 (17:00→19:15)
[2025-03-16] MEDS ORDERED: SODIUM CHLORIDE 0.9% 1,000 ML IV ONE (17:00)
[2025-03-16] MEDS ORDERED: ondansetron HCL 4 MG/2 ML VIAL IV ONE (17:00)
[2025-03-16 17:12] LABS: BASOPHILS 0.4 % (0-2); EOSINOPHILS 1.1 % (0-6); HEMATOCRIT 45.5 % (35.0-50.0); HEMOGLOBIN 15.8 g/dL (12.0-18.0); LYMPHOCYTES 23.2 % (24-44); MCHC 34.7 g/dl (30-36); MCV 95.1 fl (81-99); MONOCYTES 6.2 % (0-12); NEUTROPHILS 69.1 % (39-80); PLATELET COUNT 157 K/uL (140-440); RBC 4.78 M/ul (4.3-5.7); RDW 15.3 (10.5-15.0)
[2025-03-16 17:28] LABS: ALBUMIN 3.4 g/dL (3.4-5.0); ALBUMIN/GLOBULIN RATIO 0.92 (1.1-2.4); ALKALINE PHOSPHATASE 124 U/L (46-116); ALT (SGPT) 73 U/L (14-59); ANION GAP 8.9 (7-21); AST (SGOT) 45 U/L (15-37); BILIRUBIN, TOTAL 0.8 mg/dL (0.2-1.0); BUN/CREATININE RATIO 15.15 (6.0-28.6); CALCIUM 8.9 mg/dL (8.5-10.1); CARBON DIOXIDE 33 mmol/L (21-32); CHLORIDE 100 mmol/L (98-107); CREATININE, SERUM 0.66 mg/dL (0.55-1.02); GLOMERULAR FILTRATION RATE,EST 104 mL/min (>60); POTASSIUM 3.9 mmol/L (3.5-5.1); PROTEIN, TOTAL 7.1 g/dL (6.4-8.2); UREA NITROGEN 10 mg/dL (7-18)
[2025-03-16] MEDS ORDERED: LACTATED RINGER'S 1,000 ML IV SCH ×2 (19:00→19:30)
[2025-03-16] MEDS ORDERED: DEXTROSE 50% 50 ML SYR IV PRN ×2 (19:00)
[2025-03-16] MEDS ORDERED: GLUCAGON,HUMAN RECOMBINANT 1 MG/ML VIAL SUB-Q PRN (19:00)
[2025-03-16] MEDS ORDERED: IBLOOD GLUCOSE TEST STRIP 1 EA TEST XX PRN (19:00)
[2025-03-16] MEDS ORDERED: DEXTROSE 5% 1,000 ML IV PRN (19:00)
[2025-03-16] MEDS ORDERED: PROCHLORPERAZINE EDISYLATE 10 MG/2 ML VIAL IV PRN (19:00)
[2025-03-16] MEDS ORDERED: ondansetron HCL 4 MG/2 ML VIAL IV PRN (19:00)
[2025-03-16] MEDS ORDERED: NICOTINE 14 MG/24 HR 1 EA TDSY TD SCH (19:13)
[2025-03-16 19:46] VITALS: BP 148/66
[2025-03-16 19:54] LABS: BILIRUBIN, URINE NEGATIVE (negative); BLOOD/HGB, URINE NEGATIVE (Negative); KETONE, URINE NEGATIVE (Negative); LEUK ESTERASE, URINE NEGATIVE (negative); NITRITE, URINE NEGATIVE (negative); PH, URINE 5.5 (5-7)
[2025-03-16] MEDS ORDERED: IBLOOD GLUCOSE TEST STRIP 1 EA TEST VI SCH (20:00)
[2025-03-16] MEDS ORDERED: Insulin Regular, Human 100 UNIT/ML ML SUB-Q SCH (20:00)
[2025-03-16] MEDS ORDERED: PRAZOSIN HCL 1 MG CAP PO SCH (21:00)
[2025-03-16] MEDS ORDERED: PANTOPRAZOLE SODIUM 40 MG/10 ML VIAL IV SCH (21:00)
[2025-03-16] MEDS ORDERED: LORazepam 2 MG/ML VIAL IV/IM PRN (21:45)
[2025-03-16] MEDS ORDERED: LORazepam 1 MG TAB PO PRN (21:45)
[2025-03-17] VITALS (10 sets, daily range): BP systolic 118–161; BP diastolic 60–74
[2025-03-17 05:44] LABS: BASOPHILS 0.3 % (0-2); EOSINOPHILS 1.6 % (0-6); HEMATOCRIT 40.4 % (35.0-50.0); LYMPHOCYTES 26.7 % (24-44); MCH 33.3 (27-36); MCHC 34.7 g/dl (30-36); MONOCYTES 8.3 % (0-12); NEUTROPHILS 63.1 % (39-80); PLATELET COUNT 95 K/uL (140-440); RDW 15.4 (10.5-15.0)
[2025-03-17 05:57] LABS: ALBUMIN 2.7 g/dL (3.4-5.0); ALKALINE PHOSPHATASE 115 U/L (46-116); ALT (SGPT) 96 U/L (14-59); AST (SGOT) 97 U/L (15-37); BILIRUBIN, TOTAL 0.7 mg/dL (0.2-1.0); BUN/CREATININE RATIO 14.81 (6.0-28.6); CALCIUM 7.9 mg/dL (8.5-10.1); CARBON DIOXIDE 33 mmol/L (21-32); CHLORIDE 104 mmol/L (98-107); CREATININE, SERUM 0.54 mg/dL (0.55-1.02); GLOMERULAR FILTRATION RATE,EST 109 mL/min (>60); MAGNESIUM 1.6 mg/dL (1.8-2.4); PHOSPHORUS, INORGANIC 3.5 mg/dL (2.5-4.9); PROTEIN, TOTAL 5.7 g/dL (6.4-8.2); UREA NITROGEN 8 mg/dL (7-18)
[2025-03-17] MEDS ORDERED: MAGNESIUM SULFATE 2 GM/50 ML BAG IV SCH (07:45)
[2025-03-17] MEDS ORDERED: THIAMINE HCL 500 MG in DEXTROSE 5% 100 ML IV SCH (09:00)
[2025-03-17] MEDS ORDERED: ENOXAPARIN SODIUM 40 MG/0.4 ML SYR SUB-Q SCH (09:00)
[2025-03-17] MEDS ORDERED: THIAMINE HCL 200 MG/2 ML VIAL IV SCH (09:00)
[2025-03-17] MEDS ORDERED: Insulin Regular, Human 100 UNIT/ML ML SUB-Q SCH (12:00)
[2025-03-17] MEDS ORDERED: PHARMACY RENAL DOSE ADJUSTMENT 1 DOSE MISC PO SCH (12:00)
[2025-03-17] MEDS ORDERED: IBLOOD GLUCOSE TEST STRIP 1 EA TEST VI SCH (12:00)
[2025-03-17] MEDS ORDERED: SULFAMETHOXAZO1 EAC1 PO (16:18)
[2025-03-17] MEDS ORDERED: DOXYCYCLINE HY100 MG PO (16:18)
[2025-03-17] MEDS ORDERED: PRAZOSIN HCL 1 MG CAP PO SCH ×2 (21:00)
[2025-03-17] MEDS ORDERED: DULOXETINE HCL 60 MG CAP PO SCH (21:00)
[2025-03-17] MEDS ORDERED: clonazePAM 1 MG TAB PO SCH (21:00)
[2025-03-17] MEDS ORDERED: PREGABALIN 100 MG CAP PO SCH (21:00)
[2025-03-18 05:35] VITALS: BP 147/73
[2025-03-18 05:36] LABS: BASOPHILS 0.3 % (0-2); EOSINOPHILS 1.3 % (0-6); HEMATOCRIT 37.6 % (35.0-50.0); HEMOGLOBIN 12.9 g/dL (12.0-18.0); LYMPHOCYTES 31.4 % (24-44); MCH 32.7 (27-36); MCHC 34.3 g/dl (30-36); MCV 95.5 fl (81-99); MONOCYTES 7.2 % (0-12); NEUTROPHILS 59.8 % (39-80); PLATELET COUNT 88 K/uL (140-440); RBC 3.94 M/ul (4.3-5.7); RDW 15.3 (10.5-15.0)
[2025-03-18 05:39] VITALS: BP 147/73
[2025-03-18] MEDS ORDERED: LEVOTHYROXINE SODIUM 75 MCG TAB PO SCH (06:00)
[2025-03-18 06:01] LABS: ALBUMIN 2.6 g/dL (3.4-5.0); ALBUMIN/GLOBULIN RATIO 0.87 (1.1-2.4); BILIRUBIN, TOTAL 0.9 mg/dL (0.2-1.0); BUN/CREATININE RATIO 8.69 (6.0-28.6); CALCIUM 8.4 mg/dL (8.5-10.1); CREATININE, SERUM 0.46 mg/dL (0.55-1.02); MAGNESIUM 1.8 mg/dL (1.8-2.4); PROTEIN, TOTAL 5.6 g/dL (6.4-8.2)
[2025-03-18 08:57] VITALS: BP 153/86
[2025-03-18] MEDS ORDERED: VALACYCLOVIR HCL 500 MG TAB PO SCH (09:00)
[2025-03-18 09:52] VITALS: BP 153/86
[2025-03-18] MEDS ORDERED: ONDANSETRON ODT8 MG PO (11:17)
[2025-03-18] MEDS ORDERED: OXYCODONE HCL5 MG PO (11:18)
[2025-03-18 12:05] VITALS: BP 173/80
[2025-03-18] MEDS ORDERED: PANTOPRAZOLE SODIUM 40 MG TABEC PO SCH (21:00)
== END 2025-03-18 12:10 | disposition home or self-care (01) | DRG 440 ==
LOC: ED 16:44 → MS 19:28
PROVIDERS: Emergency Medicine; ADMIT Family Medicine; ATTEND Family Medicine
PROC: HZ2ZZZZ Detoxification Services for Substance Abuse Treatment (ICD-10-PCS; principal; 2025-03-17)
DX: K85.20 Alcohol induced acute pancreatitis without necrosis or infection (principal); F41.9 Anxiety disorder, unspecified; G43.909 Migraine, unspecified, not intractable, without status migrainosus; F32.A Depression, unspecified; I10 Essential (primary) hypertension; E11.9 Type 2 diabetes mellitus without complications; E03.9 Hypothyroidism, unspecified; K86.0 Alcohol-induced chronic pancreatitis; F17.210 Nicotine dependence, cigarettes, uncomplicated; Z96.651 Presence of right artificial knee joint; Z96.662 Presence of left artificial ankle joint; Z96.611 Presence of right artificial shoulder joint; G47.00 Insomnia, unspecified; L98.9 Disorder of the skin and subcutaneous tissue, unspecified; K74.60 Unspecified cirrhosis of liver; F10.20 Alcohol dependence, uncomplicated; E83.42 Hypomagnesemia; D69.6 Thrombocytopenia, unspecified; Y90.0 Blood alcohol level of less than 20 mg/100 ml; Z79.890 Hormone replacement therapy; Z90.710 Acquired absence of both cervix and uterus; Z87.59 Personal history of other complications of pregnancy, childbirth and the puerperium; Z90.49 Acquired absence of other specified parts of digestive tract; Z98.1 Arthrodesis status; Z79.4 Long term (current) use of insulin; Z79.899 Other long term (current) drug therapy; Z79.51 Long term (current) use of inhaled steroids; Z88.2 Allergy status to sulfonamides; Z88.5 Allergy status to narcotic agent; Z88.8 Allergy status to other drugs, medicaments and biological substances; Z88.7 Allergy status to serum and vaccine
CPT/HCPCS: 36415; 74177; 80053; 80061; 81003; 83036; 83690; 83735; 84100; 85025; G0480; J0780; J1171; J1815; J2405; J2470; J3411; J3475; J7030; J7060; J7121; Q9967

== ENCOUNTER 2025-11-17 22:25 | Inpatient (IN) | payer MEDICARE, OTHER ==
[~2025-11-17] VITALS: Ht 165.1 cm; Wt 112.9 kg
[~2025-11-17 22:25] MED LIST changes: +CEFUROXIME500 MG PO; +DICLOFENAC SODI75 MG PO; +LANTUS100 UNITS/ SUB-Q; +NORVASC5 MG PO; +ONDANSETRON ODT8 MG PO; +SULFAMETHOXAZO1 EAC1 PO; +SYNTHROID75 MCG PO
[2025-11-17 23:11] LABS: BASOPHILS 0.2 % (0.1-1.2); EOSINOPHILS 0.1 % (0.7-5.8); LYMPHOCYTES 18.9 % (19.3-51.7); MCH 32.9 PG (25.6-32.2); MCHC 35.0 g/dL (32.2-35.5); MCV 94.0 fL (79.4-94.8); MONOCYTES 6.5 % (4.7-12.5); NEUTROPHILS 73.6 % (34.0-71.1); RBC 4.80 M/uL (3.93-5.22)
[2025-11-17] MEDS ORDERED: LACTATED RINGER'S 1,000 ML IV ONE (23:15)
[2025-11-17] MEDS ORDERED: FAMOTIDINE 20 MG/ 2 ML VIAL IV ONE (23:15)
[2025-11-17] MEDS ORDERED: KETOROLAC TROMETHAMINE 30 MG/ML VIAL IV ONE (23:15)
[2025-11-17] MEDS ORDERED: THIAMINE HCL 200 MG/2 ML VIAL IV ONE (23:30)
[2025-11-17 23:32] LABS: ALT (SGPT) 55 U/L (14-59); AST (SGOT) 39 U/L (15-37); GLOMERULAR FILTRATION RATE,EST 105 mL/min (>60); PROTEIN, TOTAL 7.7 g/dL (6.4-8.2); UREA NITROGEN 17 mg/dL (7-18)
[2025-11-17 23:48] LABS: BLOOD/HGB, URINE NEGATIVE (Negative); KETONE, URINE SMALL (Negative); LEUK ESTERASE, URINE NEGATIVE (negative); NITRITE, URINE NEGATIVE (negative)
[2025-11-18] VITALS (7 sets, daily range): BP systolic 156–177; BP diastolic 72–81
[2025-11-18 00:03] LABS: AMPHETAMINES, URINE NEGATIVE (NEGATIVE); BARBITURATES, URINE NEGATIVE (NEGATIVE); BENZODIAZEPINE, URINE POSITIVE (NEGATIVE); CANNABINOID, URINE POSITIVE (NEGATIVE); COCAINE, URINE NEGATIVE (NEGATIVE); ECSTASY, URINE NEGATIVE (NEGATIVE); FENTANYL, URINE NEGATIVE (NEGATIVE); METHADONE, URINE NEGATIVE (NEGATIVE); OPIATES, URINE NEGATIVE (NEGATIVE); OXYCODONE, URINE NEGATIVE (NEGATIVE); PHENCYCLIDINE, URINE NEGATIVE (NEGATIVE)
[2025-11-18 00:05] LABS: LACTIC ACID, BLOOD 1.2 mmol/L (0.4-2.0)
[2025-11-18 00:11] LABS: CHOLESTEROL/HDL RATIO 4.8; LDL CHOLESTEROL 101.0 mg/dL (< 129); NON-HDL CHOLESTEROL 121.0; VLDL CHOLESTEROL 20.0
[2025-11-18] MEDS ORDERED: METOCLOPRAMIDE HCL 10 MG/2 ML SDV IV ONE (00:15)
[2025-11-18] MEDS ORDERED: HYDROmorphone HCL 1 MG/ML SYR IV PRN ×3 (00:15→08:15)
[2025-11-18] MEDS ORDERED: LACTATED RINGER'S 1,000 ML IV SCH ×3 (00:15→08:15)
[2025-11-18 06:19] LABS: BASOPHILS 0.2 % (0.1-1.2); EOSINOPHILS 0.1 % (0.7-5.8); LYMPHOCYTES 15.5 % (19.3-51.7); MCH 32.5 PG (25.6-32.2); MCHC 34.3 g/dL (32.2-35.5); MCV 94.7 fL (79.4-94.8); MONOCYTES 7.6 % (4.7-12.5); NEUTROPHILS 76.1 % (34.0-71.1); RBC 4.71 M/uL (3.93-5.22)
[2025-11-18 06:40] LABS: ALT (SGPT) 59.0 U/L (14-59); AST (SGOT) 43.0 U/L (15-37); GLOMERULAR FILTRATION RATE,EST 104.0 mL/min (>60); PROTEIN, TOTAL 6.9 g/dL (6.4-8.2); UREA NITROGEN 19.0 mg/dL (7-18)
--- NOTE | 2025-11-18 06:40 | NUR ---
PATIENT ARRIVED TO CCU ROOM 126 A MED-SURG HOUSE CONV. PATIENT DROWSY, BUT AWAKENS TO VERBAL STIMULI. PATIENT TRANSFERED FROM STRETCHER TO BED WITH STAND PIVOT USING PATIENT CANE. PATIENT STEADY ON FEET. PATIENT ON ROOM AIR, SPO2 95%. PATIENT STATES SHE IS A DM2 AND IS INSULIN DEPENDENT. PATIENT BLOOD PRESSURE NOTED TO BE ELEVATED AND STATES SHE TAKES BLOOD PRESSURE MEDICATIONS AT HOME. PATIENT 20G LEFT FOREARM IV WNL, LR INFUSING PER EMAR. PATIENT ARMS NOTED TO HAVE SOME SCATTERED BRUISING. THIS RN REMAINS IN ROOM TO COMPLETE ADMISSION.
[2025-11-18] MEDS ORDERED: ACETAMINOPHEN 325 MG TAB PO PRN (08:15)
[2025-11-18] MEDS ORDERED: GLUCAGON,HUMAN RECOMBINANT 1 MG/ML VIAL SUB-Q PRN (08:15)
[2025-11-18] MEDS ORDERED: KETOROLAC TROMETHAMINE 30 MG/ML VIAL IV PRN (08:15)
[2025-11-18] MEDS ORDERED: DEXTROSE 50% 50 ML SYR IV PRN ×2 (08:15)
[2025-11-18] MEDS ORDERED: DEXTROSE 5% 1,000 ML IV PRN (08:15)
[2025-11-18] MEDS ORDERED: IBLOOD GLUCOSE TEST STRIP 1 EA TEST XX PRN (08:15)
--- NOTE | 2025-11-18 08:15 | NUR ---
RECEVIED REPORT FROM NIGHT RN - MARYANN. PT CALL LIGHT ON THIS MORNING, PT REQUESTING SOMETHING FOR PAIN 06/03, AND NAUSEA 09/03 SHE STATES. MEDS GIVEN - SEE JAN. PT IS SLEEPY BUT ABLE TO AWAKEN AND ANSWER QUESTIONS APPROPRIATELY, PT DENIES EVER BEING HOSPITALIZED FOR ETOH WITHDRAWL, HAS BEEN IN FOR PANCREATITIS BUT DENIES ETOH WITHDRAWLS WITH ADMISSIONS. VS STABLE, BP ELEVATED - WILL DISCUSS WITH MD, PT STATES LAST TOOK HTN MEDS YESTERDAY MORNING. LAST DRINK WAS 4PM YESTERDAY - 2 SHOTS OF WHISKEY. BED ALARM IN PLACE, CALL LIGHT WITHIN REACH. PT DENIES ANY TOHER NEEDS AT THIS TIME. ASSESSMENT COMPLETED.
[2025-11-18] MEDS ORDERED: IBLOOD GLUCOSE TEST STRIP 1 EA TEST VI SCH ×3 (08:45→14:00)
[2025-11-18] MEDS ORDERED: INSULIN LISPRO 100 UNIT/ML ML SUB-Q SCH ×2 (08:45→12:00)
--- NOTE | 2025-11-18 09:17 | NUR ---
NOTIFIED OF BLOOD SUGAR OF 400, VERIFIED INSULIN ORDERS WELL, PT NPO, CHANGE TO Q6HRS AND ALSO TO REGULAR INSULIN WITH SLIDING SCALE. NO ADDITIONAL ORDERS FOR INSULIN, JUST FOLLOW SLIDING SCALE AT THIS TIME. ORDERS UPDATED.
[2025-11-18] MEDS ORDERED: Insulin Regular, Human 100 UNIT/ML ML SUB-Q SCH (09:30)
[2025-11-18] MEDS ORDERED: FOLIC ACID 1 MG/0.2 ML ML IV SCH (10:58)
[2025-11-18] MEDS ORDERED: THIAMINE HCL 200 MG/2 ML VIAL IV SCH (10:58)
[2025-11-18] MEDS ORDERED: LORazepam 2 MG/ML VIAL IV/IM PRN (11:00)
[2025-11-18] MEDS ORDERED: LABETALOL HCL 20 MG/4 ML VIAL IV PRN (11:15)
[2025-11-18] MEDS ORDERED: PHARMACY RENAL DOSE ADJUSTMENT 1 DOSE MISC PO SCH (12:00)
--- NOTE | 2025-11-18 14:39 | NUR ---
PT RESTING IN BED, IV FLUIDS RESTARTED, NEW IV STARTED. (L) FOREARM INFILTRATED WITH LR, WARM COMPRESS APPLIED TO HELP WITH INFILTRATION. PT RESTING STATES HER HEADACHE AND NAUSEA ARE IMPROVED, FEELS MUCH BETTER. STILL C/O 7/10 PAIN BUT FALLS ASLEEP QUICKLY BEFORE CONVERSATION ENDS AND THIS RN LEAVES THE ROOM. PT SNORING WHILE IN ROOM STILL, MD NOTIFIED AND WILL HOLD ON PAIN MEDS AT THIS TIME DUE TO SEVERE DROWSINESS. SATS 94% ON RA AT THIS TIME, CONTINUOUS MONITORING IN PLACE.
--- NOTE | 2025-11-18 15:15 | NUR ---
CIWA CURRENTLY 1 AT THIS TIME, NO INTERVENTIONS REQUIRED. PT AMBULATED TO BATHROOM, STEADY GAIT WITH CANE - WHICH IS PATIENT BASELINE. PT WAS EDUCATED ON ADVANCING DIET TO CLEARS PER MD RECOMMENDATION FOR DINNER, PT DOES NOT FEEL SHE IS QUITE AT THAT POINT AND DUE TO PAIN STAYING 6/10 AT THIS TIME. I WILL ADVANCE DIET AND ALLOW PATIENT WATER/CLEARS MUCH NEEDED. ALL PT CARE NEEDS MET, VS COMPLETED, PT OXIMETRY IN PLACE. PT DENIES ANY OTHER NEEDS AT THIS TIME. CALL LIGHT WITHIN REACH.
--- NOTE | 2025-11-18 16:40 | NUR ---
PT AWAKENS, REUQESTING TO SIT UP IN BED AT THIS TIME. STATES NAUSEA IS DOING GOOD, DENIES HEADACHE, PT STATES PAIN IS IMPROVING FEELS LIKE A 5/10 AT THIS TIME, DOES WANT TO TRY HER DINNER, ENCOURAGE PATIENT TO TAKE IT SLOW, PT VERBALIZES UNDERSTANDING. PT CURRENTLY ON HER CELL PHONE. CALL LIGHT WITHIN REACH. DENIES ANY FURTHER NEEDS AT THIS TIME.
--- NOTE | 2025-11-18 17:30 | NUR ---
THIS RN INTO ROOM, PT HAD APPLE JUICE/SF JELLO, 50% OF MEAL, STATES HER PAIN AFTER EATING SOME FOOD HAS EVEN IMPROVED /. PT DENIES NAUSEA. PT AMBULATES TO BATHROOM, WAS SLIGHTLY OFF BALANCE WHEN TURNING AROUND, UTILIZED THE CANE. GOWN CHANGED. PT BACK IN BED AT THIS TIME, CALL LIGHT WIHTIN REACH.
--- NOTE | 2025-11-18 19:52 | NUR ---
REPORT RECEIVED, PATIENT RESTING IN BED, RESPIRATIONS EVEN AND UNLABORED. IVF CONTINUING TO INFUSE PER ORDER WITHOUT DIFFICULTY. NO NEEDS IDENTIFIED, CALL LIGHT IN REACH
--- NOTE | 2025-11-18 20:30 | NUR ---
DR. AYOUB AT BEDSIDE. VERBAL ORDER RECEIVED TO DECREASE CONTINUOUS IV FLUID RATE FROM 200ML/HR TO 125 ML/HR. IV FLUID RATE DECREASED PER ORDER.
--- NOTE | 2025-11-18 20:35 | NUR ---
VS OBTAINED AND RECORDED. PATIENT UP TO RESTROOM TO VOID, SBA WITH USE OF CANE, PATIENT DENIES ANY DIZZINESS, STEADY ON FEET. BACK TO BED WITHOUT DIFFICULTY. PATIENT DENIES HEADACHE, REPORTS 4/10 PAIN. CIWA SCORE COMPLETED, ASSESSMENT COMPLETE. SCHEDULED MEDICATION GIVEN TO PATIENT PER ORDER. NO FURTHER NEEDS, CALL LIGHT IN REACH.
[2025-11-18] MEDS ORDERED: MELATONIN 3 MG TAB PO PRN (21:00)
--- NOTE | 2025-11-18 21:13 | NUR ---
PATIENT REPORTED INCREASED NAUSEA, REQUESTING NAUSEA MEDICATION. PRN MEDICATION FOR NAUSEA GIVEN PER ORDER. IVF CONTINUING TO INFUSE PER ORDER. RESPIRATIONS EVEN AND UNLABORED. SCD IN PLACE AND PUMPING. PATIENT DENIES ANY FURTHER NEEDS, CALL LIGHT IN REACH.
--- NOTE | 2025-11-18 22:53 | NUR ---
NEW IVF BAG HUNG PER ORDER, IVF INFUSING WITHOUT DIFFICULTY. PATIENT UP TO RESTROOM, SBA WITH USE OF CANE. BACK TO BED WITHOUT DIFFICULTY. PATIENT DENIES ANY FURTHER NEEDS, STATES HER NAUSEA HAS RESOLVED. HAS NO OTHER COMPLAINTS AT THIS TIME. CALL LIGHT IN REACH
[2025-11-19] VITALS (9 sets, daily range): BP systolic 115–177; BP diastolic 66–83
--- NOTE | 2025-11-19 00:50 | NUR ---
PT STATES SHE CAN'T SLEEP AND HAS 4/10 GENERALIZED ACHES. PRN MEDS PROVIDED. PT STATES SHE KEEPS "BURPING UP ROTTEN EGGS", PT SITTING UP IN BED AT THIS TIME. CALL LIGHT IN REACH.
--- NOTE | 2025-11-19 02:33 | NUR ---
ASSESSMENT, VS AND I&O COMPLETED. SCHEDULED MED PROVIDED. PT STATES SHE STILL HAS NAUSEA, MED PROVIDED. PT STATES PAIN IN 03/04, PAIN MED RECENTLY PROVIDED. PT STATES NO OTHER NEEDS AT THIS TIME. CALL LIGHT IN REACH.
--- NOTE | 2025-11-19 03:41 | NUR ---
PT RESTING IN BED, EYES CLOSED. RR EVEN, UNLABORED. CALL LIGHT IN REACH.
--- NOTE | 2025-11-19 04:38 | NUR ---
PT RESTING IN BED, EYES CLOSED. RR EVEN, UNLABORED. CALL LIGHT IN REACH.
[2025-11-19 05:29] LABS: BASOPHILS 0.3 % (0.1-1.2); EOSINOPHILS 0.4 % (0.7-5.8); LYMPHOCYTES 16.1 % (19.3-51.7); MCH 32.5 PG (25.6-32.2); MCHC 34.2 g/dL (32.2-35.5); MCV 95.0 fL (79.4-94.8); MONOCYTES 5.5 % (4.7-12.5); NEUTROPHILS 76.8 % (34.0-71.1); RBC 4.83 M/uL (3.93-5.22)
--- NOTE | 2025-11-19 05:33 | NUR ---
PT CALLS TO USE BR, PROVIDED. PT WALKS WITH CANE WELL. PT REPORTS PAIN IS 4/10 BUT DENIES NEED FOR PAIN MEDS. PT IS ALERT AND ORIENTED X4. ICE WATER PROVIDED. NO OTHER NEEDS STATED. CALL LIGHT IN REACH.
[2025-11-19 06:02] LABS: ALT (SGPT) 47.0 U/L (14-59); AST (SGOT) 26.0 U/L (15-37); GLOMERULAR FILTRATION RATE,EST 108.0 mL/min (>60); PROTEIN, TOTAL 7.6 g/dL (6.4-8.2); UREA NITROGEN 11.0 mg/dL (7-18)
[2025-11-19] MEDS ORDERED: MULTIVITAMINS THERAPEUTIC 1 EA TAB PO SCH (08:00)
--- NOTE | 2025-11-19 08:25 | NUR ---
PT AAO RESTING IN BED ON SIDE AWAKE - CBG TAKEN, 7 UNITS SS COVERAGE. PT REPORTS 4/10 PAIN IN ABD, NO NAUSEA. PT AMBULATES TO BATHROOM USING CANE, STEADY ON FEET. 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 BACK TO CHAIR TO EAT BREAKFAST. CALL LIGHT IN REACH.
[2025-11-19] MEDS ORDERED: POTASSIUM CHLORIDE 40 MEQ,LIDOCAINE HCL 1% 40 MG in DEXTROSE 5% 250 ML IV ONE (09:00)
[2025-11-19] MEDS ORDERED: AMLODIPINE BESYLATE 5 MG TAB PO SCH (09:00)
[2025-11-19] MEDS ORDERED: METOPROLOL TARTRATE 25 MG TAB PO SCH (09:00)
[2025-11-19] MEDS ORDERED: INSULIN GLARGINE-YFGN 100 UNIT/ML ML SUB-Q SCH (09:00)
[2025-11-19] MEDS ORDERED: DULOXETINE HCL 60 MG CAP PO SCH (09:00)
[2025-11-19] MEDS ORDERED: PREGABALIN 50 MG CAP PO SCH (09:00)
--- NOTE | 2025-11-19 09:16 | NUR ---
PT C/O NAUSEA MEDICATED WITH ZOFRAN AT THIS TIME. SLOW IVP. PT UP IN THE CHAIR AND TALKING WITH [place].
--- NOTE | 2025-11-19 10:18 | NUR ---
UR CLINICAL REVIEW: 2 MN JELLY, MEETS INPT FOR ACUTE PANCREATITIS EPIGASTRIC ABD PAIN, LIPASE >375, IV FLUIDS, IV MEDS, NPO MEDICARE INPT 11/18/25 @ 0811 ORDER MATCHES REG NO AUTH REQUIRED PER MEDICARE RULES DC TO HOME WHEN MEDICALLY READY. DC REVIEW: 11/20/2025
--- NOTE | 2025-11-19 10:48 | NUR ---
MD IN ROOM ROUNDING - DISCUSS PLAN TO HOPEFUL DC HOME TOMORROW. PT STATES UNDERSTANDING, ALL QUESTIONS ANSWERED. VERBAL ORDER TO DC IVF PT IS INTAKE ORALLY ADEQUATE. PLAN TO CALL PCP OFFICE FOR F/U APPOINTMENT END OF NEXT WEEK. PT UP TO BATHROOM TO VOID, REMAINS STEADY ON FEET USING HOME CANE. BACK TO CHAIR WITH CALL LIGHT IN REACH.
--- NOTE | 2025-11-19 12:03 | NUR ---
INTO SEE PATIENT. PERSONAL HEALTH INFORMATION REVIEWED. PATIENT LIVES AT HOME WITH HER DAUGHTER ROBYN. STATES HER DAUGHTER IS HER GREEN BUILDING ARCHITECT. SHE HAS FOUR STEPS THAT ARE NOW ADA ACCESSIBLE. PATIENT HAS A WALKER, CANE AND WHEELCHAIR AT HOME. USES WALKER AT BASELINE. STILL DRIVES. DENIES ANY DIFFCULTY PAYING UTLITIES OR OBTAINING FOOD. PATIENT DAUGHTER WILL PICK HER UP WHEN MEDICALLY CLEARED. TALKED WITH PATIENT ABOUT YANA AND CCS. PATIENT ALREADY ESTABLISHED WITH CCS. GAVE HER INFORMATION ABOUT YANA WELL. SHE HAS NO OTHER QUESITIONS. NO FUTHER CM NEEDS
[2025-11-19] MEDS ORDERED: Insulin Regular, Human 100 UNIT/ML ML SUB-Q SCH (12:28)
[2025-11-19] MEDS ORDERED: IBLOOD GLUCOSE TEST STRIP 1 EA TEST VI SCH (12:30)
--- NOTE | 2025-11-19 13:37 | NUR ---
PT DONE WITH LUNCH, ABLE TO TOLERATE CLEAR LIQS, SOME NAUSEA. VS STABLE. UP TO BATHROOM TO VOID, BACK TO BED TO REST, CALL LIGHT IN REACH.
--- NOTE | 2025-11-19 15:24 | NUR ---
PT C/O NAUSE AND ZOFRAN GIVEN AT THIS TIME.
--- NOTE | 2025-11-19 16:11 | EKG ---
[facility] [address] [place] [address] Signed Normal sinus rhythm Normal ECG When compared with ECG of 29-JUN-2025 01:01, No significant change was found Confirmed by Kalani Ayoub DO ([id number]) on 11/19/2025 4:11:00 PM Electronically Signed By: KALANI AYOUB DO 11/19/25 1611 PATIENT NAME: RUCHI PRAJAPATI Electrocardiogram DATE OF : 68 PHYSICIAN: KALANI AYOUB DO REPORT #: [id number] REPORT IS CONFIDENTIAL AND NOT TO BE RELEASED WITHOUT AUTHORIZATION
--- NOTE | 2025-11-19 16:35 | NUR ---
PT RESTING IN BED, PO LOPRESSOR ADMINISTERED, PT REMAINS HYPERTENSIVE. PT REPORTS NAUSEA IS IMPROVING AFTER PRN ZOFRAN. PT DENIES ANY FURTHER NEEDS.
--- NOTE | 2025-11-19 18:15 | NUR ---
PT UP IN CHAIR FOR DINNER - PT REPORTS NAUSEA IS PERSISTANT THIS EVENING AND "NOT FEELING WELL". 5 UNITS INSULIN COVERAGE FOR CBG 275. PT ENCOURAGED TO TAKE DINNER TRAY SLOWLY.
[2025-11-19] MEDS ORDERED: PRAZOSIN HCL 5 MG CAP PO SCH (21:00)
--- NOTE | 2025-11-19 23:05 | NUR ---
PT ARRIVES TO ROOM VIA RECLINER. VS OBTAINED. WNL. PT TRANSFERED WITH SBA AND CANE TO BED, TOLERATED WELL. PRIMARY RN AT BEDSIDE MEDICAL RECEPTIONIST BILLER EXITS ROOM. CALL LIGHT AND PERSONAL ITEMS IN PT'S REACH.
--- NOTE | 2025-11-19 23:36 | NUR ---
2305- TRANSFERRED FROM ICU TO ROOM 123. ALERT AND ORIENTED. ON ROOM AIR, BRUISED AND SCABBED OVER AND FRESH SCABS OVER ARMS, FRAGILE SKIN "I HAVE PSORIAIS AND I SCRATCH MY SKIN". SL LW PATENT. CLEAR LUNGS, ABD DISTENDED, MEJIA TENDER. NO FURTHER C/O N/V. EDEMA PITTING 1+ LEGS AND R HAND. CIWA 4, ANXIOUS AND TEARY EYED DUE TO NEW DX OF LIVER CIRROSIS AND LIFESTYLE CHANGES NEEDED IN CAROLINE FUTURE. PLEASANT AND COOPERATIVE
--- NOTE | 2025-11-20 01:42 | NUR ---
Resting, eyes closed, no s/sx distress, on room air, call light and fluids at hands reach. LE elevated, hob elevated
--- NOTE | 2025-11-20 03:49 | NUR ---
RESTING, EYES CLOSED, NO S/SX DISTRESS, ON ROOM AIR, REPOSITIONS SELF IN BED
[2025-11-20 05:23] VITALS: BP 133/68
--- NOTE | 2025-11-20 05:26 | NUR ---
CALL LIGHT ANSWERED. PT NEEDED TO USE BATHROOM. [employer] SBA TO ABTHROOM. PT VOIDED AND ASSISTED BACK TO BED. VITALS AND I&O OBTAINED. PT STATES NO FURTHER NEEDS AT THIS TIME. CALL LIGHT WITHIN REACH.
[2025-11-20 05:38] VITALS: BP 133/68
--- NOTE | 2025-11-20 05:39 | NUR ---
awake, cooperative with vitlas, labs and second assessment. Up to BRp, voiding dark yellow urine. Lotion applied to scabbed areas on arms. scd's in place no c/o pain
[2025-11-20 05:52] LABS: ALT (SGPT) 37.0 U/L (14-59); AST (SGOT) 24.0 U/L (15-37); GLOMERULAR FILTRATION RATE,EST 111.0 mL/min (>60); PROTEIN, TOTAL 6.2 g/dL (6.4-8.2); UREA NITROGEN 10.0 mg/dL (7-18)
[2025-11-20 05:53] LABS: BASOPHILS 0.2 % (0.1-1.2); EOSINOPHILS 0.9 % (0.7-5.8); LYMPHOCYTES 27.2 % (19.3-51.7); MCH 32.6 PG (25.6-32.2); MCHC 34.1 g/dL (32.2-35.5); MCV 95.6 fL (79.4-94.8); MONOCYTES 6.6 % (4.7-12.5); NEUTROPHILS 64.4 % (34.0-71.1); RBC 4.33 M/uL (3.93-5.22)
[2025-11-20] MEDS ORDERED: LEVOTHYROXINE SODIUM 75 MCG TAB PO SCH (07:00)
--- NOTE | 2025-11-20 07:14 | NUR ---
Pt report received from PATRICIA Morin. Pt is resting in bed on her left side, lights off, eyes closed, breathing is regular, even, and non-labored. White board updated by kathryn Chowdary. Side rails up x4, call light in reach.
[2025-11-20] MEDS ORDERED: THIAMINE HCL 100 MG TAB PO SCH (08:00)
[2025-11-20] MEDS ORDERED: FOLIC ACID 1 MG TAB PO SCH (08:00)
[2025-11-20 09:04] VITALS: BP 107/75
[2025-11-20 09:05] VITALS: BP 107/75
--- NOTE | 2025-11-20 09:07 | NUR ---
In with pt for morning meds and assessment. Pt is A&O, sitting up in the chair, finishing her clear liquid breakfast. Pt states she is ready to advance to full liquid and that she was hungry so she ate/drank her breakfast pretty quickly then decided that was too fast, but she is without pain and is feeling good. She plans to shower shortly after assessment, and Yessenia Chowdary was notified that the pt is ready when she is able to assist her to set up her shower. Pt states her passed and she hasn't had any time alone to herself to grieve and process as her youngest daughter moved back home after he passed. The pt states she feels it is "time for her to move out so I can have some time to myself to grieve". Pt denies further needs at this time. Call light in reach.
--- NOTE | 2025-11-20 09:15 | NUR ---
PT UP IN THE ROOM TAKING A SHOWER LINENS CHANGED AT THIS TIME
[2025-11-20] MEDS ORDERED: ONDANSETRON ODT8 MG PO (11:03)
[2025-11-20] MEDS ORDERED: NALTREXONE HCL50 MG PO (11:04)
== END 2025-11-20 13:09 | disposition home or self-care (01) | DRG 439 ==
LOC: ED 22:25 → CCU 22:27 → MS 11-19 21:36
PROVIDERS: Internal Medicine; ADMIT Student in an Organized Health Care Education/Training Program; ATTEND Student in an Organized Health Care Education/Training Program
DX: K85.20 Alcohol induced acute pancreatitis without necrosis or infection (principal); F10.130 Alcohol abuse with withdrawal, uncomplicated; K70.30 Alcoholic cirrhosis of liver without ascites; F41.1 Generalized anxiety disorder; F32.9 Major depressive disorder, single episode, unspecified; I10 Essential (primary) hypertension; E03.9 Hypothyroidism, unspecified; E11.9 Type 2 diabetes mellitus without complications; G89.29 Other chronic pain; M54.50 Low back pain, unspecified; K21.9 Gastro-esophageal reflux disease without esophagitis; Z88.2 Allergy status to sulfonamides; Z88.5 Allergy status to narcotic agent; Z88.7 Allergy status to serum and vaccine; Z88.8 Allergy status to other drugs, medicaments and biological substances
CPT/HCPCS: 36415; 74177; 80053; 80061; 80307; 81003; 83036; 83605; 83690; 83735; 84484; 85025; 87040; 93005; 93010; 96365; 96375; 96376; 99285-25; A9270; G0378; G0480; J0696; J1171; J1815; J1885; J2405; J2765; J3411; J3480; J3490; J7060; J7121; Q0177; Q9967